=== PATIENT | female | born 1950 | race African-American/Black ===

== ENCOUNTER 2017-05-05 16:44 | Inpatient (IN) | payer MEDICARE, MEDICAID ==
--- NOTE | 2017-05-05 17:11 | RADIOLOGY REPORT (SQ) ---
EXAM DESCRIPTION: CT HEAD WITHOUT COMPLETED DATE/TIME: 05/05/2017 4:58 pm REASON FOR STUDY: bed mp stroke alert COMPARISON: None. TECHNIQUE: Axial images acquired through the brain without intravenous contrast. Images reviewed wi th bone, brain and subdural windows. Images stored on PACS. All CT scanners at this facility use dose modulation, iterative reconstruction, and/or weight based d osing when appropriate to reduce radiation dose to as low as reasonably achievable (ALARA). [facility]: Dose Right [facility]: CareDose [facility]: Dose Right [facility]: Teradose 4D [facility]: Smart Technologies RADIATION DOSE: Up-to-date CT equipment and radiation dose reduction techniques were employed. CTDIv ol: 64.6 mGy. DLP: 1163 mGy-cm. mGy. LIMITATIONS: None. FINDINGS: VENTRICLES: Normal size and contour. CEREBRUM: No masses. No hemorrhage. No midline shift. No evidence for acute infarction. Spotty de creased biparietal periventricular white matter density likely from chronic small vessel disease. Lo w attenuation in the right and left inferior basal ganglia likely perivascular spaces CEREBELLUM: No masses. No hemorrhage. No alteration of density. No evidence for acute infarction. EXTRAAXIAL SPACES: No fluid collections. No masses. ORBITS AND GLOBE: No intra- or extraconal masses. Normal contour of globe without masses. CALVARIUM: No fracture. PARANASAL SINUSES: No fluid or mucosal thickening. SOFT TISSUES: No mass or hematoma. OTHER: No other significant finding. IMPRESSION: Biparietal small vessel chronic appearing white matter disease. No CT evidence of acute ischemic change, acute intracranial hemorrhage, mass effect, or midline shift . EVIDENCE OF ACUTE STROKE: NO. COMMENT: Pertinent findings on the imaging study reported as a CRITICAL RESULT to At17:0 0 on 05/05/2017. Category of Critical Result: CT stroke alert Quality ID # [id number]: Final reports with documentation of one or more dose reduction techniques (e.g., Au tomated exposure control, adjustment of the mA and/or kV according to patient size, use of iterative reconstruction technique) TECHNICAL DOCUMENTATION: JOB ID: [id number] Submitt[employer]- All Rights Reserved
--- NOTE | 2017-05-05 17:15 | RADIOLOGY REPORT (SQ) ---
EXAM DESCRIPTION: CHEST SINGLE VIEW COMPLETED DATE/TIME: 05/05/2017 5:02 pm REASON FOR STUDY: bed mp stroke alert COMPARISON: None. EXAM PARAMETERS: NUMBER OF VIEWS: One view. TECHNIQUE: Single frontal radiographic view of the chest acquired. RADIATION DOSE: NA LIMITATIONS: None. FINDINGS: LUNGS AND PLEURA: No opacities, masses or pneumothorax. No pleural effusion. MEDIASTINUM AND HILAR STRUCTURES: No masses. Contour normal. HEART AND VASCULAR STRUCTURES: Heart normal in size. Normal vasculature. BONES: No acute findings. HARDWARE: None in the chest. OTHER: No other significant finding. IMPRESSION: NO ACUTE RADIOGRAPHIC FINDING IN THE CHEST. TECHNICAL DOCUMENTATION: JOB ID: [id number]
[2017-05-05 18:03] LABS: PROTHROMBIN TIME 12.8 SEC (11.4-15.4)
[2017-05-05 18:13] LABS: ABSOLUTE EOSINOPHILS # (AUTO) 0.1 10^3/uL (0.0-0.6); ABSOLUTE LYMPHOCYTES (AUTO) 0.9 10^3/uL (0.5-4.7); ABSOLUTE MONOCYTES (AUTO) 0.4 10^3/uL (0.1-1.4); ABSOLUTE NEUT (AUTO) 4.5 10^3/uL (1.7-8.2); BASOPHILS % (AUTO) 0.3 % (0-2); EOSINOPHILS % (AUTO) 0.9 % (0-6); HEMATOCRIT 33.7 % (36.0-47.0); HEMOGLOBIN 11.3 g/dL (12.0-15.5); HGB HCT DIFFERENCE 0.2; LYMPHOCYTES % (AUTO) 14.6 % (13-45); MEAN CORPUSCULAR HEMOGLOBIN 25.6 pg (27.0-33.4); MEAN CORPUSCULAR HGB CONC 33.5 g/dL (32.0-36.0); MEAN CORPUSCULAR VOLUME 76 fl (80-97); MONOCYTES % (AUTO) 7.2 % (3-13); RED BLOOD COUNT 4.41 10^6/uL (3.72-5.28); RED CELL DISTRIBUTION WIDTH 13.8 % (11.5-14.0); WHITE BLOOD COUNT 5.9 10^3/uL (4.0-10.5)
[2017-05-05 18:22] LABS: ALANINE AMINOTRANSFERASE 42 U/L (9-52); ALBUMIN 4.4 g/dL (3.5-5.0); ALKALINE PHOSPHATASE 117 U/L (38-126); ASPARTATE AMINO TRANSFERASE 39 U/L (14-36); BILIRUBIN,DIRECT 0.4 mg/dL (0.0-0.4); BILIRUBIN,TOTAL 0.5 mg/dL (0.2-1.3); BLOOD UREA NITROGEN 94 mg/dL (7-20); CARBON DIOXIDE 19 mmol/L (22-30); CHLORIDE 81 mmol/L (98-107); CREATINE KINASE 552 U/L (30-135); GLUCOSE 156 mg/dL (75-110); POTASSIUM 4.8 mmol/L (3.6-5.0); TOTAL PROTEIN 7.2 g/dL (6.3-8.2)
--- NOTE | 2017-05-05 18:23 | ER Document Report ---
ED Medical Screen (RME) - General Chief Complaint: Weakness Stated Complaint: POSSIBLE STROKE SYMPTOMS Time Seen by Provider: 05/05/17 17:22 - Related Data Allergies/Adverse Reactions: Sulfa (Sulfonamide Antibiotics) Allergy (Verified 05/05/17 16:51) Past Medical History - Social History Chew tobacco use (# tins/day): No Frequency of alcohol use: None Drug Abuse: None - Past Medical History Cardiac Medical History: Reports: Hx Heart Attack Endocrine Medical History: Reports: Hx Diabetes Mellitus Type 1 Renal/ Medical History: Denies: Hx Peritoneal Dialysis Past Surgical History: Reports: Hx Cardiac Catheterization - stents placed Physical Exam - Vital signs Vitals: Temp Pulse BP Pulse Ox 97.3 F 67 118/57 L 100 05/05/17 16:45 05/05/17 16:45 05/05/17 16:45 05/05/17 16:45 Course - Vital Signs Vital signs: Temp Pulse Resp BP Pulse Ox 97.3 F 67 118/57 L 100 05/05/17 16:45 05/05/17 16:45 05/05/17 16:45 05/05/17 17:30 - Laboratory Result Diagrams: 05/05/17 17:45 05/05/17 17:45 Laboratory results interpreted by me: 05/05/17 17:45 Hgb 11.3 L Hct 33.7 L MCV 76 L MCH 25.6 L
[2017-05-05 18:28] LABS: CREATININE RESULT 4.69 mg/dL (0.52-1.25)
[2017-05-05 18:29] LABS: ANION GAP 17 (5-19)
[2017-05-05 18:31] LABS: SODIUM 117.4 mmol/L (137-145)
--- NOTE | 2017-05-05 18:31 | ER Document Report ---
ED General - General Chief Complaint: Weakness Stated Complaint: POSSIBLE STROKE SYMPTOMS Time Seen by Provider: 05/05/17 17:22 Notes: Patient says that she has noticed her mouth twitching this morning, both the upper and lower lips. It comes and goes. She has never had it before. She also has noted some tightness in the center of her chest this morning. It is also intermittent. Patient is visiting here from [place]. She was not feeling well yesterday with a headache and some problems with her vision and feeling generalized weakness. She is an insulin-dependent diabetic. She went to a local acute care clinic yesterday. Her blood pressure was noted to be 60/33 and she is on 4 or 5 medications for her blood pressure. She was advised to hold all of her blood pressure medicines for 3 or 4 days before resuming them. She has an appointment to be rechecked at that acute care facility tomorrow. Patient says she has occasional shortness of breath. Has not had any fever or chills or sweats. Denies any UTI symptoms. Patient traveled here from [place] by car, but that was about a month ago. Denies any leg pain or swelling. - Related Data Allergies/Adverse Reactions: Sulfa (Sulfonamide Antibiotics) Allergy (Verified 05/05/17 16:51) Past Medical History - Social History Smoking Status: Never Smoker Chew tobacco use (# tins/day): No Frequency of alcohol use: None Drug Abuse: None Family History: Reviewed & Not Pertinent - Past Medical History Cardiac Medical History: Reports: Hx Heart Attack, Hx Hypertension, Other - Patient describes having a cardiac cath and says clots removed. Endocrine Medical History: Reports: Hx Diabetes Mellitus Type 1 Renal/ Medical History: Denies: Hx Peritoneal Dialysis Musculoskeltal Medical History: Reports Hx Musculoskeletal Trauma - Fractured left femur pinned Past Surgical History: Reports: Hx Cardiac Catheterization - stents placed, Hx Orthopedic Surgery - Fracture left femur Review of Systems - Review of Systems Notes: REVIEW OF SYSTEMS: CONSTITUTIONAL : Denies fever. EENT: Denies eye, ear, nose or mouth or throat pain or other symptoms. See HPI. CARDIOVASCULAR: Intermittent chest pains. RESPIRATORY: Denies cough, chest congestion, but occasionally feels shortness of breath. GASTROINTESTINAL: Denies abdominal pain or nausea, vomiting, or diarrhea. GENITOURINARY: Denies difficulty or painful urinating, urinary frequency, blood in urine. MUSCULOSKELETAL: Denies back or neck pain. Denies joint pain or swelling. SKIN: Denies rash or skin lesions. NEUROLOGICAL: Denies LOC or altered mental status. Denies headache. Denies sensory loss or motor deficits. ALL OTHER SYSTEMS REVIEWED AND NEGATIVE. Physical Exam - Vital signs Vitals: Temp Pulse BP Pulse Ox 97.3 F 67 118/57 L 100 05/05/17 16:45 05/05/17 16:45 05/05/17 16:45 05/05/17 16:45 Interpretation: Normal - Notes Notes: PHYSICAL EXAMINATION: GENERAL: Well-appearing, in no acute distress. Blood pressure 118/57. HEAD: Atraumatic, normocephalic. EYES: Pupils equal round and reactive to light, extraocular movements intact. ENT: oropharynx clear without exudates. Moist mucous membranes. I do not see patients lips twitching or contorting in any way. Speech does not ap NECK: Normal range of motion, supple. No carotid bruits heard. LUNGS: Breath sounds clear and equal bilaterally. HEART: Regular rate and rhythm without murmurs. ABDOMEN: Soft, nontender. No guarding or rebound. BACK: No tenderness throughout entire back. EXTREMITIES: Normal range of motion without pain. NEUROLOGICAL: Normal speech, normal gait. Normal sensory, motor, and reflex exams. Awake, alert, and oriented x3. Cranial nerves normal. PSYCH: Normal mood, normal affect. SKIN: Warm, dry, no rashes. Course - Re-evaluation Re-evalutation: 05/05/17 20:[address] Tinajero about admitting patient. He had concerns about admitting the patient without having nephrology backup here this coming week. I spoke with Dr. Santacruz at [facility], who did not feel the patient would require dialysis based on current laboratory results. He was very helpful in offering recommended workup and treatment. Dr. Tinajero is agreeable to admitting the patient at this time to [facility]. - Vital Signs Vital signs: Temp Pulse Resp BP Pulse Ox 97.3 F 67 18 118/50 L 100 05/05/17 16:45 05/05/17 16:45 05/05/17 19:01 05/05/17 19:01 05/05/17 19:01 - Laboratory Result Diagrams: 05/05/17 17:45 05/05/17 17:45 Laboratory results interpreted by me: 05/05/17 05/05/17 05/05/17 17:45 17:45 17:45 Hgb 11.3 L Hct 33.7 L MCV 76 L MCH 25.6 L Sodium 117.4 L* Chloride 81 L Carbon Dioxide 19 L BUN 94 H Creatinine 4.69 H Est GFR ( Amer) 11 L Est GFR (Non-Af Amer) 9 L Glucose 156 H Calcium 11.0 H AST 39 H Creatine Kinase 552 H CK-MB (CK-2) 6.59 H Urine Blood 05/05/17 18:26 Hgb Hct MCV MCH Sodium Chloride Carbon Dioxide BUN Creatinine Est GFR ( Amer) Est GFR (Non-Af Amer) Glucose Calcium AST Creatine Kinase CK-MB (CK-2) Urine Blood SMALL H - Diagnostic Test Radiology reviewed: Image reviewed, Reports reviewed - CT scan of the brain is normal. Critical Care Note - Critical Care Note Total time excluding time spent on procedures (mins): 40 Discharge - Discharge Clinical Impression: Renal insufficiency, Hyponatremia Condition: Fair Disposition: ADMITTED INPATIENT Admitting Provider: Hospitalist Unit Admitted: IMCU
[2017-05-05 18:33] LABS: CREATINE KINASE MB 6.59 ng/mL (<4.55); TROPONIN I 0.013 ng/mL
[2017-05-05] MEDS ORDERED: NORMAL SALINE 1000 ML 1,000 ML IV ONE ×2 (18:57→20:11)
[2017-05-05 19:02] LABS: APPEARANCE,URINE CLEAR; BILIRUBIN,URINE NEGATIVE (NEGATIVE); GLUCOSE, URINE NEGATIVE (NEGATIVE); KETONES,URINE NEGATIVE (NEGATIVE); LEUKOCYTE ESTERASE,URINE NEGATIVE (NEGATIVE); NITRITE,URINE NEGATIVE (NEGATIVE); PROTEIN,URINE NEGATIVE (NEGATIVE); URINE SPECIFIC GRAVITY 1.004; UROBILINOGEN,URINE NEGATIVE mg/dL (<2.0)
[2017-05-05 20:18] LABS: ADD ON TESTING BLD IN LAB ACKNOWLEDGE
[2017-05-05 20:39] LABS: MAGNESIUM 1.7 mg/dL (1.6-2.3); PHOSPHORUS 4.7 mg/dL (2.5-4.5)
[2017-05-05] MEDS ORDERED: INSULIN REG, HUMAN 100 UNIT/ML 3 ML VIAL (PYX) SUBCUT PRN (21:23)
[2017-05-05] MEDS ORDERED: DEXTROSE 50%-WATER 25 GM/50 ML DISP.SYRIN IV PRN ×2 (21:23)
[2017-05-05] MEDS ORDERED: DEXTROSE 40% GEL 15 GM TUBE PO PRN ×2 (21:23)
[2017-05-05] MEDS ORDERED: GLUCAGON,HUMAN RECOMB 1 MG INJ IM PRN (21:23)
[2017-05-05] MEDS ORDERED: PROMETHAZINE HCL 25 MG TABLET PO PRN (21:31)
[2017-05-05] MEDS ORDERED: ACETAMINOPHEN 325 MG TABLET PO PRN (21:31)
[2017-05-05] MEDS ORDERED: NORMAL SALINE 1000 ML 1,000 ML IV PRN (21:34)
--- NOTE | 2017-05-05 21:58 | PDOC H&P ---
History of Present Illness Admission Date/PCP: 05/05/17 20:36 Dr. Durham, [facility]. 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 Patient has been discussed with emergency room physician who evaluated the patient. Went to a local urgent care yesterday for complaints of mild headache and vision problems along with generalized weakness. Blood pressure there was reportedly 60/33. She was discharged to home, with instructions to hold her blood pressure medicines and return to acute care facility tomorrow. Presented to the emergency room this evening with complaints of intermittent mild twitching of her lips, never having had this before, along with intermittent now resolved mild substernal chest tightness. Has had nausea but no vomiting. No fever or chills. Has had a number of diarrheal stools over the last 2-3 days, without blood. 2 today. No friends or family with similar complaints. No abdominal pain. States a number of her medication dosages were increased by her primary care provider approximately a month ago. She is compliant with her medications. Currently resting quietly, denying any pain. Emergency room physician did discuss the patient by phone with Dr. Santacruz, on- call auto service advisor at [facility]. We have no nephrology coverage at our facility this week. Dr. Santacruz gave basic recommendations, but did not feel dialysis was warranted, and also did not specifically feel that transfer to a tertiary center was warranted. Dictation via voice recognition software. Laboratory results are listed in [facility] and are reviewed. No prior labs available for comparison. X-ray summary results are listed below, with full report(s) reviewed. EKG reviewed. No prior EKG available for comparison. Social history/personal habits: Single. 8 children. Retired. Allergies/adverse reactions are listed in [facility] and are reviewed. Home medications initially autopopulated into [employer] may not accurately reflect patient's true medications, dosages, and/or frequencies. smog technician to reconcile medications. Bottle review did reveal patient currently is on Risperdal, sertraline, twice daily Lasix and Spironolactone, along with daily Toprol-XL, lisinopril, and chlorthalidone. Also takes Lantus 25 units twice daily. Unfortunately, patient not certain of all medications/dosages/frequencies. Thinks she is also on medication for hyperlipidemia, but no such medication noted in her bottles. REVIEW OF SYSTEMS: Constitutional: No fever or chills. Eyes: Wears glasses. ENT: No swallowing problems or complaints. Denies hearing loss. Pulmonary: No current complaints. Cardiovascular: See history and present illness. Gastrointestinal: See history and present illness. Skin: No current complaints, including rashes. Hematologic: Denies easy bruising. Neurologic: See history and present illness. Musculoskeletal: Joint pain from arthritis. Psychiatric: Denies anxiety or depression. Endocrine: No current complaints, including polyuria. Genitourinary: No current complaints, including dysuria. PHYSICAL EXAMINATION: Female emergency room nursing coordinator Hansa is present. 5 feet 5 inches tall. 88 kg. BMI 32.3 kg/m. Blood pressure 139/62. Pulse 84 and regular. 100% saturation on room air. Respirations are 19 and unlabored. Temperature 97.3. Somewhat obese otherwise well-developed -Prydeinig female appearing approximately her stated age. Pleasant awake alert and cooperative. No obvious distress other than perhaps mildly anxious. Skin is warm and dry. No grossly obvious evidence of rash in areas of skin examined. No subcutaneous nodules palpated. ENT: Hearing grossly normal to normal conversation. Tongue midline on protrusion pink and slightly moist. Eyes: No scleral icterus. Pupils equal and reactive to light at 4 mm. [place] conjunctivae. Neck is supple and nontender to gentle active range of motion and palpation. Midline trachea. No palpable thyroid nodule mass enlargement or tenderness. Lymphatic: No palpable cervical or clavicular nodes. Neck and lymphatic exams limited by patient body habitus. Psychiatric: Reasonable insight into acute and chronic medical issues. Oriented to time location and why here. Lungs: Auscultation reveals clear and equal breath sounds bilaterally. No use of accessory respiratory muscles. Cardiovascular: Heart regular rate and rhythm, without gallop murmur or rub. No carotid or abdominal aortic bruits. No ankle or pedal edema. Faintly palpable dorsalis pedis pulses. Abdomen:soft somewhat obese nontender with positive bowel sounds. Unable to adequately evaluate abdomen for masses or organomegaly due to body habitus. Does have very mild symmetric bilateral costovertebral angle tenderness, but this is not too overly remarkable. Extremities: Feet are warm and dry. No calf tenderness to compression. No grossly obvious visual evidence of calf swelling. Gentle manipulation of lower extremities fails to reveal any obvious evidence of injury or instability to knees hips or ankles. Neurologic: Moves upper extremities grossly normally. Patellar reflexes absent. Absent Babinski. Light touch is decreased at feet, a chronic finding, per patient, without recent change. Dorsiflexion and plantarflexion of feet 5 / 5 and symmetric. Past Medical History Cardiac Medical History: Reports: Atrial Fibrillation - History of same; anticoagulant DC'd spring 2016., Coronary Artery Disease - Stent 1 more than 5 years ago, Myocardial Infarction, Hyperlipidema, Hypertension Denies: Congestive Heart Failure, DVT, Pulmonary Embolism Pulmonary Medical History: Denies: Asthma, Chronic Obstructive Pulmonary Disease (COPD), Sleep Apnea EENT Medical History: Reports: Eyes - Glasses Denies: Ears, Throat Neurological Medical History: Reports: Ischemic CVA, Seizures - Distant history 1; never on antiepileptic, Other - Stroke several years ago, without residual aftereffects. Denies: Hemorrhagic CVA Endocrine Medical History: Reports: Diabetes Mellitus Type 1 Renal/ Medical History: Denies: Chronic Kidney Disease GI Medical History: Reports: Peptic Ulcer Disease, Other - "Liver problems." History of bleeding ulcer. Denies: Cirrhosis, Gastroesophageal Reflux Disease, Hepatitis Musculoskeltal Medical History: Reports: Arthritis Skin Medical History: Reports: None Psychiatric Medical History: Denies: Alcohol Dependency, Depression, General Anxiety Disorder, Substance Abuse, Tobacco Dependency Infectious Medical History: Denies: Hepatitis B, Hepatitis C Past Surgical History Past Surgical History: Reports: Cholecystectomy, Coronary Stent - 1, more than 5 years ago, Hysterectomy, Orthopedic Surgery - Fracture left femur Social History Information Source: Emergency Med Personnel, [facility] Records Lives with: Family Smoking Status: Former Smoker Frequency of Alcohol Use: None Drugs: None - Advance Directive Resuscitation Status: Full Code Surrogate healthcare decision maker:: Gm Bautista Family History Family History: Reviewed & Not Pertinent Parental Family History Reviewed: Yes - Mother of cirrhosis; uncertain cause of father's Children Family History Reviewed: Yes - Healthy Sibling(s) Family History Reviewed.: Yes - Hypertension Medication/Allergy Home Medications: Donepezil HCl [Aricept 5 mg Tablet] 5 mg PO DAILY 05/05/17 Ferrous Sulfate [Feosol 325 mg Tablet] 325 mg PO DAILY 05/05/17 Furosemide [Lasix 40 mg Tablet] 40 mg PO BID 05/05/17 Insulin Glargine,Hum.rec.anlog [Lantus Solostar] 25 unit SQ Q12 05/05/17 Lisinopril [Prinivil] 20 mg PO DAILY 05/05/17 Methocarbamol [Robaxin 500 mg Tablet] 500 mg PO Q8HP PRN 05/05/17 Metoprolol Succinate [Toprol Xl 25 mg Tab.sr] 25 mg PO DAILY 05/05/17 [place]-3 Fatty Acids [[place]-3] 1,000 mg PO DAILY 05/05/17 RX: Chlorthalidone [Chlorthalidone 50 mg Tablet] 50 mg PO DAILY 05/05/17 RX: Omeprazole 40 mg PO DAILY 05/05/17 Risperidone [Risperdal] 2 mg PO QHS 05/05/17 Sertraline HCl [Zoloft 50 mg Tablet] 100 mg PO DAILY 05/05/17 Spironolactone [Aldactone] 50 mg PO Q12 05/05/17 Allergies/Adverse Reactions: Sulfa (Sulfonamide Antibiotics) Allergy (Verified 05/05/17 16:51) Physical Exam Vital Signs: Temp Pulse Resp BP Pulse Ox 97.3 F 67 18 118/50 L 100 05/05/17 16:45 05/05/17 16:45 05/05/17 19:01 05/05/17 19:01 05/05/17 19:01 Results Impressions: Chest X-Ray 05/05/17 16:50 IMPRESSION: NO ACUTE RADIOGRAPHIC FINDING IN THE CHEST. Head CT 05/05/17 16:50 IMPRESSION: Biparietal small vessel chronic appearing white matter disease. No CT evidence of acute ischemic change, acute intracranial hemorrhage, mass effect, or midline shift. EVIDENCE OF ACUTE STROKE: NO. Assessment & Plan - Diagnosis (1) Anemia Qualifiers: Anemia type: iron deficiency Is this a current diagnosis for this admission?: Yes Plan: No prior labs available for comparison. Follow-up CBC with differential. No need for transfusion at present time. (2) Diarrhea Qualifiers: Diarrhea type: unspecified type Qualified Code(s): R19.7 - Diarrhea, unspecified Is this a current diagnosis for this admission?: Yes Plan: 2 episodes today. If continues, will obtain stool for C. difficile. (3) Hypercalcemia Is this a current diagnosis for this admission?: Yes Plan: Follow-up chemistry. (4) Chest pain Qualifiers: Chest pain type: unspecified Qualified Code(s): R07.9 - Chest pain, unspecified Is this a current diagnosis for this admission?: Yes Plan: No outward evidence of acute coronary syndrome, but with known underlying coronary artery disease, patient understands to notify staff should chest pain recur. Serial troponin . Repeat EKG. lipid panel. I have strongly encouraged patient not to get out of bed without notifying staff , to avoid a fall with injury. Knee high SCDs for DVT prophylaxis, along with subcu heparin. Impression and plans were discussed with patient, who concurs. Time spent in evaluation and management of patient: 73 minutes. (5) Stented coronary artery Is this a current diagnosis for this admission?: Yes (6) HLD (hyperlipidemia) Qualifiers: Hyperlipidemia type: unspecified Qualified Code(s): E78.5 - Hyperlipidemia , unspecified Is this a current diagnosis for this admission?: Yes Plan: Resume home medications as appropriate once these have been determined and reviewed. (7) Hypertension complicating diabetes Is this a current diagnosis for this admission?: Yes Plan: Resume home medications as appropriate once these have been determined and reviewed. (8) Diabetic peripheral neuropathy associated with type 1 diabetes mellitus Is this a current diagnosis for this admission?: Yes Plan: Diabetic cardiac prerenal diet. Accu-Cheks with appropriate sliding scale coverage. Resume home medications as appropriate once these have been determined and reviewed. (9) Renal insufficiency Is this a current diagnosis for this admission?: Yes Plan: Suspect an element of dehydration, with patient on Lasix, Spironolactone, and chlorthalidone, along with diarrhea. No prior labs available for comparison. Renal ultrasound. IV fluids. Serial chemistry. (10) Hyponatremia Is this a current diagnosis for this admission?: Yes Plan: Urine and serum osmolarity, along with urine sodium. Serial chemistry. - Time Time Spent: 50 to 70 Minutes Medications reviewed and adjusted accordingly: No - Patient not certain of all medications. Anticipated discharge: Home Within: Other - Inpatient Certification Based on my medical assessment, after consideration of the patient's comorbidities, presenting symptoms, or acuity I expect that the services needed warrant INPATIENT care.: Yes I certify that my determination is in accordance with my understanding of Medicare's requirements for reasonable and necessary INPATIENT services [42 CFR 412.3e].: Yes Medical Necessity: Need Close Monitoring Due to Risk of Patient Decompensation, Need For IV Fluids, Risk of Complication if Not Cared For in Hospital Post Hospital Care: D/C or Transfer Summary
[2017-05-05] MEDS: HEPARIN SOD (PORCINE) 5,000 UNIT/ML 1 ML SYRINGE SUBCUT SCH (22:20)
[2017-05-05 22:44] LABS: ANION GAP 15 (5-19); BLOOD UREA NITROGEN 95 mg/dL (7-20); CALCIUM 10.7 mg/dL (8.4-10.2); CARBON DIOXIDE 21 mmol/L (22-30); CHLORIDE 85 mmol/L (98-107); CREATININE RESULT 4.17 mg/dL (0.52-1.25); GLUCOSE 133 mg/dL (75-110); POTASSIUM 4.6 mmol/L (3.6-5.0); SODIUM 121.1 mmol/L (137-145)
[2017-05-05] MEDS ORDERED: 1/2 NORMAL SALINE 1,000 ML IV PRN (23:51)
--- NOTE | 2017-05-06 01:17 | RADIOLOGY REPORT (SQ) ---
EXAM DESCRIPTION: U/S RETROPERITON (RENAL/AORTA) COMPLETED DATE/TIME: 05/06/2017 1:09 am REASON FOR STUDY: renal failure COMPARISON: None. TECHNIQUE: Grayscale images acquired of the kidneys and bladder and recorded on PACS. Additional maggi ected color Doppler images recorded. LIMITATIONS: None. FINDINGS: RIGHT KIDNEY: Measures 7.8 cm in length. Echogenicity within normal limits. No hydroneph rosis. LEFT KIDNEY: Measures 8.8 cm in length. Echogenicity within normal limits. No hydronephrosis. BLADDER: Partially distended. The right ureteral jet was visualized. IMPRESSION: No hydronephrosis. TECHNICAL DOCUMENTATION: JOB ID: [id number] [employer]- All Rights Reserved
[2017-05-06 02:38] LABS: ANION GAP 12 (5-19); BLOOD UREA NITROGEN 94 mg/dL (7-20); CALCIUM 10.8 mg/dL (8.4-10.2); CARBON DIOXIDE 21 mmol/L (22-30); CHLORIDE 88 mmol/L (98-107); CREATININE RESULT 4.08 mg/dL (0.52-1.25); GLUCOSE 177 mg/dL (75-110); POTASSIUM 4.9 mmol/L (3.6-5.0); SODIUM 121.3 mmol/L (137-145)
[2017-05-06 06:16] LABS: ABSOLUTE EOSINOPHILS # (AUTO) 0.1 10^3/uL (0.0-0.6); ABSOLUTE LYMPHOCYTES (AUTO) 0.7 10^3/uL (0.5-4.7); ABSOLUTE MONOCYTES (AUTO) 0.4 10^3/uL (0.1-1.4); ABSOLUTE NEUT (AUTO) 3.6 10^3/uL (1.7-8.2); BASOPHILS % (AUTO) 0.5 % (0-2); EOSINOPHILS % (AUTO) 1.2 % (0-6); HEMATOCRIT 30.4 % (36.0-47.0); HEMOGLOBIN 10.2 g/dL (12.0-15.5); HGB HCT DIFFERENCE 0.2; LYMPHOCYTES % (AUTO) 15.3 % (13-45); MEAN CORPUSCULAR HEMOGLOBIN 25.4 pg (27.0-33.4); MEAN CORPUSCULAR HGB CONC 33.6 g/dL (32.0-36.0); MEAN CORPUSCULAR VOLUME 76 fl (80-97); MONOCYTES % (AUTO) 7.4 % (3-13); RED BLOOD COUNT 4.01 10^6/uL (3.72-5.28); SEGMENTED NEUTROPHILS % (AUTO) 75.6 % (42-78); WHITE BLOOD COUNT 4.8 10^3/uL (4.0-10.5)
[2017-05-06 06:28] LABS: ANION GAP 15 (5-19); BLOOD UREA NITROGEN 90 mg/dL (7-20); CALCIUM 11.2 mg/dL (8.4-10.2); CARBON DIOXIDE 20 mmol/L (22-30); CHLORIDE 88 mmol/L (98-107); CREATININE RESULT 3.72 mg/dL (0.52-1.25); Direct HDL 58 mg/dL (>40); GLUCOSE 139 mg/dL (75-110); POTASSIUM 4.8 mmol/L (3.6-5.0); SODIUM 123.1 mmol/L (137-145); TRIGLYCERIDES 101 mg/dL (<150)
[2017-05-06 06:39] LABS: DIRECT LDL 110 mg/dL (<100)
[2017-05-06] MEDS ORDERED: DEXTROSE 5%-WATER 1000 ML 1,000 ML IV PRN (06:48)
[2017-05-06] MEDS ORDERED: METHOCARBAMOL 500 MG TABLET PO PRN (10:25)
[2017-05-06] MEDS ORDERED: METOPROLOL TARTRATE PF/INJ 5 MG/5 ML SDV IV ONE (10:30)
[2017-05-06] MEDS: HEPARIN SOD (PORCINE) 5,000 UNIT/ML 1 ML SYRINGE SUBCUT SCH ×2 (10:30→21:31)
[2017-05-06] MEDS ORDERED: NORMAL SALINE 1000 ML 1,000 ML IV PRN (11:18)
[2017-05-06 11:24] LABS: ANION GAP 14 (5-19); BLOOD UREA NITROGEN 82 mg/dL (7-20); CALCIUM 11.1 mg/dL (8.4-10.2); CARBON DIOXIDE 22 mmol/L (22-30); CHLORIDE 85 mmol/L (98-107); GLUCOSE 230 mg/dL (75-110); POTASSIUM 4.7 mmol/L (3.6-5.0); SODIUM 121.2 mmol/L (137-145)
[2017-05-06] MEDS ORDERED: SERTRALINE HCL 50 MG TABLET PO ONE (11:30)
[2017-05-06] MEDS ORDERED: FUROSEMIDE 40 MG TABLET PO ONE (11:30)
[2017-05-06] MEDS ORDERED: CHLORTHALIDONE 25 MG TABLET PO ONE (11:30)
[2017-05-06] MEDS ORDERED: LISINOPRIL 10 MG TABLET PO ONE (11:30)
[2017-05-06] MEDS ORDERED: DONEPEZIL HCL 5 MG TABLET PO ONE (11:30)
[2017-05-06] MEDS ORDERED: LANSOPRAZOLE 30 MG TAB.RAP.DR PO ONE (11:30)
[2017-05-06] MEDS ORDERED: SPIRONOLACTONE 25 MG TABLET PO ONE (11:30)
[2017-05-06] MEDS ORDERED: FERROUS SULFATE 325 MG TABLET PO ONE (11:30)
[2017-05-06] MEDS ORDERED: OMEGA-3 ACID ETHYL ESTERS 1 GM CAPSULE PO ONE (11:30)
[2017-05-06] MEDS ORDERED: METOPROLOL SUCCINATE 25 MG TAB.SR.24H PO ONE (11:30)
[2017-05-06] MEDS ORDERED: INSULIN GLARGINE,HUM.REC.ANLOG 300 UNIT/3 ML INSULN.PEN SUBCUT ONE (11:30)
--- NOTE | 2017-05-06 11:58 | PDOC CONSULTATION ---
Consultation Consult Date: 05/06/17 Attending physician:: REY Espino BUSTEANDREZ Consult reason:: Atrial fibrillation History of Present Illness Admission Date/PCP: 05/05/17 21:26 Patient complains of: Shortness of breath History of Present Illness: RADHA HERNANDEZ is a 67 year old -[place] female with type 1 diabetes mellitus with peripheral neuropathy, difficult to control blood pressure, on multiple medications for same, hyperlipidemia, history of atrial fibrillation, with anticoagulant stopped earlier this year, known coronary artery disease, status post stent implant more than 5 years ago, but, by her account, no known underlying renal disease, who presents to the emergency room for evaluation of above complaint. Patient has been discussed with emergency room physician who evaluated the patient. Went to a local urgent care yesterday for complaints of mild headache and vision problems along with generalized weakness. Blood pressure there was reportedly 60/33. She was discharged to home, with instructions to hold her blood pressure medicines and return to acute care facility tomorrow. Presented to the emergency room this evening with complaints of intermittent mild twitching of her lips, never having had this before, along with intermittent now resolved mild substernal chest tightness. Has had nausea but no vomiting. No fever or chills. Has had a number of diarrheal stools over the last 2-3 days, without blood. 2 today. No friends or family with similar complaints. No abdominal pain. States a number of her medication dosages were increased by her primary care provider approximately a month ago. She is compliant with her medications. Currently resting quietly, denying any pain. Emergency room physician did discuss the patient by phone with Dr. Santacruz, on- call deputy united states marshal at [facility]. We have no nephrology coverage at our facility this week. Dr. Santacruz gave basic recommendations, but did not feel dialysis was warranted, and also did not specifically feel that transfer to a tertiary center was warranted. This history was reviewed and confirmed. I interviewed this patient. She claims that she has also noted some shortness of breath and has a long history of intermittent palpitations. She describes history of prior myocardial infarction and history of stent placement approximately 5 years ago at the [facility] in [place], [place] by the name of [facility]. Will try to obtain those records. This morning on rounds by the hospitalist she was noted to be in atrial fibrillation. I was therefore consulted. Review of history suggests that patient has had atrial fibrillation in the past. Past Medical History Cardiac Medical History: Reports: Atrial Fibrillation - History of same; anticoagulant DC'd spring 2016., Coronary Artery Disease - Stent 1 more than 5 years ago, Myocardial Infarction, Hyperlipidema, Hypertension, Other - Patient describes having a cardiac cath and says clots removed. Denies: Congestive Heart Failure, DVT, Pulmonary Embolism Pulmonary Medical History: Denies: Asthma, Chronic Obstructive Pulmonary Disease (COPD), Sleep Apnea EENT Medical History: Reports: Eyes - Glasses Denies: Ears, Throat Neurological Medical History: Reports: Ischemic CVA, Seizures - Distant history 1; never on antiepileptic, Other - Stroke several years ago, without residual aftereffects. Denies: Hemorrhagic CVA Endocrine Medical History: Reports: Diabetes Mellitus Type 1 Renal/ Medical History: Denies: Chronic Kidney Disease GI Medical History: Reports: Peptic Ulcer Disease, Other - "Liver problems." History of bleeding ulcer. Denies: Cirrhosis, Gastroesophageal Reflux Disease, Hepatitis Musculoskeltal Medical History: Reports: Arthritis Skin Medical History: Reports: None Psychiatric Medical History: Denies: Alcohol Dependency, Depression, General Anxiety Disorder, Substance Abuse, Tobacco Dependency Infectious Medical History: Denies: Hepatitis B, Hepatitis C Past Surgical History Past Surgical History: Reports: Cardiac Catheterization - stents placed, Cholecystectomy, Coronary Stent - 1, more than 5 years ago, Hysterectomy, Orthopedic Surgery - Fracture left femur Social History Information Source: Patient Lives with: Family Smoking Status: Former Smoker Last Time Smoked: 44 years ago Frequency of Alcohol Use: None Drugs: None Hx Prescription Drug Abuse: No - Advance Directive Resuscitation Status: Full Code Surrogate healthcare decision maker:: Patient's son and [id number] are surrogate decision-maker Family History Family History: Hypertension Parental Family History Reviewed: Yes Children Family History Reviewed: Yes Sibling(s) Family History Reviewed.: Yes Medication/Allergy Home Medications: Chlorthalidone [Chlorthalidone 50 mg Tablet] 50 mg PO DAILY 05/05/17 Donepezil HCl [Aricept 5 mg Tablet] 5 mg PO DAILY 05/05/17 Ferrous Sulfate [Feosol 325 mg Tablet] 325 mg PO DAILY 05/05/17 Furosemide [Lasix 40 mg Tablet] 40 mg PO BID 05/05/17 Insulin Glargine,Hum.rec.anlog [Lantus Solostar] 25 unit SQ Q12 05/05/17 Lisinopril [Prinivil] 20 mg PO DAILY 05/05/17 Methocarbamol [Robaxin 500 mg Tablet] 500 mg PO Q8HP PRN 05/05/17 Metoprolol Succinate [Toprol Xl 25 mg Tab.sr] 25 mg PO DAILY 05/05/17 Elrama-3 Fatty Acids [Elrama-3] 1,000 mg PO DAILY 05/05/17 Omeprazole 40 mg PO DAILY 05/05/17 Risperidone [Risperdal] 2 mg PO QHS 05/05/17 Sertraline HCl [Zoloft 50 mg Tablet] 100 mg PO DAILY 05/05/17 Spironolactone [Aldactone] 50 mg PO Q12 05/05/17 Atorvastatin Calcium [Lipitor 20 mg Tablet] 20 mg PO QHS #30 tablet 05/06/17 Allergies/Adverse Reactions: Sulfa (Sulfonamide Antibiotics) Allergy (Verified 05/05/17 16:51) Review of Systems Review of Systems: Please see history of present illness and past medical history as wall. Constitutional: No fever or chills reported. Head : No recent chronic headaches, recent head injury. Eyes: No recent eye pain, diplopia, redness, discharge, acute visual changes. Ears: No recent chronic ear pain, acute hearing loss, ear discharge. Oral cavity: No recent ulcerations, bleeding, oral cavity discomfort. Neck: No recent acute neck pain reported. Hematologic: No recent easy bruising or bleeding or hematologic malignancy reported. Lymphatic: No recent lymphatic malignancy, chronic lymphadenopathy reported yet Cardiovascular system review: See history of present illness. Respiratory system review: No recent chronic cough, hemoptysis, blood clots in the lungs reported. Mild Shortness of breath on exertion Gastrointestinal system review: Negative for any recent acute or chronic abdominal pain, hematemesis, melena, recent change in bowel habits. Genitourinary system review: No recent acute or chronic hematuria, flank pain, UTI etc. reported. Skin system review: Negative for any recent abnormal bruising, no rash, no pruritus reported. Neurologic: Describes history of prior strokes and mini strokes but denied seizure disorder. Psychologic: No history of major psychosis or major depression reported. Musculoskeletal: Minor aches and pains reported. No acute joint swelling reported. Endocrine: No recent polyuria, polydipsia, recent heat or cold intolerance. Physical Exam Vital Signs: Temp Pulse Resp BP Pulse Ox 97.9 F 79 20 113/52 L 99 05/06/17 07:50 05/06/17 07:50 05/06/17 07:50 05/06/17 07:50 05/06/17 07:50 Intake & Output 05/05/17 05/06/17 05/07/17 06:59 06:59 06:59 Intake Total 2061 Output Total 1150 Balance 911 Weight 90 kg Exam: GENERAL: well-nourished and in no acute distress. Alert and oriented x3 HEAD: Atraumatic, normocephalic. EYES: Pupils equal round and reactive to light, extraocular movements intact, sclera anicteric, conjunctiva are normal. ENT: TMs normal, nares patent, oropharynx clear without exudates. Moist mucous membranes. No oral ulcerations or bleeding gums noted NECK: supple without lymphadenopathy. Trachea is central. No cervical or axillary lymphadenopathy noted. Carotids are 2+, JVD WNL LUNGS: Respiration seems nonlabored, no significant accessory muscle action noted. Breath sounds clear to auscultation bilaterally and equal noted. No wheezes rales or rhonchi noted. No significant dullness noted on percussion. CHEST: Palpation of the chest wall shows no significant chest wall tenderness. No other significant abnormalities noted. 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 ABDOMEN: Soft, no significant tenderness appreciated, normoactive bowel sounds. No guarding, no rebound. No rigidity noted . No masses appreciated. EXTREMITIES: Pedal pulses are 1-2+, no calf tenderness noted. No clubbing or cyanosis.trace to 1+ pedal edema noted NEUROLOGICAL: Focused neurological exam showed no significant neurologic deficit. Normal speech, no focal weakness appreciated. PSYCH: Normal mood, normal affect. Judgment and insight within normal limits. SKIN: No significant ecchymosis, rash, ulcerations or signs of pruritus noted. MUSCULOSKELETAL EXAM: No significant joint swelling noted. Results Laboratory Results: 05/06/17 06:07 05/06/17 10:11 05/05/17 05/06/17 05/06/17 22:05 02:16 02:16 WBC RBC Hgb Hct MCV MCH MCHC RDW Plt Count Seg Neutrophils % Lymphocytes % Monocytes % Eosinophils % Basophils % Absolute Neutrophils Absolute Lymphocytes Absolute Monocytes Absolute Eosinophils Absolute Basophils Sodium 121.1 L 121.3 L Potassium 4.6 4.9 Chloride 85 L 88 L Carbon Dioxide 21 L 21 L Anion Gap 15 12 BUN 95 H 94 H Creatinine 4.17 H 4.08 H Est GFR ( Amer) 13 L 13 L Est GFR (Non-Af Amer) 11 L 11 L Glucose 133 H 177 H Calcium 10.7 H 10.8 H Triglycerides Cholesterol LDL Cholesterol Direct VLDL Cholesterol HDL Cholesterol TSH 0.89 05/06/17 05/06/17 05/06/17 06:07 06:07 10:11 WBC 4.8 RBC 4.01 Hgb 10.2 L Hct 30.4 L MCV 76 L MCH 25.4 L MCHC 33.6 RDW 14.0 Plt Count 283 Seg Neutrophils % 75.6 Lymphocytes % 15.3 Monocytes % 7.4 Eosinophils % 1.2 Basophils % 0.5 Absolute Neutrophils 3.6 Absolute Lymphocytes 0.7 Absolute Monocytes 0.4 Absolute Eosinophils 0.1 Absolute Basophils 0.0 Sodium 123.1 L 121.2 L Potassium 4.8 4.7 Chloride 88 L 85 L Carbon Dioxide 20 L 22 Anion Gap 15 14 BUN 90 H 82 H Creatinine 3.72 H 3.20 H Est GFR ( Amer) 15 L 17 L Est GFR (Non-Af Amer) 12 L 14 L Glucose 139 H 230 H Calcium 11.2 H 11.1 H Triglycerides 101 Cholesterol 211.70 H LDL Cholesterol Direct 110 H VLDL Cholesterol 20.0 HDL Cholesterol 58 TSH 05/06/17 05/06/17 00:28 06:07 Troponin I < 0.012 0.013 EKG Comments: Initial EKG shows sinus rhythm without any baseline ST-T wave changes. This morning EKG shows atrial fibrillation no acute ST-T wave changes noted Impressions: Chest X-Ray 05/05/17 16:50 IMPRESSION: NO ACUTE RADIOGRAPHIC FINDING IN THE CHEST. Head CT 05/05/17 16:50 IMPRESSION: Biparietal small vessel chronic appearing white matter disease. No CT evidence of acute ischemic change, acute intracranial hemorrhage, mass effect, or midline shift. EVIDENCE OF ACUTE STROKE: NO. Renal Ultrasound 05/06/17 00:00 IMPRESSION: No hydronephrosis. Assessment & Plan - Diagnosis (1) Paroxysmal atrial fibrillation Is this a current diagnosis for this admission?: Yes (2) Chest pain Qualifiers: Chest pain type: unspecified Qualified Code(s): R07.9 - Chest pain, unspecified Is this a current diagnosis for this admission?: Yes (3) Hypertension Qualifiers: Hypertension type: essential hypertension Qualified Code(s): I10 - Essential (primary) hypertension Is this a current diagnosis for this admission?: Yes (4) CAD (coronary artery disease) Qualifiers: Coronary Disease-Associated Artery/Lesion type: [place] artery Associated angina: angina presence unspecified Is this a current diagnosis for this admission?: Yes (5) Diabetes Qualifiers: Diabetes mellitus type: type 2 Diabetes mellitus complication status: with unspecified complications Diabetes mellitus terminal makeup operator insulin use: unspecified terminal makeup operator insulin use status Qualified Code(s): E11.8 - Type 2 diabetes mellitus with unspecified complications Is this a current diagnosis for this admission?: Yes (6) Renal insufficiency Is this a current diagnosis for this admission?: Yes (7) HLD (hyperlipidemia) Qualifiers: Hyperlipidemia type: unspecified Qualified Code(s): E78.5 - Hyperlipidemia , unspecified Is this a current diagnosis for this admission?: Yes - Notes Notes: Atrial fibrillation: Paroxysmal. Patient would be a good candidate for chronic anticoagulation. Eliquis at 2.5 mg p.o. twice daily would be a satisfactory starting dose. For rate control, will start patient on metoprolol succinate 25 mg p.o. twice daily. Patient has a prior history of atrial fibrillation. Coronary artery disease: Currently stable. Since patient had presented with chest pain will schedule patient for a nuclear stress test. Diabetes: Currently under expectant management by hospitalist. Renal insufficiency: Patient being monitored closely by the hospitalist. Patient also under deputy united states marshal care. Hyperlipidemia: In view of known history of CAD, have placed patient on Lipitor 20 mg p.o. nightly. Hypertension: Blood pressure goal is 135/85 or less in this patient. 2D echo and nuclear stress test ordered. Have also adjusted patient's medication. - Time Time Spent: 30 to 50 Minutes - CODE STATUS was discussed, patient remains full code. Surrogate decision-maker patient's son. Multiple medical problems were addressed. More than 50% of the time spent coordinating care, discussing management plans with involved caregivers. Management plans discussed with involved personnels. Medical decision making was of moderate to high complexity , patient's has multiple comorbidities. Medications reviewed and adjusted accordingly: Yes
[2017-05-06 14:37] LABS: ANION GAP 16 (5-19); BLOOD UREA NITROGEN 77 mg/dL (7-20); CALCIUM 11.3 mg/dL (8.4-10.2); CARBON DIOXIDE 21 mmol/L (22-30); CHLORIDE 87 mmol/L (98-107); CREATININE RESULT 2.96 mg/dL (0.52-1.25); GLUCOSE 121 mg/dL (75-110)
--- NOTE | 2017-05-06 17:08 | PDOC PROGRESS REPORT ---
Subjective Progress Note for:: 05/06/17 Subjective:: This is a 67-year-old female Who was admitted for acute renal failure and her blood pressure was initially 60/33. Patient states she lives in [place] and is here visiting her son has been here for about a month. No family was present during my exam and initially her creatinine was 4.3 and her GFR was 13 but patient denies having a history of chronic renal disease. Also her initial sodium level was 117. Her sodium has increased to 124 today. Patient developed A. fib with RVR rate 130 in which is confirmed with EKG. Metoprolol 5 mg IV 1 was given a rate decreased to 80s. Echocardiogram was ordered and cardiology consult. Patient is pleasantly confused Physical Exam Vital Signs: Temp Pulse Resp BP Pulse Ox 97.8 F 77 19 91/54 L 100 05/06/17 10:45 05/06/17 10:45 05/06/17 10:45 05/06/17 10:45 05/06/17 10:45 Intake & Output 05/05/17 05/06/17 05/07/17 06:59 06:59 06:59 Intake Total 2061 476 Output Total 1150 550 Balance 911 -74 Weight 90 kg General appearance: PRESENT: no acute distress, cooperative Head exam: PRESENT: atraumatic, normocephalic Ear exam: PRESENT: normal external ear exam Mouth exam: PRESENT: moist, tongue midline Respiratory exam: PRESENT: clear to auscultation ricardo. ABSENT: rales, rhonchi, wheezes Cardiovascular exam: PRESENT: irregular rhythm, RRR, other - A. fib. ABSENT: diastolic murmur, rubs, systolic murmur Pulses: PRESENT: normal [place] pedis pul Vascular exam: PRESENT: normal capillary refill GI/Abdominal exam: PRESENT: normal bowel sounds, soft. ABSENT: distended, guarding, mass, organolmegaly, rebound, tenderness Rectal exam: PRESENT: deferred Extremities exam: PRESENT: +1 edema Neurological exam: PRESENT: alert, altered, awake, oriented to person, oriented to time, CN II-XII grossly intact. ABSENT: oriented to place, oriented to situation, motor sensory deficit Psychiatric exam: PRESENT: appropriate affect, normal mood. ABSENT: homicidal ideation, suicidal ideation Skin exam: PRESENT: dry, intact, warm. ABSENT: cyanosis, rash Results Laboratory Results: 05/06/17 06:07 05/06/17 14:01 05/05/17 05/06/17 05/06/17 22:05 02:16 02:16 WBC RBC Hgb Hct MCV MCH MCHC RDW Plt Count Seg Neutrophils % Lymphocytes % Monocytes % Eosinophils % Basophils % Absolute Neutrophils Absolute Lymphocytes Absolute Monocytes Absolute Eosinophils Absolute Basophils Sodium 121.1 L 121.3 L Potassium 4.6 4.9 Chloride 85 L 88 L Carbon Dioxide 21 L 21 L Anion Gap 15 12 BUN 95 H 94 H Creatinine 4.17 H 4.08 H Est GFR ( Amer) 13 L 13 L Est GFR (Non-Af Amer) 11 L 11 L Glucose 133 H 177 H Calcium 10.7 H 10.8 H Triglycerides Cholesterol LDL Cholesterol Direct VLDL Cholesterol HDL Cholesterol TSH 0.89 05/06/17 05/06/17 05/06/17 06:07 06:07 10:11 WBC 4.8 RBC 4.01 Hgb 10.2 L Hct 30.4 L MCV 76 L MCH 25.4 L MCHC 33.6 RDW 14.0 Plt Count 283 Seg Neutrophils % 75.6 Lymphocytes % 15.3 Monocytes % 7.4 Eosinophils % 1.2 Basophils % 0.5 Absolute Neutrophils 3.6 Absolute Lymphocytes 0.7 Absolute Monocytes 0.4 Absolute Eosinophils 0.1 Absolute Basophils 0.0 Sodium 123.1 L 121.2 L Potassium 4.8 4.7 Chloride 88 L 85 L Carbon Dioxide 20 L 22 Anion Gap 15 14 BUN 90 H 82 H Creatinine 3.72 H 3.20 H Est GFR ( Amer) 15 L 17 L Est GFR (Non-Af Amer) 12 L 14 L Glucose 139 H 230 H Calcium 11.2 H 11.1 H Triglycerides 101 Cholesterol 211.70 H LDL Cholesterol Direct 110 H VLDL Cholesterol 20.0 HDL Cholesterol 58 TSH 05/06/17 14:01 WBC RBC Hgb Hct MCV MCH MCHC RDW Plt Count Seg Neutrophils % Lymphocytes % Monocytes % Eosinophils % Basophils % Absolute Neutrophils Absolute Lymphocytes Absolute Monocytes Absolute Eosinophils Absolute Basophils Sodium 124.0 L Potassium 5.0 Chloride 87 L Carbon Dioxide 21 L Anion Gap 16 BUN 77 H Creatinine 2.96 H Est GFR ( Amer) 19 L Est GFR (Non-Af Amer) 16 L Glucose 121 H Calcium 11.3 H Triglycerides Cholesterol LDL Cholesterol Direct VLDL Cholesterol HDL Cholesterol TSH 05/06/17 05/06/17 00:28 06:07 Troponin I < 0.012 0.013 Impressions: Chest X-Ray 05/05/17 16:50 IMPRESSION: NO ACUTE RADIOGRAPHIC FINDING IN THE CHEST. Head CT 05/05/17 16:50 IMPRESSION: Biparietal small vessel chronic appearing white matter disease. No CT evidence of acute ischemic change, acute intracranial hemorrhage, mass effect, or midline shift. EVIDENCE OF ACUTE STROKE: NO. Renal Ultrasound 05/06/17 00:00 IMPRESSION: No hydronephrosis. Assessment & Plan - Diagnosis (1) Hypertension Qualifiers: Hypertension type: essential hypertension Qualified Code(s): I10 - Essential (primary) hypertension Is this a current diagnosis for this admission?: Yes Plan: Patient has a history of hypertension currently on several antihypertensive medications but she came in hypotensive blood pressure 60s over 30s will hold her CYNTHIA inhibitors at this time due to her acute renal failure. Also hold her diuretics (2) Acute renal failure Qualifiers: Acute renal failure type: unspecified Qualified Code(s): N17.9 - Acute kidney failure, unspecified Is this a current diagnosis for this admission?: Yes Plan: On admission patient had a sodium of 121, creatinine 4.17, GFR 13, calcium was 10.7, she denies having any issues with her kidneys states she was never told she had chronic kidney disease. She has been on Lasix and diuretics and high blood pressure medications for about 5 years. Also patient denies having any dementia she is currently on dementia medications and has been inconsistent with some of her history I suspect she has acute on chronic renal failure (3) CAD (coronary artery disease) Qualifiers: Coronary Disease-Associated Artery/Lesion type: [place] artery [place] vs. transplanted heart: unspecified whether [place] or transplanted heart Associated angina: angina presence unspecified Qualified Code(s): I25.10 - Atherosclerotic heart disease of [place] coronary artery without angina pectoris Is this a current diagnosis for this admission?: Yes Plan: Patient has past medical history of coronary artery disease with stent placement (4) Chest pain Qualifiers: Chest pain type: unspecified Qualified Code(s): R07.9 - Chest pain, unspecified Is this a current diagnosis for this admission?: Yes (5) Diabetes Qualifiers: Diabetes mellitus type: type 2 Diabetes mellitus complication status: with kidney complications Diabetes mellitus complication detail: with chronic kidney disease Diabetes mellitus terminal block assembler insulin use: unspecified fci insulin use status Chronic kidney disease stage: unspecified stage Qualified Code(s): E11.22 - Type 2 diabetes mellitus with diabetic chronic kidney disease Plan: We will check a hemoglobin A1c in the morning. Patient is unknown glucose and has sliding scale insulin ordered. (6) Hyponatremia Is this a current diagnosis for this admission?: Yes Plan: Initially sodium was 117 on admission. Recheck sodium is increased to 124. Continue to monitor and follow. Will hold her diuretics at this time to help improve her sodium levels (7) Paroxysmal atrial fibrillation Plan: Patient has past medical history of A. fib and she currently is had a episode of A. fib with RVR heart rate was sustained at 130 and confirmed via EKG. currently patient is not on any anticoagulation. And her home medications beta- blockers were not given today. She was given approximately 3 L of IV fluids in the ER. Cardiology consult was obtained and appreciated. And Eliquis 2.5 mg twice daily will be initiated for chronic anticoagulation for A. fib. We will also obtain an echocardiogram and a nuclear stress test. (8) Stented coronary artery Is this a current diagnosis for this admission?: Yes - Time Time Spent with patient: 25-34 minutes Medications reviewed and adjusted accordingly: Yes Anticipated discharge: Home
--- NOTE | 2017-05-06 17:36 | EKG REPORT ---
SEVERITY:- NORMAL ECG - SINUS RHYTHM : Confirmed by: Jackelyn Henry MD 06-May-2017 17:34:35
--- NOTE | 2017-05-06 17:36 | EKG REPORT ---
SEVERITY:- BORDERLINE ECG - SINUS RHYTHM TALL R WAVE IN V2, CONSIDER RVH OR PMI : Confirmed by: Jackelyn Henry MD 06-May-2017 17:34:39
--- NOTE | 2017-05-06 17:36 | EKG REPORT ---
SEVERITY:- ABNORMAL ECG - ATRIAL FIBRILLATION, V-RATE 82-125 : Confirmed by: Jackelyn Henry MD 06-May-2017 17:34:30
[2017-05-06] MEDS ORDERED: FUROSEMIDE 40 MG TABLET PO SCH (18:00)
[2017-05-06 19:13] LABS: ANION GAP 12 (5-19); BLOOD UREA NITROGEN 75 mg/dL (7-20); CALCIUM 11.1 mg/dL (8.4-10.2); CARBON DIOXIDE 23 mmol/L (22-30); CHLORIDE 87 mmol/L (98-107); CREATININE RESULT 2.87 mg/dL (0.52-1.25); GLUCOSE 147 mg/dL (75-110); POTASSIUM 4.8 mmol/L (3.6-5.0)
[2017-05-06] MEDS: INSULIN GLARGINE,HUM.REC.ANLOG 300 UNIT/3 ML INSULN.PEN SUBCUT SCH (21:32)
[2017-05-06] MEDS: ATORVASTATIN CALCIUM 10 MG TABLET PO SCH (21:32)
[2017-05-06] MEDS: RISPERIDONE 1 MG TABLET PO SCH (21:33)
[2017-05-06] MEDS ORDERED: (PENDING PHARMACY ID) (Spironolactone [Aldactone] 50 MG) PO SCH (22:00)
[2017-05-06] MEDS ORDERED: METOPROLOL SUCCINATE 25 MG TAB.SR.24H PO SCH ×2 (22:00→23:00)
[2017-05-06] MEDS ORDERED: SPIRONOLACTONE 25 MG TABLET PO SCH (22:00)
[2017-05-06] MEDS ORDERED: (PENDING PHARMACY ID) (Risperidone [Risperdal] 2 MG) PO SCH (22:00)
[2017-05-07] MEDS ORDERED: NORMAL SALINE 1000 ML 500 ML IV ONE (00:29)
[2017-05-07 05:51] LABS: HEMATOCRIT 29.8 % (36.0-47.0); HEMOGLOBIN 9.8 g/dL (12.0-15.5); HGB HCT DIFFERENCE -0.4; MEAN CORPUSCULAR HGB CONC 32.8 g/dL (32.0-36.0); MEAN CORPUSCULAR VOLUME 76 fl (80-97); RED BLOOD COUNT 3.92 10^6/uL (3.72-5.28); RED CELL DISTRIBUTION WIDTH 13.9 % (11.5-14.0); WHITE BLOOD COUNT 3.6 10^3/uL (4.0-10.5)
[2017-05-07 06:12] LABS: ALANINE AMINOTRANSFERASE 34 U/L (9-52); ALBUMIN 3.4 g/dL (3.5-5.0); ALKALINE PHOSPHATASE 82 U/L (38-126); ANION GAP 11 (5-19); ASPARTATE AMINO TRANSFERASE 30 U/L (14-36); BILIRUBIN,DIRECT 0.3 mg/dL (0.0-0.4); BILIRUBIN,TOTAL 0.3 mg/dL (0.2-1.3); BLOOD UREA NITROGEN 67 mg/dL (7-20); CALCIUM 10.7 mg/dL (8.4-10.2); CARBON DIOXIDE 21 mmol/L (22-30); CHLORIDE 94 mmol/L (98-107); CREATININE RESULT 2.44 mg/dL (0.52-1.25); GLUCOSE 70 mg/dL (75-110); MAGNESIUM 1.4 mg/dL (1.6-2.3); POTASSIUM 4.8 mmol/L (3.6-5.0); SODIUM 125.9 mmol/L (137-145)
[2017-05-07] MEDS: INSULIN GLARGINE,HUM.REC.ANLOG 300 UNIT/3 ML INSULN.PEN SUBCUT SCH ×2 (09:11→21:24)
[2017-05-07] MEDS: HEPARIN SOD (PORCINE) 5,000 UNIT/ML 1 ML SYRINGE SUBCUT SCH (09:14)
[2017-05-07] MEDS ORDERED: METOPROLOL TARTRATE PF/INJ 5 MG/5 ML SDV IV ONE (09:35)
[2017-05-07] MEDS ORDERED: (PENDING PHARMACY ID) (Omega-3 Fatty Acids [Omega-3] 1,000 MG) PO SCH (10:00)
[2017-05-07] MEDS ORDERED: SERTRALINE HCL 50 MG TABLET PO SCH (10:00)
[2017-05-07] MEDS ORDERED: OMEGA-3 ACID ETHYL ESTERS 1 GM CAPSULE PO SCH (10:00)
[2017-05-07] MEDS ORDERED: LISINOPRIL 10 MG TABLET PO SCH (10:00)
[2017-05-07] MEDS ORDERED: CHLORTHALIDONE 50 MG PO SCH (10:00)
[2017-05-07] MEDS ORDERED: METOPROLOL SUCCINATE 25 MG TAB.SR.24H PO SCH (10:00)
[2017-05-07] MEDS ORDERED: DONEPEZIL HCL 5 MG TABLET PO SCH (10:00)
[2017-05-07] MEDS ORDERED: FERROUS SULFATE 325 MG TABLET PO SCH (10:00)
[2017-05-07] MEDS ORDERED: METOPROLOL TARTRATE 25 MG TABLET PO SCH (10:00)
[2017-05-07] MEDS ORDERED: (PENDING PHARMACY ID) (Lisinopril [Prinivil] 20 MG) PO SCH (10:00)
[2017-05-07] MEDS ORDERED: LANSOPRAZOLE 30 MG TAB.RAP.DR PO SCH (10:00)
[2017-05-07] MEDS ORDERED: CHLORTHALIDONE 25 MG TABLET PO SCH (10:00)
--- NOTE | 2017-05-07 10:20 | Physician Advisory Note ---
Physician Advisor ProgressNote .: Pursuant to the plan for [facility], I have reviewed the medical record for this patient. Physician Advisor Statement: Please consider documenting, if you agree: 1. "Acute metabolic acidosis due to ARF" 2. "Acute hyponatremia, suspect due to " [intravascular volume depletion from diuretic tx?] Thanks! CK
--- NOTE | 2017-05-07 11:08 | PDOC PROGRESS REPORT ---
Subjective Progress Note for:: 05/07/17 Subjective:: Patient seems to be doing better with gradual improvement. Pt is denying any chest arm or neck discomfort. Patient denying any PND, orthopnea. Patient denied any sustained palpitations, dizziness, syncope, near syncope. Patient denying any fever chills. Patient denying any other significant discomfort. Patient is maintaining atrial fibrillation. Review of systems: Rest review of systems negative. Medications: Medications have been reviewed. Physical Exam Vital Signs: Temp Pulse Resp BP Pulse Ox 98 F 87 18 95/62 L 100 05/07/17 03:10 05/07/17 02:00 05/07/17 03:07 05/07/17 08:46 05/07/17 08:16 Intake & Output 05/06/17 05/07/17 05/08/17 06:59 06:59 06:59 Intake Total 1 2000 Output Total 1150 1050 Balance 911 951 Weight 90 kg 89.6 kg Exam: GENERAL: well-nourished and in no acute distress. Alert and oriented x3 HEAD: Atraumatic, normocephalic. EYES: Pupils equal round and reactive to light, extraocular movements intact, sclera anicteric, conjunctiva are normal. ENT: TMs normal, nares patent, oropharynx clear without exudates. Moist mucous membranes. No oral ulcerations or bleeding gums noted NECK: supple without lymphadenopathy. Trachea is central. No cervical or axillary lymphadenopathy noted. Carotids are 2+, JVD WNL LUNGS: Respiration seems nonlabored, no significant accessory muscle action noted. Breath sounds clear to auscultation bilaterally and equal noted. No wheezes rales or rhonchi noted. No significant dullness noted on percussion. CHEST: Palpation of the chest wall shows no significant chest wall tenderness. No other significant abnormalities noted. HEART: [place] [employer]IST, No PSH, 1/6 KAIT aortic area, 1/6 rust systolic murmur mitral area, no rubs, no gallops. ABDOMEN: Soft, no significant tenderness appreciated, normoactive bowel sounds. No guarding, no rebound. No rigidity noted . No masses appreciated. EXTREMITIES: Pedal pulses are 1-2+, no calf tenderness noted. No clubbing or cyanosis.trace pedal edema noted NEUROLOGICAL: Focused neurological exam showed no significant neurologic deficit. Normal speech, no focal weakness appreciated. PSYCH: Normal mood, normal affect. Judgment and insight within normal limits. SKIN: No significant ecchymosis, rash, ulcerations or signs of pruritus noted. MUSCULOSKELETAL EXAM: No significant joint swelling noted. Results Laboratory Results: 05/07/17 05:08 05/07/17 05:08 05/06/17 05/06/17 05/06/17 06:07 10:11 14:01 WBC RBC Hgb Hct MCV MCH MCHC RDW Plt Count Sodium 121.2 L 124.0 L Potassium 4.7 5.0 Chloride 85 L 87 L Carbon Dioxide 22 21 L Anion Gap 14 16 BUN 82 H 77 H Creatinine 3.20 H 2.96 H Est GFR ( Amer) 17 L 19 L Est GFR (Non-Af Amer) 14 L 16 L Glucose 230 H 121 H Calcium 11.1 H 11.3 H Magnesium Total Bilirubin AST ALT Alkaline Phosphatase Total Protein Albumin PTH Intact 228 H 05/06/17 05/07/17 05/07/17 18:44 05:08 05:08 WBC 3.6 L RBC 3.92 Hgb 9.8 L Hct 29.8 L MCV 76 L MCH 25.0 L MCHC 32.8 RDW 13.9 Plt Count 281 Sodium 122.0 L 125.9 L Potassium 4.8 4.8 Chloride 87 L 94 L Carbon Dioxide 23 21 L Anion Gap 12 11 BUN 75 H 67 H Creatinine 2.87 H 2.44 H Est GFR ( Amer) 20 L 24 L Est GFR (Non-Af Amer) 16 L 20 L Glucose 147 H 70 L Calcium 11.1 H 10.7 H Magnesium 1.4 L Total Bilirubin 0.3 AST 30 ALT 34 Alkaline Phosphatase 82 Total Protein 6.0 L Albumin 3.4 L PTH Intact 05/06/17 05/06/17 00:28 06:07 Troponin I < 0.012 0.013 EKG Comments: Telemetry strips shows sustained atrial fibrillation over last 24 hours but heart rate intermittently high Impressions: Chest X-Ray 05/05/17 16:50 IMPRESSION: NO ACUTE RADIOGRAPHIC FINDING IN THE CHEST. Head CT 05/05/17 16:50 IMPRESSION: Biparietal small vessel chronic appearing white matter disease. No CT evidence of acute ischemic change, acute intracranial hemorrhage, mass effect, or midline shift. EVIDENCE OF ACUTE STROKE: NO. Renal Ultrasound 05/06/17 00:00 IMPRESSION: No hydronephrosis. Assessment & Plan - Diagnosis (1) Paroxysmal atrial fibrillation Is this a current diagnosis for this admission?: Yes (2) Chest pain Qualifiers: Chest pain type: unspecified Qualified Code(s): R07.9 - Chest pain, unspecified Is this a current diagnosis for this admission?: Yes (3) Hypertension Qualifiers: Hypertension type: essential hypertension Qualified Code(s): I10 - Essential (primary) hypertension Is this a current diagnosis for this admission?: Yes (4) CAD (coronary artery disease) Qualifiers: Coronary Disease-Associated Artery/Lesion type: [place] artery [place] vs. transplanted heart: unspecified whether ambler or transplanted heart Associated angina: angina presence unspecified Qualified Code(s): I25.10 - Atherosclerotic heart disease of [place] coronary artery without angina pectoris Is this a current diagnosis for this admission?: Yes (5) Diabetes Qualifiers: Diabetes mellitus type: type 2 Diabetes mellitus complication status: with kidney complications Diabetes mellitus complication detail: with chronic kidney disease Diabetes mellitus intermediate designer insulin use: unspecified detention insulin use status Chronic kidney disease stage: unspecified stage Qualified Code(s): E11.22 - Type 2 diabetes mellitus with diabetic chronic kidney disease Is this a current diagnosis for this admission?: Yes (6) Renal insufficiency Is this a current diagnosis for this admission?: Yes (7) HLD (hyperlipidemia) Qualifiers: Hyperlipidemia type: unspecified Qualified Code(s): E78.5 - Hyperlipidemia , unspecified Is this a current diagnosis for this admission?: Yes - Notes Notes: Metoprolol succinate was held last night because of concern about low blood pressure. Ordered IV Lopressor 5 mg 1 dose and start back on metoprolol succinate. Started patient on Eliquis, discontinued heparin. Atrial fibrillation: Patient would be a good candidate for chronic anticoagulation. Eliquis at 2.5 mg p.o. twice daily would be a satisfactory starting dose. For rate control, will start patient on metoprolol succinate 25 mg p.o. twice daily. Patient has a prior history of atrial fibrillation. Coronary artery disease: Currently stable. Patient today underwent a nuclear stress test currently results are pending. Diabetes: Currently under expert management by hospitalist. Renal insufficiency: Patient being monitored closely by the hospitalist. 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 Hyperlipidemia: In view of known history of CAD, continue patient on Lipitor 20 mg p.o. nightly. Hypertension: Blood pressure goal is 135/85 or less in this patient. 2D echo and nuclear stress test ordered.. We this will be completed today. Have also adjusted patient's medication. Addendum patient was seen again in the evening. Stress test results were reviewed. 2D echo results reviewed. In addition patient was noted to be transiently hypotensive with blood pressure reported at 88 mmHg but completely asymptomatic. At this point will recommend aggressive risk factor modification and medical management. Will add Ranexa to the regimen. It might help with diastolic dysfunction and atrial fibrillation. - Time Time with patient: Greater than 35 minutes - CODE STATUS was discussed, patient remains full code. Surrogate decision-maker unchanged. Multiple medical problems were addressed. More than 50% of the time spent coordinating care, discussing management plans with involved caregivers. Management plans discussed with involved personnels. Medical decision making was of moderate to high complexity, patient's has multiple comorbidities. Medications reviewed and adjusted accordingly: Yes
--- NOTE | 2017-05-07 12:32 | PDOC PROGRESS REPORT ---
Subjective Progress Note for:: 05/07/17 Subjective:: This is a 67-year-old female Who was admitted for acute renal failure and her blood pressure was initially 60/33. Patient states she lives in [place] and is here visiting her son has been here for about a month. No family was present during my exam and initially her creatinine was 4.3 and her GFR was 13 but patient denies having a history of chronic renal disease. Also her initial sodium level was 117. Her sodium has increased to 124 today. Patient developed A. fib with RVR rate 130 in which is confirmed with EKG. Metoprolol 5 mg IV 1 was given a rate decreased to 80s. Echocardiogram was ordered and cardiology consult. 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 Again today patient A. fib with RVR and some p.o. metoprolol was reordered and was given. Echocardiogram ordered and cardiology consult and input appreciated. Patient's sodium level has increased to 125.9, creatinine is decreased to 2.44 with a GFR of 21. Physical Exam Vital Signs: Temp Pulse Resp BP Pulse Ox 98 F 60 18 111/75 100 05/07/17 03:10 05/07/17 07:00 05/07/17 03:07 05/07/17 09:01 05/07/17 08:16 Intake & Output 05/06/17 05/07/17 05/08/17 06:59 06:59 06:59 Intake Total 2061 2000 Output Total 1150 1050 Balance 911 951 Weight 90 kg 89.6 kg General appearance: PRESENT: no acute distress, well-developed, well-nourished Head exam: PRESENT: atraumatic, normocephalic Eye exam: PRESENT: conjunctiva pink, EOMI, PERRLA. ABSENT: scleral icterus Ear exam: PRESENT: normal external ear exam Mouth exam: PRESENT: moist, tongue midline Neck exam: ABSENT: carotid bruit, JVD, lymphadenopathy, thyromegaly Respiratory exam: PRESENT: clear to auscultation ricardo. ABSENT: rales, rhonchi, wheezes Cardiovascular exam: PRESENT: RRR. ABSENT: diastolic murmur, rubs, systolic murmur Pulses: PRESENT: normal dorsalis pedis pul Vascular exam: PRESENT: normal capillary refill GI/Abdominal exam: PRESENT: normal bowel sounds, soft. ABSENT: distended, guarding, mass, organolmegaly, rebound, tenderness Rectal exam: PRESENT: deferred Extremities exam: PRESENT: full ROM. ABSENT: calf tenderness, clubbing, pedal edema Neurological exam: PRESENT: alert, awake, oriented to person, oriented to place , oriented to time, oriented to situation, CN II-XII grossly intact. ABSENT: motor sensory deficit Psychiatric exam: PRESENT: appropriate affect, normal mood. ABSENT: homicidal ideation, suicidal ideation Skin exam: PRESENT: dry, intact, warm. ABSENT: cyanosis, rash Results Laboratory Results: 05/07/17 05:08 05/07/17 05:08 05/06/17 05/06/17 05/06/17 06:07 14:01 18:44 WBC RBC Hgb Hct MCV MCH MCHC RDW Plt Count Sodium 124.0 L 122.0 L Potassium 5.0 4.8 Chloride 87 L 87 L Carbon Dioxide 21 L 23 Anion Gap 16 12 BUN 77 H 75 H Creatinine 2.96 H 2.87 H Est GFR ( Amer) 19 L 20 L Est GFR (Non-Af Amer) 16 L 16 L Glucose 121 H 147 H Calcium 11.3 H 11.1 H Magnesium Total Bilirubin AST ALT Alkaline Phosphatase Total Protein Albumin PTH Intact 228 H 05/07/17 05/07/17 05:08 05:08 WBC 3.6 L RBC 3.92 Hgb 9.8 L Hct 29.8 L MCV 76 L MCH 25.0 L MCHC 32.8 RDW 13.9 Plt Count 281 Sodium 125.9 L Potassium 4.8 Chloride 94 L Carbon Dioxide 21 L Anion Gap 11 BUN 67 H Creatinine 2.44 H Est GFR ( Amer) 24 L Est GFR (Non-Af Amer) 20 L Glucose 70 L Calcium 10.7 H Magnesium 1.4 L Total Bilirubin 0.3 AST 30 ALT 34 Alkaline Phosphatase 82 Total Protein 6.0 L Albumin 3.4 L PTH Intact 05/06/17 05/06/17 00:28 06:07 Troponin I < 0.012 0.013 Impressions: Chest X-Ray 05/05/17 16:50 IMPRESSION: NO ACUTE RADIOGRAPHIC FINDING IN THE CHEST. Head CT 05/05/17 16:50 IMPRESSION: Biparietal small vessel chronic appearing white matter disease. No CT evidence of acute ischemic change, acute intracranial hemorrhage, mass effect, or midline shift. EVIDENCE OF ACUTE STROKE: NO. Renal Ultrasound 05/06/17 00:00 IMPRESSION: No hydronephrosis. Assessment & Plan - Diagnosis (1) Hypertension Qualifiers: Hypertension type: essential hypertension Qualified Code(s): I10 - Essential (primary) hypertension Is this a current diagnosis for this admission?: Yes (2) Acute renal failure Qualifiers: Acute renal failure type: unspecified Qualified Code(s): N17.9 - Acute kidney failure, unspecified Is this a current diagnosis for this admission?: Yes (3) CAD (coronary artery disease) Qualifiers: Coronary Disease-Associated Artery/Lesion type: [place] artery [place] vs. transplanted heart: unspecified whether [place] or transplanted heart Associated angina: angina presence unspecified Qualified Code(s): I25.10 - Atherosclerotic heart disease of [place] coronary artery without angina pectoris Is this a current diagnosis for this admission?: Yes (4) Chest pain Qualifiers: Chest pain type: unspecified Qualified Code(s): R07.9 - Chest pain, unspecified Is this a current diagnosis for this admission?: Yes (5) Diabetes Qualifiers: Diabetes mellitus type: type 2 Diabetes mellitus complication status: with kidney complications Diabetes mellitus complication detail: with chronic kidney disease Diabetes mellitus penitentiary insulin use: unspecified long term acute care registered nurse insulin use status Chronic kidney disease stage: unspecified stage Qualified Code(s): E11.22 - Type 2 diabetes mellitus with diabetic chronic kidney disease Is this a current diagnosis for this admission?: Yes (6) Hyponatremia Is this a current diagnosis for this admission?: Yes (7) Paroxysmal atrial fibrillation Is this a current diagnosis for this admission?: Yes (8) Stented coronary artery Is this a current diagnosis for this admission?: Yes
[2017-05-07] MEDS ORDERED: REGADENOSON INJ 0.4 MG/5 ML DISP.SYRIN IV ONE (12:33)
[2017-05-07] MEDS ORDERED: AMINOPHYLLINE INJ/PF 250 MG/10 ML SDV IV ONE (12:33)
--- NOTE | 2017-05-07 14:07 | DRAGON STRESS TEST REPORT ---
INTRAVENOUS LEXISCAN CARDIOLITE STRESS TEST USING SINGLE PHOTON EMMISION COMPUTERIZED TOMOGRAPHIC. DATE OF PROCEDURE: May 07, 2017 INDICATION : Chest pain CARDIAC RISK FACTORS: Diabetes, hypertension, dyslipidemia, atrial fibrillation RESTING EKG: Atrial fibrillation, no baseline ST segment changes noted. STRESS EKG: No significant changes noted with LexiScan bolus REASON FOR TERMINATION: Protocol. PROCEDURE REPORT: Baseline heart rate 72 beats per minute with blood pressure of 101/52. Patient had no significant complaints. Heart rate at 2 minutes post bolus 102 with a blood pressure of 94/55. 3 minutes post bolus heart rate 88 with blood pressure of 107/55. No significant EKG changes were noted. Patient had no significant complaints during the procedure or postprocedure. Patient injected with Aminophyllin 75 mg at 3 minutes or later after Lexiscan bolus. CONCLUSIONS: Normal EKG and hemodynamic response to IV LexiScan. NUCLEAR DATA: At rest the patient was given 13.18 millicuries of technetium 99 sestamibi injected intravenously. As per protocol rest gated SPECT images were obtained. Subsequently the patient was given intravenous LexiScan at a dose of 0.4 mg in 5 mL intravenously, followed by flush with normal saline. Subsequently the stress dose of 38.7 millicuries of technetium 99 sestamibi was injected intravenously. As per protocol stress gated images were obtained. NUCLEAR INTERPRETATION: Both raw and processed data were used for interpretation. Visual, qualitative, computer-generated quantitative data was used. There was good myocardial uptake of technetium compound. Motion artifact and soft tissue attenuations were noted. Increased visceral uptake was noted. No definitive areas of transient perfusion defect noted except for mild decreased uptake in the mid and distal anterior wall. This could be related to differences in breast attenuation artifact but cannot rule out an area of mild ischemia. No corresponding regional wall motion and modalities noted on gated imaging. No definitive areas of fixed perfusion defect or scars noted. EKG gated imaging showed LV EF at 58 %, rest and stress gated EF similar visually. T. I D. ratio was 1.27. Lung heart ratio noted to be within normal limits 0.33. No significant extracardiac and abnormal radiotracer activities were noted. RV free wall uptake was noted to be increased. IMPRESSION: Also refer to comments under nuclear interpretation. Also test results needs to be interpreted in the context of pretest probability. 1. Probable mild mid and distal small area of ischemia versus differences in breast attenuation artifact. Clinical correlation requested. There were no corresponding regional wall motion abnormalities on EKG gated imaging. 2. There is no definitive scintigraphic evidence of myocardial infarction/scar. 3. EKG gated imaging shows left ventricular ejection fraction of approximately 58 %. 4. Clinical correlation requested as occasionally single vessel disease or balanced ischemia could be missed. In approximately 10% of the cases Lexiscan may not cause adequate vasodilatory stress. RECOMMENDATIONS: Aggressive risk factor modification, medical therapy. Clinical correlation with echocardiogram derived ejection fraction. Inability to exercise by itself can lead to increased cardiovascular event risks. Consider cardiology consultation and or follow-up if clinically indicated. I AM AVAILABLE FOR CARDIOLOGY CONSULTATION AND FOLLOWUP IF REQUESTED BY PMD Ellie Osman M.D., [employer] logging tractor operator swamp, Board certified in cardiovascular diseases, Nuclear cardiology, Echocardiography Cardiac CT and cardiac MRI Ph. [phone] [facility]
--- NOTE | 2017-05-07 20:03 | XCELERA REPORT ---
[address] [address] Transthoracic Echocardiogram Report Name: RADHA HERNANDEZ Age: 67 yrs Gender: Female : 1950 Patient Status: Inpatient Patient Location: [address] [place] [address] Study Date: 05/07/2017 11:32 AM Height: 65 in Weight: 198 lb BSA: 2.0 m2 Procedure: A complete two-dimensional transthoracic echocardiogram was performed (2D, M-mode, spectral and color flow Doppler). The study was technically difficult with many images being suboptimal in quality. Reason For Study: A-fib with RVR Ordering Physician: KARISSA YOUNG Performed By: Art Irving Interpretation Summary Left ventricular systolic function is low normal. There is borderline concentric left ventricular hypertrophy. The left ventricle is grossly normal size. LV diastolic function could not be adequately assessed due to atrial fibrilation. Wall motion cannot be accurately commented on, but no definite regional wall motion abnormalities noted. The right ventricular systolic function is normal. The left atrium is mildly dilated. The right atrium is normal. There is a trace amount of mitral regurgitation There is no mitral valve stenosis. No aortic regurgitation is present. There is no aortic valve stenosis There is a mild amount of tricuspid regurgitation There is mild pulmonary hypertension by echo Right ventricular systolic pressure is estimated to be elevated at 30- 40mmHg. The aortic root is not well visualized but is probably normal size. The inferior vena cava appeared normal and decreased > 50% with respiration (RAP 5-10 mmHg) There is no pericardial effusion. MMode/2D Measurements & Calculations RVDd: 2.1 cm LVIDd: 4.0 cm FS: 22.2 % Ao root diam: 2.4 cm IVSd: 0.75 cm LVIDs: 3.1 cm EDV(Teich): 70.6 ml LVPWd: 0.81 cm ESV(Teich): 38.6 ml Ao root area: 4.6 cm2 EF(Teich): 45.4 % LA dimension: 2.7 cm Doppler Measurements & Calculations MV E max debbie: MV P1/2t max debbie: Ao V2 max: LV V1 max P.0 cm/sec 71.0 cm/sec 108.6 cm/sec 2.5 mmHg MV P1/2t: 49.1 msec Ao max PG: LV V1 max: 4.7 mmHg 78.4 cm/sec MVA(P1/2t): 4.5 cm2 MV dec slope: 423.2 cm/sec2 PA V2 max: TR max debbie: RAP systole: 72.6 cm/sec 225.2 cm/sec 10.0 mmHg PA max PG: TR max P.4 mmHg 2.1 mmHg RVSP(TR): 30.4 mmHg Left Ventricle The left ventricle is grossly normal size. There is borderline concentric left ventricular hypertrophy. Left ventricular systolic function is low normal. LV diastolic function could not be adequately assessed due to atrial fibrilation. Wall motion cannot be accurately commented on, but no definite regional wall motion abnormalities noted. Right Ventricle The right ventricle is normal in size, thickness and function. Right ventricular size has decreased since the prior echo exam. There is normal right ventricular wall thickness. The right ventricular systolic function is normal. Atria The right atrium is normal. The left atrium is mildly dilated. Interarterial septum not well visualized and not well dopplered. Cannot comment on ASD/PFO presence. Mitral Valve The mitral valve leaflets are sclerotic, but show no functional abnormalities. There is no mitral valve stenosis. There is a trace amount of mitral regurgitation. Aortic Valve The aortic valve is grossly normal. There is no aortic valve stenosis. No aortic regurgitation is present. Tricuspid Valve The tricuspid valve is not well visualized, but is grossly normal. There is no tricuspid stenosis. There is a mild amount of tricuspid regurgitation. There is mild pulmonary hypertension by echo. Right ventricular systolic pressure is estimated to be elevated at 30-40mmHg. Pulmonic Valve The pulmonic valve is not well visualized. Great Vessels The aortic root is not well visualized but is probably normal size. The inferior vena cava appeared normal and decreased > 50% with respiration (RAP 5-10 mmHg). Effusions There is no pericardial effusion. : KARISSA YOUNG > Ellie Osman
[2017-05-07] MEDS: ATORVASTATIN CALCIUM 10 MG TABLET PO SCH (21:24)
[2017-05-07] MEDS: RISPERIDONE 1 MG TABLET PO SCH (21:25)
[2017-05-08] MEDS ORDERED: METOPROLOL TARTRATE PF/INJ 5 MG/5 ML SDV IV ONE (02:48)
[2017-05-08] MEDS ORDERED: NORMAL SALINE 1000 ML 500 ML IV ONE (02:48)
[2017-05-08] MEDS ORDERED: NORMAL SALINE 1000 ML 1,000 ML IV PRN ×3 (02:59→08:22)
[2017-05-08] MEDS: MAGNESIUM SULFATE/D5W 1 GM/100 ML RTUPB IV SCH ×2 (03:27→05:00)
[2017-05-08 03:47] LABS: CREATINE KINASE MB 1.38 ng/mL (<4.55)
[2017-05-08 03:48] LABS: TROPONIN I < 0.012 ng/mL
[2017-05-08] MEDS ORDERED: NORMAL SALINE 1000 ML 2,000 ML IV ONE (06:20)
[2017-05-08] MEDS ORDERED: DEXTROSE 5%-WATER 250 ML with PHENYLEPHRINE HCL 40 MG IV PRN ×4 (06:21→09:08)
[2017-05-08 07:02] LABS: APPEARANCE,URINE CLEAR; BILIRUBIN,URINE NEGATIVE (NEGATIVE); GLUCOSE, URINE NEGATIVE (NEGATIVE); KETONES,URINE NEGATIVE (NEGATIVE); LEUKOCYTE ESTERASE,URINE NEGATIVE (NEGATIVE); NITRITE,URINE NEGATIVE (NEGATIVE); PROTEIN,URINE NEGATIVE (NEGATIVE); URINE SPECIFIC GRAVITY 1.003; UROBILINOGEN,URINE NEGATIVE mg/dL (<2.0)
[2017-05-08 07:26] LABS: FREE T3 3.85 pg/mL (2.77-5.27)
--- NOTE | 2017-05-08 07:58 | RADIOLOGY REPORT (SQ) ---
EXAM DESCRIPTION: CHEST SINGLE VIEW COMPLETED DATE/TIME: 05/08/2017 7:47 am REASON FOR STUDY: Shortness of breath, cough. COMPARISON: Chest x-ray 05/05/2017. EXAM PARAMETERS: NUMBER OF VIEWS: One view. TECHNIQUE: Single frontal radiographic view of the chest acquired. RADIATION DOSE: NA LIMITATIONS: None. FINDINGS: LUNGS AND PLEURA: No consolidation, pneumothorax or pleural effusion. MEDIASTINUM AND HILAR STRUCTURES: No masses. Contour normal. HEART AND VASCULAR STRUCTURES: Heart normal in size. Normal vasculature. BONES: No acute findings. HARDWARE: None in the chest. IMPRESSION: No acute radiographic finding in the chest. TECHNICAL DOCUMENTATION: JOB ID: [id number]
[2017-05-08 09:03] LABS: ABSOLUTE EOSINOPHILS # (AUTO) 0.1 10^3/uL (0.0-0.6); ABSOLUTE LYMPHOCYTES (AUTO) 1.2 10^3/uL (0.5-4.7); ABSOLUTE MONOCYTES (AUTO) 0.3 10^3/uL (0.1-1.4); ABSOLUTE NEUT (AUTO) 2.5 10^3/uL (1.7-8.2); BASOPHILS % (AUTO) 0.7 % (0-2); HEMOGLOBIN 11.1 g/dL (12.0-15.5); HGB HCT DIFFERENCE -0.7; LYMPHOCYTES % (AUTO) 29.1 % (13-45); MEAN CORPUSCULAR HEMOGLOBIN 25.1 pg (27.0-33.4); MEAN CORPUSCULAR HGB CONC 32.6 g/dL (32.0-36.0); MEAN CORPUSCULAR VOLUME 77 fl (80-97); MONOCYTES % (AUTO) 7.9 % (3-13); RED BLOOD COUNT 4.43 10^6/uL (3.72-5.28); RED CELL DISTRIBUTION WIDTH 14.3 % (11.5-14.0); SEGMENTED NEUTROPHILS % (AUTO) 60.3 % (42-78); WHITE BLOOD COUNT 4.1 10^3/uL (4.0-10.5)
[2017-05-08 09:24] LABS: ALANINE AMINOTRANSFERASE 36 U/L (9-52); ALBUMIN 3.6 g/dL (3.5-5.0); ALKALINE PHOSPHATASE 95 U/L (38-126); ANION GAP 12 (5-19); ASPARTATE AMINO TRANSFERASE 24 U/L (14-36); BILIRUBIN,DIRECT 0.3 mg/dL (0.0-0.4); BILIRUBIN,TOTAL 0.3 mg/dL (0.2-1.3); BLOOD UREA NITROGEN 50 mg/dL (7-20); CALCIUM 10.6 mg/dL (8.4-10.2); CARBON DIOXIDE 20 mmol/L (22-30); CHLORIDE 100 mmol/L (98-107); CREATINE KINASE 125 U/L (30-135); CREATININE RESULT 2.05 mg/dL (0.52-1.25); GLUCOSE 69 mg/dL (75-110); MAGNESIUM 1.9 mg/dL (1.6-2.3); POTASSIUM 4.6 mmol/L (3.6-5.0); SODIUM 131.6 mmol/L (137-145); TOTAL PROTEIN 6.5 g/dL (6.3-8.2)
[2017-05-08 09:36] LABS: CREATINE KINASE MB 1.39 ng/mL (<4.55)
[2017-05-08 09:43] LABS: TROPONIN I < 0.012 ng/mL
[2017-05-08] MEDS ORDERED: INSULIN GLARGINE,HUM.REC.ANLOG 300 UNIT/3 ML INSULN.PEN SUBCUT SCH (10:00)
[2017-05-08] MEDS ORDERED: METOPROLOL TARTRATE 25 MG TABLET PO SCH ×2 (10:00→22:00)
[2017-05-08] MEDS ORDERED: ACETAMINOPHEN 325 MG TABLET PO PRN (10:32)
[2017-05-08] MEDS ORDERED: DEXTROSE 50%-WATER 25 GM/50 ML DISP.SYRIN IV PRN ×2 (10:34→10:38)
[2017-05-08] MEDS ORDERED: DEXTROSE 40% GEL 15 GM TUBE PO PRN ×3 (10:39→10:40)
[2017-05-08] MEDS ORDERED: GLUCAGON,HUMAN RECOMB 1 MG INJ IM PRN (10:41)
[2017-05-08] MEDS ORDERED: INSULIN REG, HUMAN 100 UNIT/ML 3 ML VIAL (PYX) SUBCUT PRN (10:43)
[2017-05-08] MEDS ORDERED: ATORVASTATIN CALCIUM 10 MG TABLET PO SCH (10:45)
[2017-05-08] MEDS ORDERED: METHOCARBAMOL 500 MG TABLET PO PRN (10:45)
[2017-05-08] MEDS: HEPARIN SOD (PORCINE) 1,000 UNIT/ML 10 ML VIAL IV PRN (10:52)
[2017-05-08] MEDS ORDERED: DONEPEZIL HCL 5 MG TABLET PO ONE (12:00)
--- NOTE | 2017-05-08 12:23 | EKG REPORT ---
SEVERITY:- ABNORMAL ECG - ATRIAL FLUTTER, A-RATE 333 PAIRED VENTRICULAR PREMATURE COMPLEXES BORDERLINE T ABNORMALITIES, INFERIOR LEADS : Confirmed by: Jackelyn Henry MD 08-May-2017 12:22:43
[2017-05-08] MEDS ORDERED: METOPROLOL TARTRATE 25 MG TABLET PO ONE (13:00)
[2017-05-08] MEDS ORDERED: SERTRALINE HCL 50 MG TABLET PO ONE (13:00)
[2017-05-08] MEDS ORDERED: INSULIN GLARGINE,HUM.REC.ANLOG 300 UNIT/3 ML INSULN.PEN SUBCUT ONE (13:00)
[2017-05-08] MEDS ORDERED: FERROUS SULFATE 325 MG TABLET PO ONE (13:00)
[2017-05-08] MEDS ORDERED: OMEGA-3 ACID ETHYL ESTERS 1 GM CAPSULE PO ONE (13:00)
--- NOTE | 2017-05-08 16:57 | PDOC PROGRESS REPORT ---
Subjective Progress Note for:: 05/08/17 Subjective:: This is a 67-year-old female Who was admitted for acute renal failure and her blood pressure was initially 60/33. Patient states she lives in [place] and is here visiting her son has been here for about a month. No family was present during my exam and initially her creatinine was 4.3 and her GFR was 13 but patient denies having a history of chronic renal disease. Also her initial sodium level was 117. Her sodium has increased to 124 today. Patient developed A. fib with RVR rate 130 in which is confirmed with EKG. Metoprolol 5 mg IV 1 was given a rate decreased to 80s. Echocardiogram was ordered and cardiology consult. 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 Again today patient A. fib with RVR and some p.o. metoprolol was reordered and was given. Echocardiogram ordered and cardiology consult and input appreciated. Patient's sodium level has increased to 125.9, creatinine is decreased to 2.44 with a GFR of 21. 05/08 Last night she had another episode of bradycardia. She was transferred to ICU was given a bolus of normal saline. Blood pressure came up to 120s over 60s. She was ordered cultures for possible underlying infection which I personally do not feel that her issue. She continues to be in A. fib but her rate is controlled at the moment. Lab work was obtained. And discussion with family present with both myself and Dr. Whelan. We will transfer her to MICU, start heparin drip for A. fib per protocol with the plan of transitioning her to a another oral anticoagulant once her renal function normalizes. It is improving. Continue to monitor renal function Physical Exam Vital Signs: Temp Pulse Resp BP Pulse Ox 97.7 F 80 20 120/56 L 98 05/08/17 08:00 05/08/17 08:00 05/08/17 08:00 05/08/17 09:29 05/08/17 08:00 Intake & Output 05/07/17 05/08/17 05/09/17 06:59 06:59 06:59 Intake Total 2000 2716 Output Total 1050 850 Balance 951 1867 Weight 89.6 kg 90.1 kg General appearance: PRESENT: no acute distress, well-developed, well-nourished Head exam: PRESENT: atraumatic, normocephalic Eye exam: PRESENT: conjunctiva pink, EOMI, PERRLA. ABSENT: scleral icterus Ear exam: PRESENT: normal external ear exam Mouth exam: PRESENT: moist, tongue midline Neck exam: ABSENT: carotid bruit, JVD, lymphadenopathy, thyromegaly Respiratory exam: PRESENT: clear to auscultation ricardo. ABSENT: rales, rhonchi, wheezes Cardiovascular exam: PRESENT: RRR. ABSENT: diastolic murmur, rubs, systolic murmur Pulses: PRESENT: normal dorsalis pedis pul Vascular exam: PRESENT: normal capillary refill GI/Abdominal exam: PRESENT: normal bowel sounds, soft. ABSENT: distended, guarding, mass, organolmegaly, rebound, tenderness Rectal exam: PRESENT: deferred Extremities exam: PRESENT: full ROM, +1 edema. ABSENT: calf tenderness, clubbing, pedal edema Musculoskeletal exam: PRESENT: ambulatory Neurological exam: PRESENT: alert, awake, oriented to person, oriented to time, oriented to situation, CN II-XII grossly intact, other - has some baseline dementia. ABSENT: oriented to place, motor sensory deficit Psychiatric exam: PRESENT: appropriate affect, normal mood. ABSENT: homicidal ideation, suicidal ideation Skin exam: PRESENT: dry, intact, warm. ABSENT: cyanosis, rash Results Laboratory Results: 05/08/17 08:42 05/08/17 08:42 05/06/17 05/08/17 05/08/17 06:07 06:25 06:30 WBC RBC Hgb Hct MCV MCH MCHC RDW Plt Count Seg Neutrophils % Lymphocytes % Monocytes % Eosinophils % Basophils % Absolute Neutrophils Absolute Lymphocytes Absolute Monocytes Absolute Eosinophils Absolute Basophils Sodium Potassium Chloride Carbon Dioxide Anion Gap BUN Creatinine Est GFR ( Amer) Est GFR (Non-Af Amer) Glucose Lactic Acid Calcium Magnesium Total Bilirubin AST ALT Alkaline Phosphatase Total Protein Albumin Free T4 1.45 Free T3 pg/mL 3.85 PTH Intact 228 H Urine Color STRAW Urine Appearance CLEAR Urine pH 6.0 Ur Specific [place] 1.003 Urine Protein NEGATIVE Urine Glucose (UA) NEGATIVE Urine Ketones NEGATIVE Urine Blood NEGATIVE Urine Nitrite NEGATIVE Ur Leukocyte Esterase NEGATIVE 05/08/17 05/08/17 05/08/17 08:42 08:42 08:42 WBC 4.1 RBC 4.43 Hgb 11.1 L Hct 34.0 L MCV 77 L MCH 25.1 L MCHC 32.6 RDW 14.3 H Plt Count 321 Seg Neutrophils % 60.3 Lymphocytes % 29.1 Monocytes % 7.9 Eosinophils % 2.0 Basophils % 0.7 Absolute Neutrophils 2.5 Absolute Lymphocytes 1.2 Absolute Monocytes 0.3 Absolute Eosinophils 0.1 Absolute Basophils 0.0 Sodium 131.6 L Potassium 4.6 Chloride 100 Carbon Dioxide 20 L Anion Gap 12 BUN 50 H Creatinine 2.05 H Est GFR ( Amer) 29 L Est GFR (Non-Af Amer) 24 L Glucose 69 L Lactic Acid 0.8 Calcium 10.6 H Magnesium 1.9 Total Bilirubin 0.3 AST 24 ALT 36 Alkaline Phosphatase 95 Total Protein 6.5 Albumin 3.6 Free T4 Free T3 pg/mL PTH Intact Urine Color Urine Appearance Urine pH Ur Specific [place] Urine Protein Urine Glucose (UA) Urine Ketones Urine Blood Urine Nitrite Ur Leukocyte Esterase 05/06/17 05/06/17 05/08/17 00:28 06:07 03:12 Creatine Kinase 133 CK-MB (CK-2) Troponin I < 0.012 0.013 05/08/17 05/08/17 03:12 08:42 Creatine Kinase 125 CK-MB (CK-2) 1.38 Troponin I < 0.012 Impressions: Head CT 05/05/17 16:50 IMPRESSION: Biparietal small vessel chronic appearing white matter disease. No CT evidence of acute ischemic change, acute intracranial hemorrhage, mass effect, or midline shift. EVIDENCE OF ACUTE STROKE: NO. Renal Ultrasound 05/06/17 00:00 IMPRESSION: No hydronephrosis. Chest X-Ray 05/08/17 00:00 IMPRESSION: No acute radiographic finding in the chest. Assessment & Plan - Diagnosis (1) Hypertension Qualifiers: Hypertension type: essential hypertension Qualified Code(s): I10 - Essential (primary) hypertension Is this a current diagnosis for this admission?: Yes Plan: Patient has a history of hypertension currently on several antihypertensive medications but she came in hypotensive blood pressure 60s over 30s will hold her CYNTHIA inhibitors at this time due to her acute renal failure. Also hold her diuretics (2) Acute renal failure Qualifiers: Acute renal failure type: unspecified Qualified Code(s): N17.9 - Acute kidney failure, unspecified Is this a current diagnosis for this admission?: Yes Plan: On admission patient had a sodium of 121, creatinine 4.17, GFR 13, calcium was 10.7, she denies having any issues with her kidneys states she was never told she had chronic kidney disease. She has been on Lasix and diuretics and high blood pressure medications for about 5 years. Also patient denies having any dementia she is currently on dementia medications and has been inconsistent with some of her history I suspect she has acute on chronic renal failure but slowly improving (3) CAD (coronary artery disease) Qualifiers: Coronary Disease-Associated Artery/Lesion type: [place] artery [place] vs. transplanted heart: unspecified whether [place] or transplanted heart Associated angina: angina presence unspecified Qualified Code(s): I25.10 - Atherosclerotic heart disease of [place] coronary artery without angina pectoris Is this a current diagnosis for this admission?: Yes Plan: Patient has past medical history of coronary artery disease with stent placement. 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 Patient is unknown glucose and has sliding scale insulin ordered. Hemoglobin A1c was 8.5. She may need to have some of her medications adjusted accordingly (6) Hyponatremia Is this a current diagnosis for this admission?: Yes Plan: Initially sodium was 117 on admission. Recheck sodium is increased to 124. Continue to monitor and follow. Will hold her diuretics at this time to help improve her sodium levels. Back to baseline (7) Paroxysmal atrial fibrillation Is this a current diagnosis for this admission?: Yes Plan: Patient has past medical history of A. fib and she currently is had a episode of A. fib with RVR heart rate was sustained at 130 and confirmed via EKG. currently patient is not on any anticoagulation. And her home medications beta- blockers were not given today. She was given approximately 3 L of IV fluids in the ER. Cardiology consult was obtained and appreciated. We will also obtain an echocardiogram and a nuclear stress test. Cotninues to have Aifib will start a heparin gtt. for anticoagulation and once her RF improves will start her on a oral anti-coagulant. Patient may benefit from another medication for atrial fibrillation instead of metoprolol since her blood pressure drops and will appreciate cardiology input. Also we have assessed her fall risk in which she denies falling and so did her family. (8) Stented coronary artery Is this a current diagnosis for this admission?: Yes Plan: Patient was not on any anticoagulants so seems to be stable but she will be on something for her A. fib (9) Hypotension Qualifiers: Hypotension type: unspecified hypotension type Qualified Code(s): I95.9 - Hypotension, unspecified Is this a current diagnosis for this admission?: Yes Plan: Unsure why patient remains hypotensive unless it is from some of her agents like the metoprolol. All of her antihypertensive medications were discontinued. - Time Time Spent with patient: 25-34 minutes Medications reviewed and adjusted accordingly: Yes
[2017-05-08 17:08] LABS: ANION GAP 10 (5-19); BLOOD UREA NITROGEN 43 mg/dL (7-20); CALCIUM 10.2 mg/dL (8.4-10.2); CARBON DIOXIDE 22 mmol/L (22-30); CHLORIDE 100 mmol/L (98-107); CREATININE RESULT 1.85 mg/dL (0.52-1.25); GLUCOSE 51 mg/dL (75-110); POTASSIUM 4.5 mmol/L (3.6-5.0); SODIUM 131.5 mmol/L (137-145)
[2017-05-08] MEDS: NORMAL SALINE 1000 ML 1,000 ML IV PRN (17:12)
--- NOTE | 2017-05-08 20:20 | PDOC PROGRESS REPORT ---
Subjective Progress Note for:: 05/08/17 Subjective:: Patient was moved to the unit because a problem with low blood pressure. Patient however did not need to be started on vasopressors. Patient blood pressure was repeated and was noted to be at around 120/70. Blood pressure was taken manually and was performed on both upper extremity. The blood pressure in both upper extremity was noted to be same. Even though patient has been noted to have low blood pressure, patient has been noted to be feeling good and looking good. Patient maintaining atrial fibrillation. Pt is denying any chest arm or neck discomfort. Patient denying any PND, orthopnea. Patient denied any sustained palpitations, dizziness, syncope, near syncope. Patient denying any fever chills. Patient denying any other significant discomfort. Patient is maintaining atrial fibrillation. Review of systems: Rest review of systems negative. Medications: Medications have been reviewed. Physical Exam Vital Signs: Temp Pulse Resp BP Pulse Ox 98.0 F 67 17 95/66 L 96 05/08/17 16:12 05/08/17 19:00 05/08/17 18:00 05/08/17 16:53 05/08/17 16:12 Intake & Output 05/07/17 05/08/17 05/09/17 06:59 06:59 06:59 Intake Total 2000 2717 1856 Output Total 9664 542 9838 Balance 951 1867 331 Weight 89.6 kg 90.1 kg Exam: GENERAL: well-nourished and in no acute distress. Alert and oriented x3 HEAD: Atraumatic, normocephalic. EYES: Pupils equal round and reactive to light, extraocular movements intact, sclera anicteric, conjunctiva are normal. ENT: TMs normal, nares patent, oropharynx clear without exudates. Moist mucous membranes. No oral ulcerations or bleeding gums noted NECK: supple without lymphadenopathy. Trachea is central. No cervical or axillary lymphadenopathy noted. Carotids are 2+, JVD WNL LUNGS: Respiration seems nonlabored, no significant accessory muscle action noted. Breath sounds clear to auscultation bilaterally and equal noted. No wheezes rales or rhonchi noted. No significant dullness noted on percussion. CHEST: Palpation of the chest wall shows no significant chest wall tenderness. No other significant abnormalities noted. 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 ABDOMEN: Soft, no significant tenderness appreciated, normoactive bowel sounds. No guarding, no rebound. No rigidity noted . No masses appreciated. EXTREMITIES: Pedal pulses are 1-2+, no calf tenderness noted. No clubbing or cyanosis.trace to 1+ pedal edema noted NEUROLOGICAL: Focused neurological exam showed no significant neurologic deficit. Normal speech, no focal weakness appreciated. PSYCH: Normal mood, normal affect. Judgment and insight within normal limits. SKIN: No significant ecchymosis, rash, ulcerations or signs of pruritus noted. MUSCULOSKELETAL EXAM: No significant joint swelling noted. Results Laboratory Results: 05/08/17 08:42 05/08/17 16:35 05/08/17 05/08/17 05/08/17 06:25 06:30 08:42 WBC RBC Hgb Hct MCV MCH MCHC RDW Plt Count Seg Neutrophils % Lymphocytes % Monocytes % Eosinophils % Basophils % Absolute Neutrophils Absolute Lymphocytes Absolute Monocytes Absolute Eosinophils Absolute Basophils Sodium 131.6 L Potassium 4.6 Chloride 100 Carbon Dioxide 20 L Anion Gap 12 BUN 50 H Creatinine 2.05 H Est GFR ( Amer) 29 L Est GFR (Non-Af Amer) 24 L Glucose 69 L Lactic Acid Calcium 10.6 H Magnesium 1.9 Total Bilirubin 0.3 AST 24 ALT 36 Alkaline Phosphatase 95 Total Protein 6.5 Albumin 3.6 Free T4 1.45 Free T3 pg/mL 3.85 Urine Color STRAW Urine Appearance CLEAR Urine pH 6.0 Ur Specific [place] 1.003 Urine Protein NEGATIVE Urine Glucose (UA) NEGATIVE Urine Ketones NEGATIVE Urine Blood NEGATIVE Urine Nitrite NEGATIVE Ur Leukocyte Esterase NEGATIVE 05/08/17 05/08/17 05/08/17 08:42 08:42 16:35 WBC 4.1 RBC 4.43 Hgb 11.1 L Hct 34.0 L MCV 77 L MCH 25.1 L MCHC 32.6 RDW 14.3 H Plt Count 321 Seg Neutrophils % 60.3 Lymphocytes % 29.1 Monocytes % 7.9 Eosinophils % 2.0 Basophils % 0.7 Absolute Neutrophils 2.5 Absolute Lymphocytes 1.2 Absolute Monocytes 0.3 Absolute Eosinophils 0.1 Absolute Basophils 0.0 Sodium 131.5 L Potassium 4.5 Chloride 100 Carbon Dioxide 22 Anion Gap 10 BUN 43 H Creatinine 1.85 H Est GFR ( Amer) 33 L Est GFR (Non-Af Amer) 27 L Glucose 51 L Lactic Acid 0.8 Calcium 10.2 Magnesium Total Bilirubin AST ALT Alkaline Phosphatase Total Protein Albumin Free T4 Free T3 pg/mL Urine Color Urine Appearance Urine pH Ur Specific [place] Urine Protein Urine Glucose (UA) Urine Ketones Urine Blood Urine Nitrite Ur Leukocyte Esterase 05/06/17 05/06/17 05/08/17 00:28 06:07 03:12 Creatine Kinase 133 CK-MB (CK-2) Troponin I < 0.012 0.013 05/08/17 05/08/17 05/08/17 03:12 08:42 08:42 Creatine Kinase 125 CK-MB (CK-2) 1.38 1.39 Troponin I < 0.012 < 0.012 EKG Comments: Telemetry strip shows atrial fibrillation with relatively controlled heart rate response. Impressions: Head CT 05/05/17 16:50 IMPRESSION: Biparietal small vessel chronic appearing white matter disease. No CT evidence of acute ischemic change, acute intracranial hemorrhage, mass effect, or midline shift. EVIDENCE OF ACUTE STROKE: NO. Renal Ultrasound 05/06/17 00:00 IMPRESSION: No hydronephrosis. Chest X-Ray 05/08/17 00:00 IMPRESSION: No acute radiographic finding in the chest. Assessment & Plan - Diagnosis (1) Paroxysmal atrial fibrillation Is this a current diagnosis for this admission?: Yes (2) Chest pain Qualifiers: Chest pain type: unspecified Qualified Code(s): R07.9 - Chest pain, unspecified Is this a current diagnosis for this admission?: Yes (3) Hypertension Qualifiers: Hypertension type: essential hypertension Qualified Code(s): I10 - Essential (primary) hypertension Is this a current diagnosis for this admission?: Yes (4) CAD (coronary artery disease) Qualifiers: Coronary Disease-Associated Artery/Lesion type: [place] artery [place] vs. 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 Had earlier considered starting patient on Multaq for heart rate control but patient on several other agents which can prolonged QTC therefore opted not to start patient on this antiarrhythmics. Other antiarrhythmics somewhat relatively contraindicated except for may be amiodarone. Should patient start having problems with heart rate controlled, could start amiodarone bolus and drip protocol. Chest pain: This was noted on admission. There has been no recurrence. Will start patient on Ranexa. This might help somewhat with heart rate control and may in fact help getting patient in sinus rhythm. Hypertension: Blood pressure has been well controlled in fact has been intermittently on the low side. Coronary artery disease: Symptomatically stable. Renal insufficiency: Stable Dyslipidemia: Stable. - Time Time with patient: 15-25 minutes - CODE STATUS was discussed, patient remains full code. Surrogate decision-maker unchanged. Multiple medical problems were addressed. More than 50% of the time spent coordinating care, discussing management plans with involved caregivers. Management plans discussed with involved personnels. Medical decision making was of moderate to high complexity , patient's has multiple comorbidities. Medications reviewed and adjusted accordingly: Yes
[2017-05-08] MEDS: RISPERIDONE 1 MG TABLET PO SCH (22:19)
[2017-05-08] MEDS: ATORVASTATIN CALCIUM 20 MG TABLET PO SCH (22:19)
[2017-05-08] MEDS: RANOLAZINE 500 MG TAB.SR.12H PO SCH (22:19)
[2017-05-08] MEDS: METOPROLOL TARTRATE 25 MG TABLET PO SCH (22:19)
[2017-05-08] MEDS: INSULIN GLARGINE,HUM.REC.ANLOG 300 UNIT/3 ML INSULN.PEN SUBCUT SCH (22:20)
--- NOTE | 2017-05-09 10:19 | PDOC PROGRESS REPORT ---
Subjective Progress Note for:: 05/09/17 Subjective:: Patient was noted to be stable for last 24 hours. She was noted to be in sinus rhythm. Patient was started on Ranexa 500 mg p.o. twice daily yesterday. Pt is denying any chest arm or neck discomfort. Patient denying any PND, orthopnea. Patient denied any sustained palpitations, dizziness, syncope, near syncope. Patient denying any fever chills. Patient denying any other significant discomfort. Patient today noted to be in sinus rhythm. Review of systems: Rest review of systems negative. Medications: Medications have been reviewed. Physical Exam Vital Signs: Temp Pulse Resp BP Pulse Ox 98.0 F 67 14 91/53 L 96 05/08/17 16:12 05/08/17 19:00 05/09/17 05:00 05/09/17 04:53 05/08/17 16:12 Intake & Output 05/08/17 05/09/17 05/10/17 06:59 06:59 06:59 Intake Total 2717 3072 Output Total 850 2925 Balance 1867 147 Weight 90.1 kg Exam: GENERAL: well-nourished and in no acute distress. Alert and oriented x3 HEAD: Atraumatic, normocephalic. EYES: Pupils equal round and reactive to light, extraocular movements intact, sclera anicteric, conjunctiva are normal. ENT: TMs normal, nares patent, oropharynx clear without exudates. Moist mucous membranes. No oral ulcerations or bleeding gums noted NECK: supple without lymphadenopathy. Trachea is central. No cervical or axillary lymphadenopathy noted. Carotids are 2+, JVD WNL LUNGS: Respiration seems nonlabored, no significant accessory muscle action noted. Breath sounds clear to auscultation bilaterally and equal noted. No wheezes rales or rhonchi noted. No significant dullness noted on percussion. CHEST: Palpation of the chest wall shows no significant chest wall tenderness. No other significant abnormalities noted. 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 ABDOMEN: Soft, no significant tenderness appreciated, normoactive bowel sounds. No guarding, no rebound. No rigidity noted . No masses appreciated. EXTREMITIES: Pedal pulses are 1-2+, no calf tenderness noted. No clubbing or cyanosis.trace to 1+ pedal edema noted NEUROLOGICAL: Focused neurological exam showed no significant neurologic deficit. Normal speech, no focal weakness appreciated. PSYCH: Normal mood, normal affect. Judgment and insight within normal limits. SKIN: No significant ecchymosis, rash, ulcerations or signs of pruritus noted. MUSCULOSKELETAL EXAM: No significant joint swelling noted. Results Laboratory Results: 05/08/17 08:42 05/08/17 16:35 05/08/17 16:35 Sodium 131.5 L Potassium 4.5 Chloride 100 Carbon Dioxide 22 Anion Gap 10 BUN 43 H Creatinine 1.85 H Est GFR ( Amer) 33 L Est GFR (Non-Af Amer) 27 L Glucose 51 L Calcium 10.2 05/06/17 05/06/17 05/08/17 00:28 06:07 03:12 Creatine Kinase 133 CK-MB (CK-2) Troponin I < 0.012 0.013 05/08/17 05/08/17 05/08/17 03:12 08:42 08:42 Creatine Kinase 125 CK-MB (CK-2) 1.38 1.39 Troponin I < 0.012 < 0.012 EKG Comments: Telemetry strips reviewed showed sinus rhythm. Impressions: Head CT 05/05/17 16:50 IMPRESSION: Biparietal small vessel chronic appearing white matter disease. No CT evidence of acute ischemic change, acute intracranial hemorrhage, mass effect, or midline shift. EVIDENCE OF ACUTE STROKE: NO. Renal Ultrasound 05/06/17 00:00 IMPRESSION: No hydronephrosis. Chest X-Ray 05/08/17 00:00 IMPRESSION: No acute radiographic finding in the chest. Assessment & Plan - Diagnosis (1) Paroxysmal atrial fibrillation Is this a current diagnosis for this admission?: Yes (2) Chest pain Qualifiers: Chest pain type: unspecified Qualified Code(s): R07.9 - Chest pain, unspecified Is this a current diagnosis for this admission?: Yes (3) Hypertension Qualifiers: Hypertension type: essential hypertension Qualified Code(s): I10 - Essential (primary) hypertension Is this a current diagnosis for this admission?: Yes (4) CAD (coronary artery disease) Qualifiers: Coronary Disease-Associated Artery/Lesion type: [place] artery [place] vs. transplanted heart: unspecified whether [place] or transplanted heart Associated angina: angina presence unspecified Qualified Code(s): I25.10 - Atherosclerotic heart disease of [place] coronary artery without angina pectoris Is this a current diagnosis for this admission?: Yes (5) Diabetes Qualifiers: Diabetes mellitus type: type 2 Diabetes mellitus complication status: with kidney complications Diabetes mellitus complication detail: with chronic kidney disease Diabetes mellitus lobsterman insulin use: unspecified intermediate insulin use status Chronic kidney disease stage: unspecified stage Qualified Code(s): E11.22 - Type 2 diabetes mellitus with diabetic chronic kidney disease Is this a current diagnosis for this admission?: Yes (6) Renal insufficiency Is this a current diagnosis for this admission?: Yes (7) HLD (hyperlipidemia) Qualifiers: Hyperlipidemia type: unspecified Qualified Code(s): E78.5 - Hyperlipidemia , unspecified Is this a current diagnosis for this admission?: Yes - Notes Notes: Atrial fibrillation: Paroxysmal, today in sinus rhythm. Continue with current dose of beta-elias and Ranexa. Beta-elias dose could be increased as tolerated by her blood pressure. Chest pain: This was noted on admission. There has been no recurrence. Continue patient on Ranexa. This might help somewhat with heart rate control and may in fact help getting patient in sinus rhythm. Hypertension: Blood pressure has been well controlled in fact has been intermittently on the low side. Coronary artery disease: Symptomatically stable. Renal insufficiency: Stable, has significantly improved since admission. Dyslipidemia: Stable. - Time Time with patient: 15-25 minutes - CODE STATUS was discussed, patient remains full code. Surrogate decision-maker unchanged. Multiple medical problems were addressed. More than 50% of the time spent coordinating care, discussing management plans with involved caregivers. Management plans discussed with involved personnels. Medical decision making was of moderate to high complexity , patient's has multiple comorbidities. Medications reviewed and adjusted accordingly: Yes
[2017-05-09] MEDS: DONEPEZIL HCL 5 MG TABLET PO SCH (10:47)
[2017-05-09] MEDS: FERROUS SULFATE 325 MG TABLET PO SCH (10:47)
[2017-05-09] MEDS: OMEGA-3 ACID ETHYL ESTERS 1 GM CAPSULE PO SCH (10:48)
[2017-05-09] MEDS: SERTRALINE HCL 50 MG TABLET PO SCH (10:49)
[2017-05-09] MEDS: LANSOPRAZOLE 30 MG TAB.RAP.DR PO SCH (10:49)
[2017-05-09] MEDS: RANOLAZINE 500 MG TAB.SR.12H PO SCH ×2 (10:50→21:17)
[2017-05-09] MEDS: INSULIN GLARGINE,HUM.REC.ANLOG 300 UNIT/3 ML INSULN.PEN SUBCUT SCH ×2 (10:56→22:16)
[2017-05-09] MEDS: METOPROLOL TARTRATE 25 MG TABLET PO SCH ×2 (11:00→21:16)
--- NOTE | 2017-05-09 13:30 | PDOC PROGRESS REPORT ---
Subjective Progress Note for:: 05/09/17 Subjective:: This is a 67-year-old female Who was admitted for acute renal failure and her blood pressure was initially 60/33. Patient states she lives in [place] and is here visiting her son has been here for about a month. No family was present during my exam and initially her creatinine was 4.3 and her GFR was 13 but patient denies having a history of chronic renal disease. Also her initial sodium level was 117. Her sodium has increased to 124 today. Patient developed A. fib with RVR rate 130 in which is confirmed with EKG. Metoprolol 5 mg IV 1 was given a rate decreased to 80s. Echocardiogram was ordered and cardiology consult. Patient is pleasantly confused During the night of 05/06- patient some hypotension again clinical transformation specialist provider DC' d her metoprolol and she was given 250 cc bolus of normal saline. Again today patient A. fib with RVR and some p.o. metoprolol was reordered and was given. Echocardiogram ordered and cardiology consult and input appreciated. Patient's sodium level has increased to 125.9, creatinine is decreased to 2.44 with a GFR of 21. 05/08 Last night she had another episode of bradycardia. She was transferred to ICU was given a bolus of normal saline. Blood pressure came up to 120s over 60s. She was ordered cultures for possible underlying infection which I personally do not feel that her issue. She continues to be in A. fib but her rate is controlled at the moment. Lab work was obtained. And discussion with family present with both myself and Dr. Whelan. We will transfer her to MICU, start heparin drip for A. fib per protocol with the plan of transitioning her to a another oral anticoagulant once her renal function normalizes. It is improving. Continue to monitor renal function 05/09/17 continues to went on a bed on MICU. Heparin drip per protocol. Creatinine was down to 1.8 continue to monitor in a.m. currently she is in sinus rhythm. Yesterday we had to decrease her metoprolol to 12.5 mg p.o. twice daily in which her blood pressure has remained stable and her heart rate is sinus. Physical Exam Vital Signs: Temp Pulse Resp BP Pulse Ox 97.5 F 79 13 106/49 L 100 05/09/17 10:00 05/09/17 07:00 05/09/17 10:00 05/09/17 08:53 05/09/17 10:00 Intake & Output 05/08/17 05/09/17 05/10/17 06:59 06:59 06:59 Intake Total 2717 3072 480 Output Total 850 2925 1050 Balance 1867 147 -570 Weight 90.1 kg 90.7 kg General appearance: PRESENT: no acute distress, well-developed, well-nourished Head exam: PRESENT: atraumatic, normocephalic Eye exam: PRESENT: conjunctiva pink, EOMI, PERRLA. ABSENT: scleral icterus Ear exam: PRESENT: normal external ear exam Mouth exam: PRESENT: moist, tongue midline Neck exam: ABSENT: carotid bruit, JVD, lymphadenopathy, thyromegaly Respiratory exam: PRESENT: clear to auscultation ricardo. ABSENT: rales, rhonchi, wheezes Cardiovascular exam: PRESENT: RRR. ABSENT: diastolic murmur, rubs, systolic murmur Pulses: PRESENT: normal dorsalis pedis pul Vascular exam: PRESENT: normal capillary refill GI/Abdominal exam: PRESENT: normal bowel sounds, soft. ABSENT: distended, guarding, mass, organolmegaly, rebound, tenderness Rectal exam: PRESENT: deferred Extremities exam: PRESENT: full ROM. ABSENT: calf tenderness, clubbing, pedal edema Neurological exam: PRESENT: alert, awake, oriented to person, oriented to place , oriented to time, oriented to situation, CN II-XII grossly intact. ABSENT: motor sensory deficit Psychiatric exam: PRESENT: appropriate affect, normal mood. ABSENT: homicidal ideation, suicidal ideation Skin exam: PRESENT: dry, intact, warm. ABSENT: cyanosis, rash Results Laboratory Results: 05/08/17 08:42 05/08/17 16:35 05/08/17 16:35 Sodium 131.5 L Potassium 4.5 Chloride 100 Carbon Dioxide 22 Anion Gap 10 BUN 43 H Creatinine 1.85 H Est GFR ( Amer) 33 L Est GFR (Non-Af Amer) 27 L Glucose 51 L Calcium 10.2 05/06/17 05/06/17 05/08/17 00:28 06:07 03:12 Creatine Kinase 133 CK-MB (CK-2) Troponin I < 0.012 0.013 1005/08/17 05/08/17 03:12 08:42 08:42 Creatine Kinase 125 CK-MB (CK-2) 1.38 1.39 Troponin I < 0.012 < 0.012 Impressions: Head CT 05/05/17 16:50 IMPRESSION: Biparietal small vessel chronic appearing white matter disease. No CT evidence of acute ischemic change, acute intracranial hemorrhage, mass effect, or midline shift. EVIDENCE OF ACUTE STROKE: NO. Renal Ultrasound 05/06/17 00:00 IMPRESSION: No hydronephrosis. Chest X-Ray 05/08/17 00:00 IMPRESSION: No acute radiographic finding in the chest. Assessment & Plan - Diagnosis (1) Paroxysmal atrial fibrillation Is this a current diagnosis for this admission?: Yes Plan: Patient has past medical history of A. fib and she currently is had a episode of A. fib with RVR heart rate was sustained at 130 and confirmed via EKG. currently patient is not on any anticoagulation. And her home medications beta- blockers were not given today. She was given approximately 3 L of IV fluids in the ER. Cardiology consult was obtained and appreciated. We will also obtain an echocardiogram and a nuclear stress test. Continues to have Aifib will start on a heparin gtt 05/08/17 for anticoagulation and once her RF improves will start her on a oral anti-coagulant. Patient may benefit from another medication for atrial fibrillation instead of metoprolol since her blood pressure drops and will appreciate cardiology input. Also we have assessed her fall risk in which she denies falling and so did her family. 05/09/17 patient is in normal sinus rhythm today rate was 72. (2) Hypertension Qualifiers: Hypertension type: essential hypertension Qualified Code(s): I10 - Essential (primary) hypertension Is this a current diagnosis for this admission?: Yes (3) Acute renal failure Qualifiers: Acute renal failure type: unspecified Qualified Code(s): N17.9 - Acute kidney failure, unspecified Is this a current diagnosis for this admission?: Yes Plan: On admission patient had a sodium of 121, creatinine 4.17, GFR 13, calcium was 10.7, she denies having any issues with her kidneys states she was never told she had chronic kidney disease. She has been on Lasix and diuretics and high blood pressure medications for about 5 years. Also patient denies having any dementia she is currently on dementia medications and has been inconsistent with some of her history I suspect she has acute on chronic renal failure but slowly improving 05/09/17 Creatine down to 1.8 (4) CAD (coronary artery disease) Qualifiers: Coronary Disease-Associated Artery/Lesion type: [place] artery [place] vs. transplanted heart: unspecified whether [place] or transplanted heart Associated angina: angina presence unspecified Qualified Code(s): I25.10 - Atherosclerotic heart disease of [place] coronary artery without angina pectoris Is this a current diagnosis for this admission?: Yes Plan: Patient has past medical history of coronary artery disease with stent placement. denies chest pain (5) Chest pain Qualifiers: Chest pain type: unspecified Qualified Code(s): R07.9 - Chest pain, unspecified Is this a current diagnosis for this admission?: Yes (6) Diabetes Qualifiers: Diabetes mellitus type: type 2 Diabetes mellitus complication status: with kidney complications Diabetes mellitus complication detail: with chronic kidney disease Diabetes mellitus elementary math tutor insulin use: unspecified half-way insulin use status Chronic kidney disease stage: unspecified stage Qualified Code(s): E11.22 - Type 2 diabetes mellitus with diabetic chronic kidney disease Is this a current diagnosis for this admission?: Yes Plan: We will check a hemoglobin A1c in the morning. Patient is unknown glucose and has sliding scale insulin ordered. Hemoglobin A1c was 8.5. She may need to have some of her medications adjusted accordingly (7) Hyponatremia Is this a current diagnosis for this admission?: Yes (8) Stented coronary artery Is this a current diagnosis for this admission?: Yes (9) Hypotension Qualifiers: Hypotension type: unspecified hypotension type Qualified Code(s): I95.9 - Hypotension, unspecified Is this a current diagnosis for this admission?: Yes
[2017-05-09 14:38] LABS: ANION GAP 8 (5-19); BLOOD UREA NITROGEN 32 mg/dL (7-20); CALCIUM 10.4 mg/dL (8.4-10.2); CARBON DIOXIDE 22 mmol/L (22-30); CHLORIDE 101 mmol/L (98-107); CREATININE RESULT 1.65 mg/dL (0.52-1.25); GLUCOSE 90 mg/dL (75-110); POTASSIUM 5.1 mmol/L (3.6-5.0); SODIUM 130.7 mmol/L (137-145)
[2017-05-09] MEDS: HEPARIN SODIUM,PORCINE/D5W 25,000 UNIT/250 ML RTUINJ IV PRN (19:03)
[2017-05-09] MEDS: NORMAL SALINE 1000 ML 1,000 ML IV PRN (21:13)
[2017-05-09] MEDS: ATORVASTATIN CALCIUM 20 MG TABLET PO SCH (21:15)
[2017-05-09] MEDS: RISPERIDONE 1 MG TABLET PO SCH (21:15)
[2017-05-10] MEDS: HEPARIN SOD (PORCINE) 1,000 UNIT/ML 10 ML VIAL IV PRN (07:33)
[2017-05-10 08:36] LABS: ANION GAP 7 (5-19); BLOOD UREA NITROGEN 29 mg/dL (7-20); CALCIUM 10.2 mg/dL (8.4-10.2); CARBON DIOXIDE 20 mmol/L (22-30); CHLORIDE 105 mmol/L (98-107); CREATININE RESULT 1.88 mg/dL (0.52-1.25); GLUCOSE 94 mg/dL (75-110); POTASSIUM 5.2 mmol/L (3.6-5.0); SODIUM 132.3 mmol/L (137-145)
[2017-05-10] MEDS: INSULIN GLARGINE,HUM.REC.ANLOG 300 UNIT/3 ML INSULN.PEN SUBCUT SCH ×2 (09:17→22:11)
[2017-05-10] MEDS: OMEGA-3 ACID ETHYL ESTERS 1 GM CAPSULE PO SCH (09:17)
[2017-05-10] MEDS: FERROUS SULFATE 325 MG TABLET PO SCH (09:17)
[2017-05-10] MEDS: LANSOPRAZOLE 30 MG TAB.RAP.DR PO SCH (09:18)
[2017-05-10] MEDS: SERTRALINE HCL 50 MG TABLET PO SCH (09:18)
[2017-05-10] MEDS: DONEPEZIL HCL 5 MG TABLET PO SCH (09:18)
[2017-05-10] MEDS: RANOLAZINE 500 MG TAB.SR.12H PO SCH ×2 (09:18→22:10)
[2017-05-10] MEDS: NORMAL SALINE 1000 ML 1,000 ML IV PRN (11:28)
[2017-05-10] MEDS ORDERED: SODIUM POLYSTYRENE SULFONATE 15 GM/60 ML PO ONE (11:30)
--- NOTE | 2017-05-10 11:56 | PDOC PROGRESS REPORT ---
Subjective Progress Note for:: 05/10/17 Subjective:: Patient claims to be doing better. She was noted to be in sinus rhythm. Continue patient on Ranexa 500 mg p.o. twice daily. Pt is denying any chest arm or neck discomfort. Patient denying any PND, orthopnea. Patient denied any sustained palpitations, dizziness, syncope, near syncope. Patient denying any fever chills. Patient denying any other significant discomfort. Patient today noted to be in sinus rhythm this morning. Review of systems: Rest review of systems negative. Medications: Medications have been reviewed. Physical Exam Vital Signs: Temp Pulse Resp BP Pulse Ox 99.0 F 79 16 91/50 L 97 05/10/17 07:46 05/10/17 07:46 05/10/17 07:46 05/10/17 07:46 05/10/17 07:46 Intake & Output 05/09/17 05/10/17 05/11/17 06:59 06:59 06:59 Intake Total 3072 3984 Output Total 2925 3550 Balance 147 434 Weight 90.7 kg 97.1 kg Exam: GENERAL: well-nourished and in no acute distress. Alert and oriented x3 HEAD: Atraumatic, normocephalic. EYES: Pupils equal round and reactive to light, extraocular movements intact, sclera anicteric, conjunctiva are normal. ENT: TMs normal, nares patent, oropharynx clear without exudates. Moist mucous membranes. No oral ulcerations or bleeding gums noted NECK: supple without lymphadenopathy. Trachea is central. No cervical or axillary lymphadenopathy noted. Carotids are 2+, JVD WNL LUNGS: Respiration seems nonlabored, no significant accessory muscle action noted. Breath sounds clear to auscultation bilaterally and equal noted. No wheezes rales or rhonchi noted. No significant dullness noted on percussion. CHEST: Palpation of the chest wall shows no significant chest wall tenderness. No other significant abnormalities noted. 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 ABDOMEN: Soft, no significant tenderness appreciated, normoactive bowel sounds. No guarding, no rebound. No rigidity noted . No masses appreciated. EXTREMITIES: Pedal pulses are 1-2+, no calf tenderness noted. No clubbing or cyanosis.trace to 1+ pedal edema noted NEUROLOGICAL: Focused neurological exam showed no significant neurologic deficit. Normal speech, no focal weakness appreciated. PSYCH: Normal mood, normal affect. Judgment and insight within normal limits. SKIN: No significant ecchymosis, rash, ulcerations or signs of pruritus noted. MUSCULOSKELETAL EXAM: No significant joint swelling noted. Results Laboratory Results: 05/08/17 08:42 05/10/17 05:20 05/09/17 05/10/17 14:10 05:20 Sodium 130.7 L 132.3 L Potassium 5.1 H 5.2 H Chloride 101 105 Carbon Dioxide 22 20 L Anion Gap 8 7 BUN 32 H 29 H Creatinine 1.65 H 1.88 H Est GFR ( Amer) 37 L 32 L Est GFR (Non-Af Amer) 31 L 27 L Glucose 90 94 Calcium 10.4 H 10.2 05/06/17 05/06/17 05/08/17 00:28 06:07 03:12 Creatine Kinase 133 CK-MB (CK-2) Troponin I < 0.012 0.013 05/08/17 05/08/17 05/08/17 03:12 08:42 08:42 Creatine Kinase 125 CK-MB (CK-2) 1.38 1.39 Troponin I < 0.012 < 0.012 EKG Comments: Telemetry strips shows sinus rhythm Impressions: Head CT 05/05/17 16:50 IMPRESSION: Biparietal small vessel chronic appearing white matter disease. No CT evidence of acute ischemic change, acute intracranial hemorrhage, mass effect, or midline shift. EVIDENCE OF ACUTE STROKE: NO. Renal Ultrasound 05/06/17 00:00 IMPRESSION: No hydronephrosis. Chest X-Ray 05/08/17 00:00 IMPRESSION: No acute radiographic finding in the chest. Assessment & Plan - Diagnosis (1) Paroxysmal atrial fibrillation Is this a current diagnosis for this admission?: Yes (2) Chest pain Qualifiers: Chest pain type: unspecified Qualified Code(s): R07.9 - Chest pain, unspecified Is this a current diagnosis for this admission?: Yes (3) Hypertension Qualifiers: Hypertension type: essential hypertension Qualified Code(s): I10 - Essential (primary) hypertension Is this a current diagnosis for this admission?: Yes (4) CAD (coronary artery disease) Qualifiers: Coronary Disease-Associated Artery/Lesion type: [place] artery [place] vs. transplanted heart: unspecified whether [place] or transplanted heart Associated angina: angina presence unspecified Qualified Code(s): I25.10 - Atherosclerotic heart disease of [place] coronary artery without angina pectoris Is this a current diagnosis for this admission?: Yes (5) Diabetes Qualifiers: Diabetes mellitus type: type 2 Diabetes mellitus complication status: with kidney complications Diabetes mellitus complication detail: with chronic kidney disease Diabetes mellitus fpc insulin use: unspecified fpc insulin use status Chronic kidney disease stage: unspecified stage Qualified Code(s): E11.22 - Type 2 diabetes mellitus with diabetic chronic kidney disease Is this a current diagnosis for this admission?: Yes (6) Renal insufficiency Is this a current diagnosis for this admission?: Yes (7) HLD (hyperlipidemia) Qualifiers: Hyperlipidemia type: unspecified Qualified Code(s): E78.5 - Hyperlipidemia , unspecified Is this a current diagnosis for this admission?: Yes - Notes Notes: Atrial fibrillation: Paroxysmal, today in sinus rhythm. Continue with current dose of beta-elias and Ranexa. Beta-elias dose could be increased as tolerated by her blood pressure. Chest pain: This was noted on admission. There has been no recurrence. Continue patient on Ranexa. This might help somewhat with heart rate control and may in fact help getting patient in sinus rhythm. Hypertension: Blood pressure has been well controlled in fact has been intermittently on the low side. Blood pressure has been however stable. Coronary artery disease: Symptomatically stable. Renal insufficiency: Stable, has significantly improved since admission. Dyslipidemia: Stable. - Time Time Spent with patient: Recommend chronic anticoagulation with Eliquis. Will sign off. Please reconsult if needed. Time with patient: 15-25 minutes
[2017-05-10] MEDS: METOPROLOL TARTRATE 25 MG TABLET PO SCH ×2 (13:01→22:13)
--- NOTE | 2017-05-10 13:32 | PDOC PROGRESS REPORT ---
Subjective Progress Note for:: 05/10/17 Subjective:: This is a 67-year-old female Who was admitted for acute renal failure and her blood pressure was initially 60/33. Patient states she lives in [place] and is here visiting her son has been here for about a month. No family was present during my exam and initially her creatinine was 4.3 and her GFR was 13 but patient denies having a history of chronic renal disease. Also her initial sodium level was 117. Her sodium has increased to 124 today. Patient developed A. fib with RVR rate 130 in which is confirmed with EKG. Metoprolol 5 mg IV 1 was given a rate decreased to 80s. Echocardiogram was ordered and cardiology consult. 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 Again today patient A. fib with RVR and some p.o. metoprolol was reordered and was given. Echocardiogram ordered and cardiology consult and input appreciated. Patient's sodium level has increased to 125.9, creatinine is decreased to 2.44 with a GFR of 21. 05/08 Last night she had another episode of bradycardia. She was transferred to ICU was given a bolus of normal saline. Blood pressure came up to 120s over 60s. She was ordered cultures for possible underlying infection which I personally do not feel that her issue. She continues to be in A. fib but her rate is controlled at the moment. Lab work was obtained. And discussion with family present with both myself and Dr. Kong. We will transfer her to MICU , start heparin drip for A. fib per protocol with the plan of transitioning her to a another oral anticoagulant once her renal function normalizes. It is improving. Continue to monitor renal function 05/09/17 continues to went on a bed on MICU. Heparin drip per protocol. Creatinine was down to 1.8 continue to monitor in a.m. currently she is in sinus rhythm. Yesterday we had to decrease her metoprolol to 12.5 mg p.o. twice daily in which her blood pressure has remained stable and her heart rate is sinus. 05/10/17 patient denies any problems today Physical Exam Vital Signs: Temp Pulse Resp BP Pulse Ox 97.9 F 86 16 105/54 L 100 05/10/17 12:02 05/10/17 12:02 05/10/17 12:02 05/10/17 12:02 05/10/17 12:02 Intake & Output 05/09/17 05/10/17 05/11/17 06:59 06:59 06:59 Intake Total 3072 3984 Output Total 2925 3550 Balance 147 434 Weight 90.7 kg 97.1 kg General appearance: PRESENT: no acute distress, well-developed, well-nourished Head exam: PRESENT: atraumatic, normocephalic Eye exam: PRESENT: conjunctiva pink, EOMI, PERRLA. ABSENT: scleral icterus Ear exam: PRESENT: normal external ear exam Mouth exam: PRESENT: moist, tongue midline Neck exam: ABSENT: carotid bruit, JVD, lymphadenopathy, thyromegaly Respiratory exam: PRESENT: clear to auscultation ricardo. ABSENT: rales, rhonchi, wheezes Cardiovascular exam: PRESENT: RRR. ABSENT: diastolic murmur, rubs, systolic murmur Pulses: PRESENT: normal dorsalis pedis pul Vascular exam: PRESENT: normal capillary refill GI/Abdominal exam: PRESENT: normal bowel sounds, soft. ABSENT: distended, guarding, mass, organolmegaly, rebound, tenderness Rectal exam: PRESENT: deferred Extremities exam: PRESENT: full ROM. ABSENT: calf tenderness, clubbing, pedal edema Neurological exam: PRESENT: alert, awake, oriented to person, oriented to place , oriented to time, oriented to situation, CN II-XII grossly intact. ABSENT: motor sensory deficit Psychiatric exam: PRESENT: appropriate affect, normal mood. ABSENT: homicidal ideation, suicidal ideation Skin exam: PRESENT: dry, intact, warm. ABSENT: cyanosis, rash Results Laboratory Results: 05/08/17 08:42 05/10/17 05:20 05/09/17 05/10/17 14:10 05:20 Sodium 130.7 L 132.3 L Potassium 5.1 H 5.2 H Chloride 101 105 Carbon Dioxide 22 20 L Anion Gap 8 7 BUN 32 H 29 H Creatinine 1.65 H 1.88 H Est GFR ( Amer) 37 L 32 L Est GFR (Non-Af Amer) 31 L 27 L Glucose 90 94 Calcium 10.4 H 10.2 05/06/17 05/06/1717 00:28 06:07 03:12 Creatine Kinase 133 CK-MB (CK-2) Troponin I < 0.012 0.013 05/08/17 05/08/17 05/08/17 03:12 08:42 08:42 Creatine Kinase 125 CK-MB (CK-2) 1.38 1.39 Troponin I < 0.012 < 0.012 Impressions: Head CT 05/05/17 16:50 IMPRESSION: Biparietal small vessel chronic appearing white matter disease. No CT evidence of acute ischemic change, acute intracranial hemorrhage, mass effect, or midline shift. EVIDENCE OF ACUTE STROKE: NO. Renal Ultrasound 05/06/17 00:00 IMPRESSION: No hydronephrosis. Chest X-Ray 05/08/17 00:00 IMPRESSION: No acute radiographic finding in the chest. Assessment & Plan - Diagnosis (1) Paroxysmal atrial fibrillation Is this a current diagnosis for this admission?: Yes Plan: Patient has past medical history of A. fib and she currently is had a episode of A. fib with RVR heart rate was sustained at 130 and confirmed via EKG. currently patient is not on any anticoagulation. And her home medications beta- blockers were not given today. She was given approximately 3 L of IV fluids in the ER. Cardiology consult was obtained and appreciated. We will also obtain an echocardiogram and a nuclear stress test. Continues to have Aifib will start on a heparin gtt 05/08/17 for anticoagulation and once her RF improves will start her on a oral anti-coagulant. Patient may benefit from another medication for atrial fibrillation instead of metoprolol since her blood pressure drops and will appreciate cardiology input. Also we have assessed her fall risk in which she denies falling and so did her family. 05/09/17 patient is in normal sinus rhythm today rate was 72. 05/10/17 no new complaints today heart rate sinus rhythm. Denies any chest pain , patient is tolerating the metoprolol 12.5 mg twice daily, her blood pressure still a little low at times in the 90s but stable. Will DC her Molina today (2) Hypertension Qualifiers: Hypertension type: essential hypertension Qualified Code(s): I10 - Essential (primary) hypertension Is this a current diagnosis for this admission?: Yes (3) Acute renal failure Qualifiers: Acute renal failure type: unspecified Qualified Code(s): N17.9 - Acute kidney failure, unspecified Is this a current diagnosis for this admission?: Yes Plan: On admission patient had a sodium of 121, creatinine 4.17, GFR 13, calcium was 10.7, she denies having any issues with her kidneys states she was never told she had chronic kidney disease. She has been on Lasix and diuretics and high blood pressure medications for about 5 years. Also patient denies having any dementia she is currently on dementia medications and has been inconsistent with some of her history I suspect she has acute on chronic renal failure but slowly improving 05/09/17 Creatine down to 1.8 05/10/17 Will DC her Molina today patient had a potassium 5.2 will give some Kayexalate today. Creatinine was 1.8 was down to 1.6 yesterday sodium is much improved 132 (4) CAD (coronary artery disease) Qualifiers: Coronary Disease-Associated Artery/Lesion type: [place] artery [place] vs. transplanted heart: unspecified whether [place] or transplanted heart Associated angina: angina presence unspecified Qualified Code(s): I25.10 - Atherosclerotic heart disease of [place] coronary artery without angina pectoris Is this a current diagnosis for this admission?: Yes Plan: Patient has past medical history of coronary artery disease with stent placement. 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 Patient is unknown glucose and has sliding scale insulin ordered. Hemoglobin A1c was 8.5. She may need to have some of her medications adjusted accordingly. Blood sugars have remained fairly stable since she has been here (7) Hyponatremia Is this a current diagnosis for this admission?: Yes Plan: Initially sodium was 117 on admission. Recheck sodium is increased to 124. Continue to monitor and follow. Will hold her diuretics at this time to help improve her sodium levels. Back to baseline sodium is now 132.. Blood sugars have remained fairly stable since she has been here sodium is now 132. (8) Stented coronary artery Is this a current diagnosis for this admission?: Yes (9) Hypotension Qualifiers: Hypotension type: unspecified hypotension type Qualified Code(s): I95.9 - Hypotension, unspecified Is this a current diagnosis for this admission?: Yes - Time Time Spent with patient: 15-24 minutes Medications reviewed and adjusted accordingly: Yes Anticipated discharge: Home with Homehealth Within: within 48 hours
[2017-05-10 14:53] LABS: ANION GAP 12 (5-19); BLOOD UREA NITROGEN 28 mg/dL (7-20); CALCIUM 10.6 mg/dL (8.4-10.2); CARBON DIOXIDE 19 mmol/L (22-30); CHLORIDE 101 mmol/L (98-107); CREATININE RESULT 1.74 mg/dL (0.52-1.25); GLUCOSE 91 mg/dL (75-110); POTASSIUM 5.1 mmol/L (3.6-5.0); SODIUM 131.6 mmol/L (137-145)
[2017-05-10] MEDS: ATORVASTATIN CALCIUM 20 MG TABLET PO SCH (22:10)
[2017-05-10] MEDS: RISPERIDONE 1 MG TABLET PO SCH (22:13)
[2017-05-11 05:17] LABS: HEMATOCRIT 24.3 % (36.0-47.0); HGB HCT DIFFERENCE 0.3; MEAN CORPUSCULAR HGB CONC 33.9 g/dL (32.0-36.0); MEAN CORPUSCULAR VOLUME 77 fl (80-97); RED BLOOD COUNT 3.16 10^6/uL (3.72-5.28); RED CELL DISTRIBUTION WIDTH 14.5 % (11.5-14.0); WHITE BLOOD COUNT 5.2 10^3/uL (4.0-10.5)
[2017-05-11 05:21] LABS: HEMOGLOBIN 8.2 g/dL (12.0-15.5)
[2017-05-11 05:32] LABS: ANION GAP 8 (5-19); BLOOD UREA NITROGEN 27 mg/dL (7-20); CALCIUM 9.5 mg/dL (8.4-10.2); CARBON DIOXIDE 19 mmol/L (22-30); CHLORIDE 105 mmol/L (98-107); CREATININE RESULT 1.71 mg/dL (0.52-1.25); GLUCOSE 46 mg/dL (75-110); POTASSIUM 4.5 mmol/L (3.6-5.0); SODIUM 132.4 mmol/L (137-145)
[2017-05-11] MEDS: HEPARIN SOD (PORCINE) 1,000 UNIT/ML 10 ML VIAL IV PRN (07:13)
[2017-05-11] MEDS: LANSOPRAZOLE 30 MG TAB.RAP.DR PO SCH (09:20)
[2017-05-11] MEDS: OMEGA-3 ACID ETHYL ESTERS 1 GM CAPSULE PO SCH (09:20)
[2017-05-11] MEDS: HEPARIN SODIUM,PORCINE/D5W 25,000 UNIT/250 ML RTUINJ IV PRN (09:20)
[2017-05-11] MEDS: DONEPEZIL HCL 5 MG TABLET PO SCH (09:20)
[2017-05-11] MEDS: METOPROLOL TARTRATE 25 MG TABLET PO SCH ×2 (09:20→22:24)
[2017-05-11] MEDS: FERROUS SULFATE 325 MG TABLET PO SCH (09:20)
[2017-05-11] MEDS: SERTRALINE HCL 50 MG TABLET PO SCH (09:20)
[2017-05-11] MEDS: RANOLAZINE 500 MG TAB.SR.12H PO SCH ×2 (09:21→22:24)
[2017-05-11] MEDS: INSULIN GLARGINE,HUM.REC.ANLOG 300 UNIT/3 ML INSULN.PEN SUBCUT SCH ×2 (13:23→22:49)
[2017-05-11] MEDS ORDERED: HEPARIN SOD (PORCINE) 1,000 UNIT/ML 10 ML VIAL IV PRN (16:46)
--- NOTE | 2017-05-11 17:29 | PDOC PROGRESS REPORT ---
Subjective Progress Note for:: 05/11/17 Subjective:: This is a 67-year-old female Who was admitted for acute renal failure and her blood pressure was initially 60/33. Patient states she lives in [place] and is here visiting her son has been here for about a month. No family was present during my exam and initially her creatinine was 4.3 and her GFR was 13 but patient denies having a history of chronic renal disease. Also her initial sodium level was 117. Her sodium has increased to 124 today. Patient developed A. fib with RVR rate 130 in which is confirmed with EKG. Metoprolol 5 mg IV 1 was given a rate decreased to 80s. Echocardiogram was ordered and cardiology consult. Patient is pleasantly confused During the night of 05/06- patient some hypotension again reception clerk provider DC' d her metoprolol and she was given 250 cc bolus of normal saline. Again today patient A. fib with RVR and some p.o. metoprolol was reordered and was given. Echocardiogram ordered and cardiology consult and input appreciated. Patient's sodium level has increased to 125.9, creatinine is decreased to 2.44 with a GFR of 21. 05/08 Last night she had another episode of bradycardia. She was transferred to ICU was given a bolus of normal saline. Blood pressure came up to 120s over 60s. She was ordered cultures for possible underlying infection which I personally do not feel that her issue. She continues to be in A. fib but her rate is controlled at the moment. Lab work was obtained. And discussion with family present with both myself and Dr. Kong. We will transfer her to MICU , start heparin drip for A. fib per protocol with the plan of transitioning her to a another oral anticoagulant once her renal function normalizes. It is improving. Continue to monitor renal function 05/09/17 continues to went on a bed on MICU. Heparin drip per protocol. Creatinine was down to 1.8 continue to monitor in a.m. currently she is in sinus rhythm. Yesterday we had to decrease her metoprolol to 12.5 mg p.o. twice daily in which her blood pressure has remained stable and her heart rate is sinus. 05/10/17 patient denies any problems today Today patient had drop in hemoglobin from 11 to 8 . I am going to recheck her CBC after holding her IV fluids. And we will hold her heparin drip for now. Consult Dr. Escobedo in the a.m. for evaluation of her anemia patient denies any complaint of blood in her urine or stool. Per protocol she is to get a occult stool and occult urine today Physical Exam Vital Signs: Temp Pulse Resp BP Pulse Ox 98.9 F 77 18 108/54 L 97 05/11/17 12:42 05/11/17 12:42 05/11/17 12:42 05/11/17 12:53 05/11/17 12:42 Intake & Output 05/10/17 05/11/17 05/12/17 06:59 06:59 06:59 Intake Total 3984 3293 Output Total 3550 Balance 434 3293 Weight 97.1 kg 98.2 kg General appearance: PRESENT: no acute distress, well-developed, well-nourished Head exam: PRESENT: atraumatic, normocephalic Eye exam: PRESENT: conjunctiva pink, EOMI, PERRLA. ABSENT: scleral icterus Ear exam: PRESENT: normal external ear exam Mouth exam: PRESENT: moist, tongue midline Neck exam: ABSENT: carotid bruit, JVD, lymphadenopathy, thyromegaly Respiratory exam: PRESENT: clear to auscultation ricardo. ABSENT: rales, rhonchi, wheezes Cardiovascular exam: PRESENT: RRR. ABSENT: diastolic murmur, rubs, systolic murmur Pulses: PRESENT: normal dorsalis pedis pul Vascular exam: PRESENT: normal capillary refill GI/Abdominal exam: PRESENT: normal bowel sounds, soft. ABSENT: distended, guarding, mass, organolmegaly, rebound, tenderness Rectal exam: PRESENT: deferred Extremities exam: PRESENT: full ROM. ABSENT: calf tenderness, clubbing, pedal edema Neurological exam: PRESENT: alert, awake, oriented to person, oriented to place , oriented to time, oriented to situation, CN II-XII grossly intact. ABSENT: motor sensory deficit Psychiatric exam: PRESENT: appropriate affect, normal mood. ABSENT: homicidal ideation, suicidal ideation Skin exam: PRESENT: dry, intact, warm. ABSENT: cyanosis, rash Results Laboratory Results: 05/11/17 04:26 05/11/17 04:26 05/11/17 05/11/17 04:26 04:26 WBC 5.2 RBC 3.16 L Hgb 8.2 L D Hct 24.3 L MCV 77 L MCH 26.0 L MCHC 33.9 RDW 14.5 H Plt Count 239 Sodium 132.4 L Potassium 4.5 Chloride 105 Carbon Dioxide 19 L Anion Gap 8 BUN 27 H Creatinine 1.71 H Est GFR ( Amer) 36 L Est GFR (Non-Af Amer) 30 L Glucose 46 L Calcium 9.5 05/06/17 05/06/17 05/08/17 00:28 06:07 03:12 Creatine Kinase 133 CK-MB (CK-2) Troponin I < 0.012 0.013 05/08/17 05/08/17 05/08/17 03:12 08:42 08:42 Creatine Kinase 125 CK-MB (CK-2) 1.38 1.39 Troponin I < 0.012 < 0.012 Impressions: Head CT 05/05/17 16:50 IMPRESSION: Biparietal small vessel chronic appearing white matter disease. No CT evidence of acute ischemic change, acute intracranial hemorrhage, mass effect, or midline shift. EVIDENCE OF ACUTE STROKE: NO. Renal Ultrasound 05/06/17 00:00 IMPRESSION: No hydronephrosis. Chest X-Ray 05/08/17 00:00 IMPRESSION: No acute radiographic finding in the chest. Assessment & Plan - Diagnosis (1) Paroxysmal atrial fibrillation Is this a current diagnosis for this admission?: Yes (2) Hypertension Qualifiers: Hypertension type: essential hypertension Qualified Code(s): I10 - Essential (primary) hypertension Is this a current diagnosis for this admission?: Yes (3) Acute renal failure Qualifiers: Acute renal failure type: unspecified Qualified Code(s): N17.9 - Acute kidney failure, unspecified Is this a current diagnosis for this admission?: Yes (4) CAD (coronary artery disease) Qualifiers: Coronary Disease-Associated Artery/Lesion type: [place] artery [place] vs. transplanted heart: unspecified whether [place] or transplanted heart Associated angina: angina presence unspecified Qualified Code(s): I25.10 - Atherosclerotic heart disease of [place] coronary artery without angina pectoris Is this a current diagnosis for this admission?: Yes (5) Chest pain Qualifiers: Chest pain type: unspecified Qualified Code(s): R07.9 - Chest pain, unspecified Is this a current diagnosis for this admission?: Yes (6) Diabetes Qualifiers: Diabetes mellitus type: type 2 Diabetes mellitus complication status: with kidney complications Diabetes mellitus complication detail: with chronic kidney disease 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: unspecified hospital medical biller insulin use status Chronic kidney disease stage: unspecified stage Qualified Code(s): E11.22 - Type 2 diabetes mellitus with diabetic chronic kidney disease Is this a current diagnosis for this admission?: Yes (7) Hyponatremia Is this a current diagnosis for this admission?: Yes (8) Stented coronary artery Is this a current diagnosis for this admission?: Yes (9) Hypotension Qualifiers: Hypotension type: unspecified hypotension type Qualified Code(s): I95.9 - Hypotension, unspecified Is this a current diagnosis for this admission?: Yes - Plan Summary Plan Summary: Continue to monitor hemoglobin. Consult GI for possible EGD: If needed. I am concerned that this patient came from [place] and with pretty significant atrial fibrillation and she was not on anticoagulants. That makes me think that due to her underlying medical issues that no one in her family seems to know about and unfortunately the patient has some underlying dementia or due to her poor historian she just not aware of her reason why she is not on blood thinners. We asked the patient why she is not on blood thinners patient states she used to be because she used to be on iron and then she went to go get the shots but then they told her she did not need it anymore so she quit getting which makes me think she was anemic and getting Procrit not blood thinners.
[2017-05-11 17:59] LABS: HEMATOCRIT 26.8 % (36.0-47.0); HEMOGLOBIN 8.6 g/dL (12.0-15.5); MEAN CORPUSCULAR HEMOGLOBIN 24.7 pg (27.0-33.4); MEAN CORPUSCULAR HGB CONC 32.2 g/dL (32.0-36.0); MEAN CORPUSCULAR VOLUME 77 fl (80-97); RED CELL DISTRIBUTION WIDTH 14.9 % (11.5-14.0); WHITE BLOOD COUNT 6.9 10^3/uL (4.0-10.5)
--- NOTE | 2017-05-11 18:56 | PDOC CONSULTATION ---
Consultation Consult Date: 05/11/17 Consult reason:: RAINER History of Present Illness Admission Date/PCP: 05/05/17 21:26 History of Present Illness: RADHA HERNANDEZ is a 67 year old -Mong[place]ian female visiting her son from [place] with type 2 diabetes mellitus with peripheral neuropathy, difficult to control blood pressure, on multiple medications, hyperlipidemia, history of atrial fibrillation, with anticoagulant stopped earlier this year, known coronary artery disease, status post stent implant more than 5 years ago, but, by her account, no known underlying renal disease, who presents to the emergency room for evaluation of low blood pressure and acute kidney injury. Went to a local urgent care yesterday for complaints of mild headache and vision problems along with generalized weakness. Blood pressure there was reportedly 60/33. She was discharged to home, with instructions to hold her blood pressure medicines and return to acute care facility tomorrow. Went to the emergency room shortly after that with complaints of intermittent mild twitching of her lips, never having had this before, along with intermittent now resolved mild substernal chest tightness. Had nausea but no vomiting. No fever or chills. Has had a number of diarrheal stools over the last 2-3 days, without blood, two today. No friends or family with similar complaints. No abdominal pain. States a number of her medication dosages were increased by her primary care provider approximately a month ago. She is compliant with her medications. Emergency room physician did discuss the patient by phone with Dr. Santacruz, on- call adjunct professor of voice at [facility] when she arrived due to no nephrology coverage. Dr. Santacruz gave basic recommendations, but did not feel dialysis was warranted, and also did not specifically feel that transfer to a tertiary center was warranted. Over her stay her a-fib has been stabilized metoprolol with occasional episodes of hypotension. She also received fluids and slowly has shown improvement in RAINER. Currently anemic, but no complaints related to anemia. Past Medical History Cardiac Medical History: Reports: Atrial Fibrillation - History of same; anticoagulant DC'd spring 2016., Coronary Artery Disease - Stent 1 more than 5 years ago, Hyperlipidemia, Myocardial Infarction, Other - Patient describes having a cardiac cath and says clots removed. Denies: DVT, Pulmonary Embolism Pulmonary Medical History: Denies: Asthma, Chronic Obstructive Pulmonary Disease (COPD), Sleep Apnea EENT Medical History: Reports: Eyes - Glasses Denies: Ears, Throat Neurological Medical History: Reports: Ischemic CVA, Seizures - Distant history 1; never on antiepileptic, Other - Stroke several years ago, without residual aftereffects. Denies: Hemorrhagic CVA Endocrine Medical History: Reports: Diabetes Mellitus Type 2 GI Medical History: Reports: Peptic Ulcer Disease, Other - "Liver problems." History of bleeding ulcer. Denies: Cirrhosis, Gastroesophageal Reflux Disease, Hepatitis Musculoskeltal Medical History: Reports: Arthritis Skin Medical History: Reports: None Psychiatric Medical History: Denies: Alcohol Dependency, Depression, General Anxiety Disorder, Substance Abuse, Tobacco Dependency Infectious Medical History: Denies: Hepatitis B, Hepatitis C Past Surgical History Past Surgical History: Reports: Cardiac Catheterization - stents placed, Cholecystectomy, Coronary Stent - 1, more than 5 years ago, Hysterectomy, Orthopedic Surgery - Fracture left femur Social History Lives with: Family Smoking Status: Former Smoker Last Time Smoked: 44 years ago Frequency of Alcohol Use: None Drugs: None Hx Prescription Drug Abuse: No - Advance Directive Resuscitation Status: Full Code Family History Parental Family History Reviewed: No Children Family History Reviewed: No Sibling(s) Family History Reviewed.: No Medication/Allergy Home Medications: Chlorthalidone [Chlorthalidone 50 mg Tablet] 50 mg PO DAILY 05/05/17 Donepezil HCl [Aricept 5 mg Tablet] 5 mg PO DAILY 05/05/17 Ferrous Sulfate [Feosol 325 mg Tablet] 325 mg PO DAILY 05/05/17 Furosemide [Lasix 40 mg Tablet] 40 mg PO BID 05/05/17 Insulin Glargine,Hum.rec.anlog [Lantus Solostar] 25 unit SQ Q12 05/05/17 Lisinopril [Prinivil] 20 mg PO DAILY 05/05/17 Methocarbamol [Robaxin 500 mg Tablet] 500 mg PO Q8HP PRN 05/05/17 Metoprolol Succinate [Toprol Xl 25 mg Tab.sr] 25 mg PO DAILY 05/05/17 [place]-3 Fatty Acids [[place]-3] 1,000 mg PO DAILY 05/05/17 Omeprazole 40 mg PO DAILY 05/05/17 Risperidone [Risperdal] 2 mg PO QHS 05/05/17 Sertraline HCl [Zoloft 50 mg Tablet] 100 mg PO DAILY 05/05/17 Spironolactone [Aldactone] 50 mg PO Q12 05/05/17 Atorvastatin Calcium [Lipitor 20 mg Tablet] 20 mg PO QHS #30 tablet 05/06/17 Allergies/Adverse Reactions: Sulfa (Sulfonamide Antibiotics) Allergy (Verified 05/05/17 16:51) Review of Systems Constitutional: PRESENT: headache(s). ABSENT: chills, fever(s), weakness Eyes: PRESENT: visual disturbances Ears: ABSENT: hearing changes Nose, Mouth, and Throat: PRESENT: headache(s). ABSENT: vertigo Cardiovascular: PRESENT: dyspnea on exertion, palpitations. ABSENT: chest pain , edema, orthropnea Respiratory: PRESENT: dyspnea. ABSENT: cough, sputum Gastrointestinal: PRESENT: diarrhea, nausea. ABSENT: abdominal pain, constipation, vomiting Genitourinary: ABSENT: difficulty urinating, dysuria, hematuria Musculoskeletal: ABSENT: back pain, joint swelling, muscle weakness Neurological: PRESENT: numbness. ABSENT: weakness Physical Exam Vital Signs: Temp Pulse Resp BP Pulse Ox 98.9 F 76 18 108/54 L 97 05/11/17 12:42 05/11/17 14:00 05/11/17 12:42 05/11/17 12:53 05/11/17 12:42 Intake & Output 05/10/17 05/11/17 05/12/17 06:59 06:59 06:59 Intake Total 3984 3293 Output Total 3550 Balance 434 3293 Weight 97.1 kg 98.2 kg General appearance: PRESENT: no acute distress, well-developed, well-nourished Head exam: PRESENT: atraumatic, normocephalic Eye exam: PRESENT: EOMI, PERRLA. ABSENT: scleral icterus Mouth exam: PRESENT: moist, tongue midline Neck exam: PRESENT: full ROM. ABSENT: carotid bruit, JVD, thyromegaly Respiratory exam: PRESENT: clear to auscultation ricardo. ABSENT: accessory muscle use, chest wall tenderness, crackles, wheezes Cardiovascular exam: PRESENT: irregular rhythm, systolic murmur GI/Abdominal exam: PRESENT: normal bowel sounds, soft. ABSENT: diminished bowel sounds, distended, guarding, rebound, rigid, tenderness Extremities exam: ABSENT: pedal edema, tenderness Musculoskeletal exam: PRESENT: normal inspection. ABSENT: deformity, tenderness Neurological exam: PRESENT: alert, awake, oriented to person, oriented to place , oriented to time, oriented to situation Psychiatric exam: PRESENT: normal mood. ABSENT: anxious, depressed Skin exam: PRESENT: dry, intact, warm. ABSENT: cyanosis, rash Results Laboratory Results: 05/11/17 17:40 05/11/17 04:26 05/11/17 05/11/17 05/11/17 04:26 04:26 17:40 WBC 5.2 6.9 RBC 3.16 L 3.50 L Hgb 8.2 L D 8.6 L Hct 24.3 L 26.8 L MCV 77 L 77 L MCH 26.0 L 24.7 L MCHC 33.9 32.2 RDW 14.5 H 14.9 H Plt Count 239 237 Sodium 132.4 L Potassium 4.5 Chloride 105 Carbon Dioxide 19 L Anion Gap 8 BUN 27 H Creatinine 1.71 H Est GFR ( Amer) 36 L Est GFR (Non-Af Amer) 30 L Glucose 46 L Calcium 9.5 05/06/17 05/06/17 05/08/17 00:28 06:07 03:12 Creatine Kinase 133 CK-MB (CK-2) Troponin I < 0.012 0.013 05/08/17 05/08/17 05/08/17 03:12 08:42 08:42 Creatine Kinase 125 CK-MB (CK-2) 1.38 1.39 Troponin I < 0.012 < 0.012 Impressions: Head CT 05/05/17 16:50 IMPRESSION: Biparietal small vessel chronic appearing white matter disease. No CT evidence of acute ischemic change, acute intracranial hemorrhage, mass effect, or midline shift. EVIDENCE OF ACUTE STROKE: NO. Renal Ultrasound 05/06/17 00:00 IMPRESSION: No hydronephrosis. Chest X-Ray 05/08/17 00:00 IMPRESSION: No acute radiographic finding in the chest. Assessment & Plan - Diagnosis (1) RAINER (acute kidney injury) Plan: Due to hypotension, looks to be showing improvement. Recommend continuing good oral and IV hydration. Unsure if underlining chronic kidney disease. Due to comorbities I am suspicious of underling CKD. Will have retrieve records from primary care in [place]. (2) Anemia Qualifiers: Anemia type: iron deficiency Is this a current diagnosis for this admission?: Yes Plan: will draw iron panel and start PO iron if needed (3) Diabetes Qualifiers: Diabetes mellitus type: type 2 Diabetes mellitus complication status: with kidney complications Diabetes mellitus complication detail: with chronic kidney disease Diabetes mellitus roasterman insulin use: unspecified intermediate insulin use status Chronic kidney disease stage: unspecified stage Qualified Code(s): E11.22 - Type 2 diabetes mellitus with diabetic chronic kidney disease Is this a current diagnosis for this admission?: Yes Plan: controlled (4) Hypercalcemia Is this a current diagnosis for this admission?: Yes Plan: currently stable, looks to have been elevated due to dehydration (5) Hypertension Qualifiers: Hypertension type: essential hypertension Qualified Code(s): I10 - Essential (primary) hypertension Is this a current diagnosis for this admission?: Yes Plan: looks to be controlled (6) Hyponatremia Is this a current diagnosis for this admission?: Yes Plan: looks to be returning to normal, would recommend fluid restriction of 1L per a day if sodium starts to decrease (7) Hypotension Plan: currently stable, continue fluids.
[2017-05-11 20:01] LABS: ABSOLUTE EOSINOPHILS # (AUTO) 0.2 10^3/uL (0.0-0.6); ABSOLUTE LYMPHOCYTES (AUTO) 1.2 10^3/uL (0.5-4.7); ABSOLUTE MONOCYTES (AUTO) 0.5 10^3/uL (0.1-1.4); ABSOLUTE NEUT (AUTO) 4.6 10^3/uL (1.7-8.2); BASOPHILS % (AUTO) 0.7 % (0-2); HEMATOCRIT 25.4 % (36.0-47.0); HEMOGLOBIN 8.3 g/dL (12.0-15.5); HGB HCT DIFFERENCE -0.5; LYMPHOCYTES % (AUTO) 18.3 % (13-45); MEAN CORPUSCULAR HEMOGLOBIN 25.2 pg (27.0-33.4); MEAN CORPUSCULAR HGB CONC 32.8 g/dL (32.0-36.0); MEAN CORPUSCULAR VOLUME 77 fl (80-97); RED BLOOD COUNT 3.31 10^6/uL (3.72-5.28); RED CELL DISTRIBUTION WIDTH 14.6 % (11.5-14.0); WHITE BLOOD COUNT 6.5 10^3/uL (4.0-10.5)
[2017-05-11 20:37] LABS: APPEARANCE,URINE SLIGHTLY-CLOUDY; BILIRUBIN,URINE NEGATIVE (NEGATIVE); GLUCOSE, URINE NEGATIVE (NEGATIVE); KETONES,URINE NEGATIVE (NEGATIVE); LEUKOCYTE ESTERASE,URINE MODERATE (NEGATIVE); NITRITE,URINE NEGATIVE (NEGATIVE); PROTEIN,URINE NEGATIVE (NEGATIVE); URINE SPECIFIC GRAVITY 1.005; UROBILINOGEN,URINE NEGATIVE mg/dL (<2.0)
--- NOTE | 2017-05-11 21:25 | EKG REPORT ---
SEVERITY:- BORDERLINE ECG - SINUS RHYTHM BORDERLINE T WAVE ABNORMALITIES : Confirmed by: Ellie Osman 11-May-2017 21:24:50
[2017-05-11] MEDS: RISPERIDONE 1 MG TABLET PO SCH (22:24)
[2017-05-11] MEDS: ATORVASTATIN CALCIUM 20 MG TABLET PO SCH (22:24)
[2017-05-12 01:18] LABS: ABSOLUTE EOSINOPHILS # (AUTO) 0.2 10^3/uL (0.0-0.6); ABSOLUTE LYMPHOCYTES (AUTO) 1.1 10^3/uL (0.5-4.7); ABSOLUTE MONOCYTES (AUTO) 0.5 10^3/uL (0.1-1.4); ABSOLUTE NEUT (AUTO) 3.8 10^3/uL (1.7-8.2); BASOPHILS % (AUTO) 0.7 % (0-2); EOSINOPHILS % (AUTO) 3.9 % (0-6); HEMATOCRIT 23.3 % (36.0-47.0); HGB HCT DIFFERENCE 0.1; LYMPHOCYTES % (AUTO) 18.9 % (13-45); MEAN CORPUSCULAR HEMOGLOBIN 25.6 pg (27.0-33.4); MEAN CORPUSCULAR HGB CONC 33.5 g/dL (32.0-36.0); MEAN CORPUSCULAR VOLUME 76 fl (80-97); MONOCYTES % (AUTO) 8.5 % (3-13); RED BLOOD COUNT 3.05 10^6/uL (3.72-5.28); RED CELL DISTRIBUTION WIDTH 14.6 % (11.5-14.0); WHITE BLOOD COUNT 5.6 10^3/uL (4.0-10.5)
[2017-05-12 01:28] LABS: HEMOGLOBIN 7.8 g/dL (12.0-15.5)
[2017-05-12] MEDS ORDERED: ACETAMINOPHEN 325 MG TABLET PO PRN (01:46)
[2017-05-12] MEDS ORDERED: FUROSEMIDE 20 MG TABLET PO PRN (01:46)
[2017-05-12] MEDS ORDERED: NORMAL SALINE 250 ML IV PRN ×2 (01:46)
[2017-05-12] MEDS: RANOLAZINE 500 MG TAB.SR.12H PO SCH ×2 (09:50→21:08)
[2017-05-12] MEDS: LANSOPRAZOLE 30 MG TAB.RAP.DR PO SCH (09:50)
[2017-05-12] MEDS: OMEGA-3 ACID ETHYL ESTERS 1 GM CAPSULE PO SCH (09:55)
[2017-05-12] MEDS: SERTRALINE HCL 50 MG TABLET PO SCH (09:56)
[2017-05-12] MEDS: FERROUS SULFATE 325 MG TABLET PO SCH (09:57)
[2017-05-12] MEDS: DONEPEZIL HCL 5 MG TABLET PO SCH (09:57)
[2017-05-12] MEDS: METOPROLOL TARTRATE 25 MG TABLET PO SCH ×2 (09:57→21:08)
[2017-05-12] MEDS: INSULIN GLARGINE,HUM.REC.ANLOG 300 UNIT/3 ML INSULN.PEN SUBCUT SCH ×2 (10:00→22:35)
--- NOTE | 2017-05-12 12:42 | PDOC PROGRESS REPORT ---
Subjective Progress Note for:: 05/12/17 Subjective:: Patient is seen on morning rounds. She is resting in bed comfortably having just finished her breakfast and is nearing completion of her first unit of packed red blood cells. She reports occasional palpitations with activity, but none noted while at rest. She denies dizziness, headache, chest pain, dyspnea, and orthopnea. She denies noticeable active bleeding; denies hematuria, melena, and hematchezia. She reports having had a normal colonoscopy approximately [address] Win in [facility]. She has no other questions or concerns today. Physical Exam Vital Signs: Temp Pulse Resp BP Pulse Ox 97.9 F 70 18 109/54 L 100 05/12/17 10:17 05/12/17 10:17 05/12/17 10:17 05/12/17 10:17 05/12/17 10:17 Intake & Output 05/11/17 05/12/17 05/13/17 06:59 06:59 06:59 Intake Total 3293 3413 450 Balance 3293 3413 450 Weight 98.2 kg 98.5 kg General appearance: PRESENT: no acute distress, cooperative, obese, well- developed, well-nourished Head exam: PRESENT: atraumatic, normocephalic Eye exam: PRESENT: conjunctiva pink, EOMI, PERRLA. ABSENT: scleral icterus Ear exam: PRESENT: normal external ear exam Mouth exam: PRESENT: moist, tongue midline Neck exam: ABSENT: carotid bruit, JVD, lymphadenopathy, thyromegaly Respiratory exam: PRESENT: clear to auscultation ricardo, symmetrical, unlabored. ABSENT: rales, rhonchi, tachypnea, wheezes Cardiovascular exam: PRESENT: RRR, +S1, +S2. ABSENT: diastolic murmur, rubs, systolic murmur Pulses: PRESENT: normal dorsalis pedis pul Vascular exam: PRESENT: normal capillary refill GI/Abdominal exam: PRESENT: normal bowel sounds, soft. ABSENT: distended, guarding, mass, organolmegaly, rebound, tenderness Rectal exam: PRESENT: deferred Extremities exam: PRESENT: full ROM, +1 edema - BLE +1 pitting edema. ABSENT: calf tenderness, clubbing Neurological exam: PRESENT: alert, awake, oriented to person, oriented to place , oriented to time, oriented to situation, CN II-XII grossly intact. ABSENT: motor sensory deficit Psychiatric exam: PRESENT: appropriate affect, normal mood. ABSENT: homicidal ideation, suicidal ideation Skin exam: PRESENT: dry, intact, warm. ABSENT: cyanosis, rash Results Laboratory Results: 05/12/17 01:00 05/11/17 04:26 05/11/17 05/11/17 05/11/17 17:32 17:40 19:32 WBC 6.9 RBC 3.50 L Hgb 8.6 L Hct 26.8 L MCV 77 L MCH 24.7 L MCHC 32.2 RDW 14.9 H Plt Count 237 Seg Neutrophils % Lymphocytes % Monocytes % Eosinophils % Basophils % Absolute Neutrophils Absolute Lymphocytes Absolute Monocytes Absolute Eosinophils Absolute Basophils Urine Color YELLOW Urine Appearance SLIGHTLY-CLOUDY Urine pH 5.0 Ur Specific [place] 1.005 Urine Protein NEGATIVE Urine Glucose (UA) NEGATIVE Urine Ketones NEGATIVE Urine Blood NEGATIVE Urine Nitrite NEGATIVE Ur Leukocyte Esterase MODERATE H Urine WBC (Auto) 39 Urine RBC (Auto) 1 Blood Type O POSITIVE Antibody Screen NEGATIVE 05/11/17 05/12/17 19:32 01:00 WBC 6.5 5.6 RBC 3.31 L 3.05 L Hgb 8.3 L 7.8 L Hct 25.4 L 23.3 L MCV 77 L 76 L MCH 25.2 L 25.6 L MCHC 32.8 33.5 RDW 14.6 H 14.6 H Plt Count 244 194 Seg Neutrophils % 70.0 68.0 Lymphocytes % 18.3 18.9 Monocytes % 8.0 8.5 Eosinophils % 3.0 3.9 Basophils % 0.7 0.7 Absolute Neutrophils 4.6 3.8 Absolute Lymphocytes 1.2 1.1 Absolute Monocytes 0.5 0.5 Absolute Eosinophils 0.2 0.2 Absolute Basophils 0.0 0.0 Urine Color Urine Appearance Urine pH Ur Specific [place] Urine Protein Urine Glucose (UA) Urine Ketones Urine Blood Urine Nitrite Ur Leukocyte Esterase Urine WBC (Auto) Urine RBC (Auto) Blood Type Antibody Screen 05/06/17 05/06/17 05/08/17 00:28 06:07 03:12 Creatine Kinase 133 CK-MB (CK-2) Troponin I < 0.012 0.013 05/08/17 05/08/17 05/08/17 03:12 08:42 08:42 Creatine Kinase 125 CK-MB (CK-2) 1.38 1.39 Troponin I < 0.012 < 0.012 Impressions: Head CT 05/05/17 16:50 IMPRESSION: Biparietal small vessel chronic appearing white matter disease. No CT evidence of acute ischemic change, acute intracranial hemorrhage, mass effect, or midline shift. EVIDENCE OF ACUTE STROKE: NO. Renal Ultrasound 05/06/17 00:00 IMPRESSION: No hydronephrosis. Chest X-Ray 05/08/17 00:00 IMPRESSION: No acute radiographic finding in the chest. Assessment & Plan - Diagnosis (1) RAINER (acute kidney injury) Plan: Patient initially admitted with Creatinine of 4.69. Pt is has a history of diabetes and hypertension; likely has a component of chronic kidney disease. Acute kidney injury is likely secondary to hypotension. Creatinine has gradually improved and is now stable at 1.71. 1- Appreciate Nephrology consultation and recommendations 2- Monitor blood pressure; IVF held 2/2 anemia (acute on chronic w/ hemodilution ). Receiving 2 units PRBC today. 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 Pt with 8 kg wt gain this admission s/p receiving 7 L IV fluids for RAINER. Initial Hgb 11.3, down to 7.8 this am. and now receiving 2 units PRBC. UA negative for blood; Guiac pending. Normal colonoscopy 2 years ago per patient. Anticipate improvement in blood pressure and possibly renal function with replacement. 1- Transfuse 2 units PRBC 2- Serial CBC 3- Continue iron supplementation 4- Appreciate Nephrology's input w/ regard to kidney disease (3) CAD (coronary artery disease) Qualifiers: Coronary Disease-Associated Artery/Lesion type: [place] artery [place] vs. transplanted heart: unspecified whether [place] or transplanted heart Associated angina: angina presence unspecified Qualified Code(s): I25.10 - Atherosclerotic heart disease of [place] coronary artery without angina pectoris Is this a current diagnosis for this admission?: Yes (4) Paroxysmal atrial fibrillation Is this a current diagnosis for this admission?: Yes Plan: Pt with A. fib and RVR; now in sinus rhythm. 1- Appreciate Cardiology consultation 2- Continue Metoprolol 12.5 mg BID; will titrate up as BP allows 3- Holding anticoagulants 2/2 acute/chronic anemia (5) Diabetes Qualifiers: Diabetes mellitus type: type 2 Diabetes mellitus complication status: with kidney complications Diabetes mellitus complication detail: with chronic kidney disease Diabetes mellitus termite inspector insulin use: unspecified termite inspector insulin use status Chronic kidney disease stage: unspecified stage Qualified Code(s): E11.22 - Type 2 diabetes mellitus with diabetic chronic kidney disease Is this a current diagnosis for this admission?: Yes Plan: Hypoglycemic event noted overnight; bgl 53. This is the third hypoglycemic event. Average glucose in the 80s. Will adjust Lantus today. 1- Consistent carb diet 2- Accuchecks ACHS 3- Lantus 10 units BID; reduced from 20 units BID 4- Humulin for SSI 5- Appreciate RD recommendations (6) Hypotension Qualifiers: Hypotension type: unspecified hypotension type Qualified Code(s): I95.9 - Hypotension, unspecified Is this a current diagnosis for this admission?: Yes Plan: Improved. Afib with RVR now converted to NSR, on low dose metoprolol. Has received IVF and blood products scheduled for today. Cortisol and TSH levels normal. 1- Appreciate cardiology consultation and recommendations 2- Continue metoprolol 3- MARIA INES hose 4- Fall risk (7) Hyponatremia Is this a current diagnosis for this admission?: Yes Plan: Improving. Initial Na 117.4 now 132.4 after IVF. Will continue to monitor. - Time Time Spent with patient: 35 or more minutes Medications reviewed and adjusted accordingly: Yes
[2017-05-12 14:10] LABS: ABSOLUTE EOSINOPHILS # (AUTO) 0.2 10^3/uL (0.0-0.6); ABSOLUTE LYMPHOCYTES (AUTO) 0.9 10^3/uL (0.5-4.7); ABSOLUTE MONOCYTES (AUTO) 0.5 10^3/uL (0.1-1.4); BASOPHILS % (AUTO) 0.4 % (0-2); EOSINOPHILS % (AUTO) 2.9 % (0-6); HEMATOCRIT 32.1 % (36.0-47.0); LYMPHOCYTES % (AUTO) 11.5 % (13-45); MEAN CORPUSCULAR HEMOGLOBIN 25.6 pg (27.0-33.4); MEAN CORPUSCULAR HGB CONC 33.3 g/dL (32.0-36.0); MEAN CORPUSCULAR VOLUME 77 fl (80-97); RED BLOOD COUNT 4.18 10^6/uL (3.72-5.28); RED CELL DISTRIBUTION WIDTH 15.4 % (11.5-14.0); SEGMENTED NEUTROPHILS % (AUTO) 78.2 % (42-78); WHITE BLOOD COUNT 7.7 10^3/uL (4.0-10.5)
[2017-05-12 14:13] LABS: HEMOGLOBIN 10.7 g/dL (12.0-15.5)
[2017-05-12 15:51] LABS: ANION GAP 11 (5-19); BLOOD UREA NITROGEN 24 mg/dL (7-20); CALCIUM 9.6 mg/dL (8.4-10.2); CARBON DIOXIDE 19 mmol/L (22-30); CHLORIDE 102 mmol/L (98-107); CREATININE RESULT 1.81 mg/dL (0.52-1.25); GLUCOSE 110 mg/dL (75-110); POTASSIUM 4.7 mmol/L (3.6-5.0)
--- NOTE | 2017-05-12 19:37 | PDOC PROGRESS REPORT ---
Subjective Progress Note for:: 05/12/17 Subjective:: Patient was seen sitting comfortably in her bed. See was alert and oriented x3. She has no current concerns or complaints. She denies chest pain, heart palpitations, SOB, change in urination. Physical Exam Vital Signs: Temp Pulse Resp BP Pulse Ox 98.3 F 68 18 106/52 L 99 05/12/17 13:38 05/12/17 14:00 05/12/17 13:38 05/12/17 13:38 05/12/17 13:38 Intake & Output 05/11/17 05/12/17 05/13/17 06:59 06:59 06:59 Intake Total 3293 3413 3539 Balance 3293 3413 3539 Weight 98.2 kg 98.5 kg General appearance: PRESENT: no acute distress, well-developed, well-nourished Head exam: PRESENT: atraumatic, normocephalic Mouth exam: PRESENT: moist, tongue midline Neck exam: PRESENT: full ROM. ABSENT: JVD, tracheal deviation Respiratory exam: PRESENT: clear to auscultation ricardo. ABSENT: accessory muscle use, chest wall tenderness, crackles, rales, wheezes Cardiovascular exam: PRESENT: irregular rhythm, systolic murmur GI/Abdominal exam: PRESENT: normal bowel sounds, soft. ABSENT: diminished bowel sounds Extremities exam: PRESENT: pedal edema - -trrace+. ABSENT: tenderness Musculoskeletal exam: PRESENT: normal inspection. ABSENT: deformity, tenderness Neurological exam: PRESENT: alert, awake, oriented to person, oriented to place , oriented to time, oriented to situation Psychiatric exam: PRESENT: appropriate affect, normal mood Skin exam: PRESENT: dry, intact, warm Results Laboratory Results: 05/12/17 13:47 05/12/17 14:44 05/11/17 05/11/17 05/11/17 17:32 19:32 19:32 WBC 6.5 RBC 3.31 L Hgb 8.3 L Hct 25.4 L MCV 77 L MCH 25.2 L MCHC 32.8 RDW 14.6 H Plt Count 244 Seg Neutrophils % 70.0 Lymphocytes % 18.3 Monocytes % 8.0 Eosinophils % 3.0 Basophils % 0.7 Absolute Neutrophils 4.6 Absolute Lymphocytes 1.2 Absolute Monocytes 0.5 Absolute Eosinophils 0.2 Absolute Basophils 0.0 Sodium Potassium Chloride Carbon Dioxide Anion Gap BUN Creatinine Est GFR ( Amer) Est GFR (Non-Af Amer) Glucose Calcium Iron TIBC % Saturation Ferritin Urine Color YELLOW Urine Appearance SLIGHTLY-CLOUDY Urine pH 5.0 Ur Specific [place] 1.005 Urine Protein NEGATIVE Urine Glucose (UA) NEGATIVE Urine Ketones NEGATIVE Urine Blood NEGATIVE Urine Nitrite NEGATIVE Ur Leukocyte Esterase MODERATE H Urine WBC (Auto) 39 Urine RBC (Auto) 1 Stool Occult Blood Blood Type O POSITIVE Antibody Screen NEGATIVE 05/12/17 05/12/17 05/12/17 01:00 13:47 14:25 WBC 5.6 7.7 RBC 3.05 L 4.18 Hgb 7.8 L 10.7 L D Hct 23.3 L 32.1 L MCV 76 L 77 L MCH 25.6 L 25.6 L MCHC 33.5 33.3 RDW 14.6 H 15.4 H Plt Count 194 216 Seg Neutrophils % 68.0 78.2 H Lymphocytes % 18.9 11.5 L Monocytes % 8.5 7.0 Eosinophils % 3.9 2.9 Basophils % 0.7 0.4 Absolute Neutrophils 3.8 6.0 Absolute Lymphocytes 1.1 0.9 Absolute Monocytes 0.5 0.5 Absolute Eosinophils 0.2 0.2 Absolute Basophils 0.0 0.0 Sodium Potassium Chloride Carbon Dioxide Anion Gap BUN Creatinine Est GFR ( Amer) Est GFR (Non-Af Amer) Glucose Calcium Iron TIBC % Saturation Ferritin Urine Color Urine Appearance Urine pH Ur Specific [place] Urine Protein Urine Glucose (UA) Urine Ketones Urine Blood Urine Nitrite Ur Leukocyte Esterase Urine WBC (Auto) Urine RBC (Auto) Stool Occult Blood NEGATIVE Blood Type Antibody Screen 05/12/17 14:44 WBC RBC Hgb Hct MCV MCH MCHC RDW Plt Count Seg Neutrophils % Lymphocytes % Monocytes % Eosinophils % Basophils % Absolute Neutrophils Absolute Lymphocytes Absolute Monocytes Absolute Eosinophils Absolute Basophils Sodium 132.0 L Potassium 4.7 Chloride 102 Carbon Dioxide 19 L Anion Gap 11 BUN 24 H Creatinine 1.81 H Est GFR ( Amer) 34 L Est GFR (Non-Af Amer) 28 L Glucose 110 Calcium 9.6 Iron 145.3 TIBC 291 % Saturation 50 Ferritin 202.00 Urine Color Urine Appearance Urine pH Ur Specific [place] Urine Protein Urine Glucose (UA) Urine Ketones Urine Blood Urine Nitrite Ur Leukocyte Esterase Urine WBC (Auto) Urine RBC (Auto) Stool Occult Blood Blood Type Antibody Screen 05/06/17 05/06/17 05/08/17 00:28 06:07 03:12 Creatine Kinase 133 CK-MB (CK-2) Troponin I < 0.012 0.013 05/08/17 05/08/17 05/08/17 03:12 08:42 08:42 Creatine Kinase 125 CK-MB (CK-2) 1.38 1.39 Troponin I < 0.012 < 0.012 Impressions: Head CT 05/05/17 16:50 IMPRESSION: Biparietal small vessel chronic appearing white matter disease. No CT evidence of acute ischemic change, acute intracranial hemorrhage, mass effect, or midline shift. EVIDENCE OF ACUTE STROKE: NO. Renal Ultrasound 05/06/17 00:00 IMPRESSION: No hydronephrosis. Chest X-Ray 05/08/17 00:00 IMPRESSION: No acute radiographic finding in the chest. Assessment & Plan - Diagnosis (1) RAINER (acute kidney injury) Plan: Looks to be stable, strongly suspicious of this being her baseline. Would d/c IV fluids and continue rehydrating orally. Would like her to follow in [address] Bowser or me as outpatient if she remains in [place]. If she goes back to [place] I would recommend her PCP refer her to a channel man for follow up. (2) Anemia Qualifiers: Anemia type: iron deficiency Is this a current diagnosis for this admission?: Yes Plan: iron panel is normal, if she keeps dropping she may need epogen. (3) Diabetes Qualifiers: Diabetes mellitus type: type 2 Diabetes mellitus complication status: with kidney complications Diabetes mellitus complication detail: with chronic kidney disease Diabetes mellitus fdc insulin use: unspecified fdc insulin use status Chronic kidney disease stage: unspecified stage Qualified Code(s): E11.22 - Type 2 diabetes mellitus with diabetic chronic kidney disease Is this a current diagnosis for this admission?: Yes Plan: controlled (4) Hypercalcemia Is this a current diagnosis for this admission?: Yes Plan: stable (5) Hypertension Qualifiers: Hypertension type: essential hypertension Qualified Code(s): I10 - Essential (primary) hypertension Is this a current diagnosis for this admission?: Yes Plan: looks to be controlled/low (6) CKD stage 3 secondary to diabetes Plan: Highly suspicious of CKD due to comorbities. Will need follow up as out patient. (7) Hyponatremia Is this a current diagnosis for this admission?: Yes Plan: looks to be returning to normal, still recommend fluid restriction of 1L per a day if sodium starts to decrease (8) Hypotension Qualifiers: Hypotension type: unspecified hypotension type Qualified Code(s): I95.9 - Hypotension, unspecified Is this a current diagnosis for this admission?: Yes Plan: currently stable, continue oral fluids.
[2017-05-12] MEDS: ATORVASTATIN CALCIUM 20 MG TABLET PO SCH (21:08)
[2017-05-12] MEDS: RISPERIDONE 1 MG TABLET PO SCH (21:09)
[2017-05-13 05:06] LABS: HEMATOCRIT 28.8 % (36.0-47.0); HEMOGLOBIN 9.8 g/dL (12.0-15.5); HGB HCT DIFFERENCE 0.6; MEAN CORPUSCULAR HEMOGLOBIN 25.8 pg (27.0-33.4); MEAN CORPUSCULAR VOLUME 76 fl (80-97); RED CELL DISTRIBUTION WIDTH 15.3 % (11.5-14.0)
[2017-05-13 05:35] LABS: ANION GAP 8 (5-19); BLOOD UREA NITROGEN 26 mg/dL (7-20); CALCIUM 9.6 mg/dL (8.4-10.2); CARBON DIOXIDE 21 mmol/L (22-30); CHLORIDE 105 mmol/L (98-107); CREATININE RESULT 1.78 mg/dL (0.52-1.25); GLUCOSE 73 mg/dL (75-110); SODIUM 133.6 mmol/L (137-145)
[2017-05-13] MEDS: METOPROLOL TARTRATE 25 MG TABLET PO SCH ×2 (10:02→21:33)
[2017-05-13] MEDS: LANSOPRAZOLE 30 MG TAB.RAP.DR PO SCH (10:02)
[2017-05-13] MEDS: OMEGA-3 ACID ETHYL ESTERS 1 GM CAPSULE PO SCH (10:03)
[2017-05-13] MEDS: FERROUS SULFATE 325 MG TABLET PO SCH (10:03)
[2017-05-13] MEDS: SERTRALINE HCL 50 MG TABLET PO SCH (10:03)
[2017-05-13] MEDS: RANOLAZINE 500 MG TAB.SR.12H PO SCH ×2 (10:03→21:33)
[2017-05-13] MEDS: DONEPEZIL HCL 5 MG TABLET PO SCH (10:03)
[2017-05-13] MEDS: INSULIN GLARGINE,HUM.REC.ANLOG 300 UNIT/3 ML INSULN.PEN SUBCUT SCH ×2 (10:03→22:06)
--- NOTE | 2017-05-13 11:57 | PDOC PROGRESS REPORT ---
Subjective Progress Note for:: 05/13/17 Subjective:: Patient is seen on morning rounds. She is resting in bed comfortably having just finished her breakfast. She states that her palpitations have resolved. She has been ambulating in room , to bathroom, without incidences of dizziness or weakness. Overall, she reports that she is feeling much better. She denies dizziness, headache, chest pain, dyspnea, and orthopnea. She denies noticeable active bleeding; denies hematuria, melena, and hematchezia. She has no other questions or concerns today. Physical Exam Vital Signs: Temp Pulse Resp BP Pulse Ox 98.7 F 71 20 104/41 L 100 05/13/17 07:19 05/13/17 07:19 05/13/17 07:19 05/13/17 07:19 05/13/17 07:19 Intake & Output 05/12/17 05/13/17 05/14/17 06:59 06:59 06:59 Intake Total 3413 4259 Output Total 0 Balance 3413 4259 Weight 98.5 kg 100.1 kg 100.1 kg General appearance: PRESENT: no acute distress, well-developed, well-nourished, other - overweight Head exam: PRESENT: atraumatic, normocephalic Eye exam: PRESENT: conjunctiva pink, EOMI, PERRLA. ABSENT: scleral icterus Ear exam: PRESENT: normal external ear exam Mouth exam: PRESENT: moist, tongue midline Neck exam: ABSENT: carotid bruit, JVD, lymphadenopathy, thyromegaly Respiratory exam: PRESENT: clear to auscultation ricardo, symmetrical, unlabored. ABSENT: rales, rhonchi, wheezes Cardiovascular exam: PRESENT: RRR, +S1, +S2. ABSENT: diastolic murmur, rubs, systolic murmur, tachycardia Pulses: PRESENT: normal dorsalis pedis pul Vascular exam: PRESENT: normal capillary refill GI/Abdominal exam: PRESENT: normal bowel sounds, soft. ABSENT: distended, guarding, mass, organolmegaly, rebound, tenderness Rectal exam: PRESENT: deferred Extremities exam: PRESENT: full ROM. ABSENT: calf tenderness, clubbing, pedal edema Neurological exam: PRESENT: alert, awake, oriented to person, oriented to place , oriented to time, oriented to situation, CN II-XII grossly intact. ABSENT: motor sensory deficit Psychiatric exam: PRESENT: appropriate affect, normal mood. ABSENT: homicidal ideation, suicidal ideation Skin exam: PRESENT: dry, intact, warm. ABSENT: cyanosis, rash Results Laboratory Results: 05/13/17 04:13 05/13/17 04:13 05/12/17 05/12/17 05/12/17 13:47 14:25 14:44 WBC 7.7 RBC 4.18 Hgb 10.7 L D Hct 32.1 L MCV 77 L MCH 25.6 L MCHC 33.3 RDW 15.4 H Plt Count 216 Seg Neutrophils % 78.2 H Lymphocytes % 11.5 L Monocytes % 7.0 Eosinophils % 2.9 Basophils % 0.4 Absolute Neutrophils 6.0 Absolute Lymphocytes 0.9 Absolute Monocytes 0.5 Absolute Eosinophils 0.2 Absolute Basophils 0.0 Sodium 132.0 L Potassium 4.7 Chloride 102 Carbon Dioxide 19 L Anion Gap 11 BUN 24 H Creatinine 1.81 H Est GFR ( Amer) 34 L Est GFR (Non-Af Amer) 28 L Glucose 110 Calcium 9.6 Iron 145.3 TIBC 291 % Saturation 50 Ferritin 202.00 Stool Occult Blood NEGATIVE 05/13/17 05/13/17 04:13 04:13 WBC 7.0 RBC 3.80 Hgb 9.8 L Hct 28.8 L MCV 76 L MCH 25.8 L MCHC 34.0 RDW 15.3 H Plt Count 191 Seg Neutrophils % Lymphocytes % Monocytes % Eosinophils % Basophils % Absolute Neutrophils Absolute Lymphocytes Absolute Monocytes Absolute Eosinophils Absolute Basophils Sodium 133.6 L Potassium 5.0 Chloride 105 Carbon Dioxide 21 L Anion Gap 8 BUN 26 H Creatinine 1.78 H Est GFR ( Amer) 34 L Est GFR (Non-Af Amer) 28 L Glucose 73 L Calcium 9.6 Iron TIBC % Saturation Ferritin Stool Occult Blood 05/08/17 08:42 Blood Blood Culture - Final NO GROWTH IN 5 DAYS 05/08/17 06:25 Blood Blood Culture - Final NO GROWTH IN 5 DAYS 05/06/17 05/06/17 05/08/17 00:28 06:07 03:12 Creatine Kinase 133 CK-MB (CK-2) Troponin I < 0.012 0.013 05/08/17 05/08/17 05/08/17 03:12 08:42 08:42 Creatine Kinase 125 CK-MB (CK-2) 1.38 1.39 Troponin I < 0.012 < 0.012 Impressions: Head CT 05/05/17 16:50 IMPRESSION: Biparietal small vessel chronic appearing white matter disease. No CT evidence of acute ischemic change, acute intracranial hemorrhage, mass effect, or midline shift. EVIDENCE OF ACUTE STROKE: NO. Renal Ultrasound 05/06/17 00:00 IMPRESSION: No hydronephrosis. Chest X-Ray 05/08/17 00:00 IMPRESSION: No acute radiographic finding in the chest. Assessment & Plan - Diagnosis (1) Anemia Qualifiers: Chronic kidney disease stage: stage 3 (moderate) Is this a current diagnosis for this admission?: Yes Plan: Improved. Iron deficiency anemia secondary to CKD and exacerbated by IVF. Pt with 8 kg wt gain this admission s/p receiving 7 L IV fluids for RAINER. Now s/p 2 units PRBC. Will monitor. UA and Guiac negative for blood. Normal colonoscopy 2 years ago per patient. 1- Continue iron supplementation 2- Appreciate Nephrology's input w/ regard to kidney disease; may require Epogen in future. (2) Paroxysmal atrial fibrillation Is this a current diagnosis for this admission?: Yes Plan: Pt with A. fib and RVR; now in sinus rhythm. 1- Appreciate Cardiology consultation 2- Continue Metoprolol 12.5 mg BID; will titrate up as BP allows 3- Holding anticoagulants 2/2 acute/chronic anemia (3) CAD (coronary artery disease) Qualifiers: Coronary Disease-Associated Artery/Lesion type: circle artery [place] vs. transplanted heart: unspecified whether circle or transplanted heart Associated angina: angina presence unspecified Qualified Code(s): I25.10 - Atherosclerotic heart disease of circle coronary artery without angina pectoris Is this a current diagnosis for this admission?: Yes (4) Diabetes Qualifiers: Diabetes mellitus type: type 2 Diabetes mellitus complication status: with kidney complications Diabetes mellitus complication detail: with chronic kidney disease Diabetes mellitus technician terminal and repeater insulin use: unspecified technician terminal and repeater insulin use status Chronic kidney disease stage: unspecified stage Qualified Code(s): E11.22 - Type 2 diabetes mellitus with diabetic chronic kidney disease Is this a current diagnosis for this admission?: Yes Plan: 1- Consistent carb diet 2- Accuchecks ACHS 3- Lantus 10 units BID 4- Humulin for SSI 5- Appreciate RD recommendations (5) Hypotension Qualifiers: Hypotension type: unspecified hypotension type Qualified Code(s): I95.9 - Hypotension, unspecified Is this a current diagnosis for this admission?: Yes Plan: Improved and no longer symptomatic with activity; will ask PT to evaluate patient. Afib with RVR now converted to NSR, on low dose metoprolol. Has received IVF and 2 units PRBC. Cortisol and TSH levels normal. 1- Appreciate cardiology consultation and recommendations 2- Continue metoprolol 3- MARIA INES hose 4- Fall risk 5- Pt to evaluate and treat (6) Hyponatremia Is this a current diagnosis for this admission?: Yes Plan: Improving. Initial Na 117.4 now 133.6 after IVF. IVF discontinued, expect Na to continue to normalize with p.o. intake. Will continue to monitor. (7) RAINER (acute kidney injury) Plan: Resolved. Patient initially admitted with Creatinine of 4.69. RAINER determined to be 2/2 hypotension, has improved with IVF, PRBC, and adjustments to BP medications. Pt is has a history of diabetes and hypertension; likely has a component of chronic kidney disease. Creatinine has gradually improved and is now stable at 1.71. 1- Appreciate Nephrology consultation and recommendations 2- Avoid nephrotoxic medications (8) CKD stage 3 secondary to diabetes Is this a current diagnosis for this admission?: Yes Plan: RAINER corrected; creatinine stabilized at 1.78. 1- Appreciate nephrology consultation and recommendations; pt should f/u with their office 10-14 days following discharge. - Time Time Spent with patient: 25-34 minutes Medications reviewed and adjusted accordingly: Yes Anticipated discharge: Home Within: within 48 hours
[2017-05-13] MEDS: RISPERIDONE 1 MG TABLET PO SCH (21:33)
[2017-05-13] MEDS: ATORVASTATIN CALCIUM 20 MG TABLET PO SCH (21:33)
[2017-05-14 05:02] LABS: HEMATOCRIT 29.2 % (36.0-47.0); HEMOGLOBIN 9.9 g/dL (12.0-15.5); HGB HCT DIFFERENCE 0.5; MEAN CORPUSCULAR HEMOGLOBIN 25.8 pg (27.0-33.4); MEAN CORPUSCULAR HGB CONC 33.8 g/dL (32.0-36.0); MEAN CORPUSCULAR VOLUME 77 fl (80-97); RED BLOOD COUNT 3.82 10^6/uL (3.72-5.28); RED CELL DISTRIBUTION WIDTH 15.3 % (11.5-14.0); WHITE BLOOD COUNT 6.6 10^3/uL (4.0-10.5)
[2017-05-14 05:27] LABS: ANION GAP 9 (5-19); BLOOD UREA NITROGEN 23 mg/dL (7-20); CALCIUM 9.6 mg/dL (8.4-10.2); CARBON DIOXIDE 20 mmol/L (22-30); CHLORIDE 104 mmol/L (98-107); CREATININE RESULT 1.67 mg/dL (0.52-1.25); GLUCOSE 73 mg/dL (75-110); POTASSIUM 4.7 mmol/L (3.6-5.0)
[2017-05-14 07:56] LABS: APPEARANCE,URINE CLEAR; BILIRUBIN,URINE NEGATIVE (NEGATIVE); GLUCOSE, URINE NEGATIVE (NEGATIVE); KETONES,URINE NEGATIVE (NEGATIVE); LEUKOCYTE ESTERASE,URINE MODERATE (NEGATIVE); NITRITE,URINE NEGATIVE (NEGATIVE); PROTEIN,URINE NEGATIVE (NEGATIVE); URINE SPECIFIC GRAVITY 1.002; UROBILINOGEN,URINE NEGATIVE mg/dL (<2.0)
[2017-05-14] MEDS: METOPROLOL TARTRATE 25 MG TABLET PO SCH (09:41)
[2017-05-14] MEDS: LANSOPRAZOLE 30 MG TAB.RAP.DR PO SCH (09:42)
[2017-05-14] MEDS: SERTRALINE HCL 50 MG TABLET PO SCH (09:42)
[2017-05-14] MEDS: RANOLAZINE 500 MG TAB.SR.12H PO SCH (09:42)
[2017-05-14] MEDS: FERROUS SULFATE 325 MG TABLET PO SCH (09:42)
[2017-05-14] MEDS: DONEPEZIL HCL 5 MG TABLET PO SCH (09:42)
[2017-05-14] MEDS: OMEGA-3 ACID ETHYL ESTERS 1 GM CAPSULE PO SCH (09:42)
[2017-05-14] MEDS: INSULIN GLARGINE,HUM.REC.ANLOG 300 UNIT/3 ML INSULN.PEN SUBCUT SCH (10:47)
--- NOTE | 2017-05-14 11:56 | PDOC DISCHARGE SUMMARY ---
General - Admit/Disc Date/PCP Admission Date/Primary Care Provider: 05/05/17 21:26 Discharge Date: 05/14/17 - Discharge Diagnosis (1) Anemia Is this a current diagnosis for this admission?: Yes Summary: Patient with baseline anemia related to chronic kidney disease. On admission hemoglobin of 11.3 that decreased to 7.8 secondary to hemodilution; pt recieved >7 L for treatment of RAINER. She was transfused 2 units PRBC. UA and Guiac were negative for blood. Pt reports normal colonoscopy 2 years ago. Hgb now stable at 9.9. To continue p.o. iron supplementation on discharge. (2) Paroxysmal atrial fibrillation Is this a current diagnosis for this admission?: Yes Summary: Pt with paroxysmal atrial fibrillation. Cardiology was consulted. She was placed on low dose metoprolol and spontaneously converted to a normal sinus rhythm. Chronic anticoagulation was held 2/2 anemia; recommend that PCP evaluate risks/benefits should she continue to experience atrial fibrillation. (3) CAD (coronary artery disease) Is this a current diagnosis for this admission?: Yes (4) Diabetes Is this a current diagnosis for this admission?: Yes Summary: Pt with intermediate manager insulin use for type 2 Diabetes mellitus. She did experience three separate hypoglycemic events while admitted which resolved with adjustments of long acting insulin. She will be discharged to home on her previous insulin regiment with recommendations for close monitoring and follow up with PCP. (5) Hypotension Is this a current diagnosis for this admission?: Yes Summary: Improved with IVF and PRBC. She is no longer symptomatic with activity and orthostats are negative. BP now averaging 110/40's. Will maintain low-dose metoprolol for PAF. (6) Hyponatremia Is this a current diagnosis for this admission?: Yes Summary: Initial NA found to be 117.4 which was gradually corrected with IVF. Nephrology was consulted for management of hypotention, RAINER, and presumed CKD. Per their recommendations, pt should restrict fluid intake to 1L per day. (7) RAINER (acute kidney injury) Summary: Pt was initially admitted with a Creatinine of 4.69. RAINER was determined to be 2 /2 hyppotension and improved with IVF, PRBC, and adjustments to BP medications. Nephrology was consulted and recommendations were implemented. Pt has a hx of diabetes and hypertension; therefore kidney function likely reflects a component of chronic kidney disease as her creatinine has been stable at 1.7 for the last 5 days. (8) CKD stage 3 secondary to diabetes Is this a current diagnosis for this admission?: Yes Summary: As above. - Additional Information Resuscitation Status: Full Code Discharge Diet: Diabetic Discharge Activity: Activity As Tolerated, Balance Activity w/Rest, Slowly Increase Activity Home Medications: Donepezil HCl [Aricept 5 mg Tablet] 5 mg PO DAILY 05/05/17 Ferrous Sulfate [Feosol 325 mg Tablet] 325 mg PO DAILY 05/05/17 Insulin Glargine,Hum.rec.anlog [Lantus Solostar] 25 unit SQ Q12 05/05/17 [place]-3 Fatty Acids [[place]-3] 1,000 mg PO DAILY 05/05/17 Omeprazole 40 mg PO DAILY 05/05/17 Risperidone [Risperdal] 2 mg PO QHS 05/05/17 Sertraline HCl [Zoloft 50 mg Tablet] 100 mg PO DAILY 05/05/17 Atorvastatin Calcium [Lipitor 20 mg Tablet] 20 mg PO QHS #30 tablet 05/06/17 Atorvastatin Calcium [Lipitor 20 mg Tablet] 20 mg PO QHS #30 tablet 05/14/17 Metoprolol Tartrate [Lopressor 25 mg Tablet] 12.5 mg PO Q12 #60 tablet 05/14/17 Ranolazine [Ranexa 500 mg Tab.sr] 500 mg PO Q12 #60 tab.sr.12h 05/14/17 History of Present Illness Patient complains of: Muscle twitching (resolved) History of Present Illness: Per H&P by Dr. Tinajero: RADHA HERNANDEZ is a 67 year old femalewith type 1 diabetes mellitus with peripheral neuropathy, difficult to control blood pressure, on multiple medications for same, hyperlipidemia, history of atrial fibrillation, with anticoagulant stopped earlier this year, known coronary artery disease, status post stent implant more than 5 years ago, but, by her account, no known underlying renal disease, who presents to the emergency room for evaluation of above complaint. Patient has been discussed with emergency room physician who evaluated the patient. Went to a local urgent care yesterday for complaints of mild headache and vision problems along with generalized weakness. Blood pressure there was reportedly 60/33. She was discharged to home, with instructions to hold her blood pressure medicines and return to acute care facility tomorrow. Presented to the emergency room this evening with complaints of intermittent mild twitching of her lips, never having had this before, along with intermittent now resolved mild substernal chest tightness. Has had nausea but no vomiting. No fever or chills, Has had a number of diarrheal stools over the last 2-3 days, without blood. 2 today. No friends or family with similar complaints. No abdominal pain. States a number of medication dosages were increased by her primary care provider approximately a month ago. She is compliant with her medications. Currently resting quietly, denying any pain. Emergency room physician did discuss the patient by phone with Dr. Santacruz, on- call cook frozen dessert at [facility]. We have no nephrology coverage at our facility this week. Dr. Santacruz gave basic recommendations, but did not feel dialysis was warranted, and also did not specifically feel that transfer to a tertiary center was warranted. Physical Exam Vital Signs: Temp Pulse Resp BP Pulse Ox 98.1 F 71 16 122/47 L 100 05/14/17 07:42 05/14/17 07:42 05/14/17 07:42 05/14/17 07:42 05/14/17 07:42 Intake & Output 05/13/17 05/14/17 05/15/17 06:59 06:59 06:59 Intake Total 4259 2497 Output Total 0 Balance 4259 2497 Weight 100.1 kg 98.7 kg General appearance: PRESENT: no acute distress, obese, well-developed, well- nourished Head exam: PRESENT: atraumatic, normocephalic Eye exam: PRESENT: conjunctiva pink, EOMI, PERRLA. ABSENT: scleral icterus Ear exam: PRESENT: normal external ear exam Mouth exam: PRESENT: moist, tongue midline Neck exam: ABSENT: carotid bruit, JVD, lymphadenopathy, thyromegaly Respiratory exam: PRESENT: clear to auscultation ricardo, symmetrical, unlabored. ABSENT: rales, rhonchi, wheezes Cardiovascular exam: PRESENT: RRR. ABSENT: diastolic murmur, rubs, systolic murmur Pulses: PRESENT: normal dorsalis pedis pul Vascular exam: PRESENT: normal capillary refill GI/Abdominal exam: PRESENT: normal bowel sounds, soft. ABSENT: distended, guarding, mass, organolmegaly, rebound, tenderness Rectal exam: PRESENT: deferred Extremities exam: PRESENT: full ROM. ABSENT: calf tenderness, clubbing, pedal edema Neurological exam: PRESENT: alert, awake, oriented to person, oriented to place , oriented to time, oriented to situation, CN II-XII grossly intact. ABSENT: motor sensory deficit Psychiatric exam: PRESENT: appropriate affect, normal mood. ABSENT: homicidal ideation, suicidal ideation Skin exam: PRESENT: dry, intact, warm. ABSENT: cyanosis, rash Results Laboratory Results: 05/14/17 04:16 05/14/17 04:16 05/14/17 05/14/17 05/14/17 04:16 04:16 07:10 WBC 6.6 RBC 3.82 Hgb 9.9 L Hct 29.2 L MCV 77 L MCH 25.8 L MCHC 33.8 RDW 15.3 H Plt Count 177 Sodium 133.0 L Potassium 4.7 Chloride 104 Carbon Dioxide 20 L Anion Gap 9 BUN 23 H Creatinine 1.67 H Est GFR ( Amer) 37 L Est GFR (Non-Af Amer) 30 L Glucose 73 L Calcium 9.6 Urine Color STRAW Urine Appearance CLEAR Urine pH 6.0 Ur Specific [place] 1.002 Urine Protein NEGATIVE Urine Glucose (UA) NEGATIVE Urine Ketones NEGATIVE Urine Blood NEGATIVE Urine Nitrite NEGATIVE Ur Leukocyte Esterase MODERATE H Urine WBC (Auto) 48 Urine RBC (Auto) 0 05/08/17 08:42 Blood Blood Culture - Final NO GROWTH IN 5 DAYS 05/08/17 06:25 Blood Blood Culture - Final NO GROWTH IN 5 DAYS 05/06/17 05/06/17 05/08/17 00:28 06:07 03:12 Creatine Kinase 133 CK-MB (CK-2) Troponin I < 0.012 0.013 05/08/17 05/08/17 05/08/17 03:12 08:42 08:42 Creatine Kinase 125 CK-MB (CK-2) 1.38 1.39 Troponin I < 0.012 < 0.012 Impressions: Head CT 05/05/17 16:50 IMPRESSION: Biparietal small vessel chronic appearing white matter disease. No CT evidence of acute ischemic change, acute intracranial hemorrhage, mass effect, or midline shift. EVIDENCE OF ACUTE STROKE: NO. Renal Ultrasound 05/06/17 00:00 IMPRESSION: No hydronephrosis. Chest X-Ray 05/08/17 00:00 IMPRESSION: No acute radiographic finding in the chest. Qualifiers PATEINT BEING DISCHARGED WITH ANY OF THE FOLLOWING DIAGNOSIS?: No
[2017-05-14 15:01] VITALS: BP 126/51
== END 2017-05-14 15:37 | disposition home or self-care (01) | DRG 683 ==
LOC: ER 16:44 → EH 20:36 → UNDOADMIN 20:36 → EH 21:26 → 3W 22:35 → ICU 05-08 08:00 → 3W 05-09 18:06
PROVIDERS: ADMIT Family Medicine; ATTEND Family Medicine
PROC: 30233N1 Transfusion of Nonautologous Red Blood Cells into Peripheral Vein, Percutaneous Approach (ICD-10-PCS; principal; 2017-05-12)
DX: N17.9 Acute kidney failure, unspecified (principal); E87.1 Hypo-osmolality and hyponatremia; I95.9 Hypotension, unspecified; D50.9 Iron deficiency anemia, unspecified; I12.9 Hypertensive chronic kidney disease with stage 1 through stage 4 chronic kidney disease, or unspecified chronic kidney disease; E10.42 Type 1 diabetes mellitus with diabetic polyneuropathy; E10.649 Type 1 diabetes mellitus with hypoglycemia without coma; N18.3 Chronic kidney disease, stage 3 (moderate); E83.52 Hypercalcemia; D63.1 Anemia in chronic kidney disease; E11.22 Type 2 diabetes mellitus with diabetic chronic kidney disease; I48.0 Paroxysmal atrial fibrillation; E78.5 Hyperlipidemia, unspecified; R07.9 Chest pain, unspecified; R00.1 Bradycardia, unspecified; F03.90 Unspecified dementia, unspecified severity, without behavioral disturbance, psychotic disturbance, mood disturbance, and anxiety; Z79.4 Long term (current) use of insulin; Z86.73 Personal history of transient ischemic attack (TIA), and cerebral infarction without residual deficits; I25.10 Atherosclerotic heart disease of native coronary artery without angina pectoris; Z79.899 Other long term (current) drug therapy; Z95.5 Presence of coronary angioplasty implant and graft
CPT/HCPCS: 36415; 36430; 70450; 71010; 76770; 78452; 80048; 80053; 80061; 81001; 82024; 82272; 82533; 82550; 82553; 82728; 82962; 83036; 83540; 83550; 83605; 83735; 83930; 83935; 83970; 84100; 84300; 84439; 84443; 84481; 84484; 85025; 85027; 85610; 85730; 86850; 86900; 86901; 86920; 87040; 93005; 93010; 93017; 93306; 96360; 99291; A9500; G8978-GP; G8979-GP; J0280; J1644; J1815; J2785; J3475; J3490; J7030; J7060; P9016; Q9969

== ENCOUNTER → 2017-05-29 | Outpatient (CLI) | payer MEDICARE, MEDICAID ==
[2017-05-29 10:08] LABS: ABSOLUTE EOSINOPHILS # (AUTO) 0.2 10^3/uL (0.0-0.6); ABSOLUTE LYMPHOCYTES (AUTO) 0.8 10^3/uL (0.5-4.7); ABSOLUTE MONOCYTES (AUTO) 0.4 10^3/uL (0.1-1.4); BASOPHILS % (AUTO) 0.4 % (0-2); EOSINOPHILS % (AUTO) 3.1 % (0-6); HEMATOCRIT 30.6 % (36.0-47.0); HEMOGLOBIN 10.3 g/dL (12.0-15.5); HGB HCT DIFFERENCE 0.3; LYMPHOCYTES % (AUTO) 14.5 % (13-45); MEAN CORPUSCULAR HEMOGLOBIN 25.9 pg (27.0-33.4); MEAN CORPUSCULAR HGB CONC 33.7 g/dL (32.0-36.0); MEAN CORPUSCULAR VOLUME 77 fl (80-97); RED BLOOD COUNT 3.98 10^6/uL (3.72-5.28); RED CELL DISTRIBUTION WIDTH 15.5 % (11.5-14.0); WHITE BLOOD COUNT 5.3 10^3/uL (4.0-10.5)
[2017-05-29 10:35] LABS: ALANINE AMINOTRANSFERASE 32 U/L (9-52); ALBUMIN 3.5 g/dL (3.5-5.0); ALKALINE PHOSPHATASE 122 U/L (38-126); ANION GAP 12 (5-19); ASPARTATE AMINO TRANSFERASE 16 U/L (14-36); BILIRUBIN,DIRECT 0.5 mg/dL (0.0-0.4); BILIRUBIN,TOTAL 0.5 mg/dL (0.2-1.3); BLOOD UREA NITROGEN 14 mg/dL (7-20); CALCIUM 9.9 mg/dL (8.4-10.2); CARBON DIOXIDE 23 mmol/L (22-30); CHLORIDE 102 mmol/L (98-107); CREATININE RESULT 1.41 mg/dL (0.52-1.25); GLUCOSE 93 mg/dL (75-110); POTASSIUM 3.7 mmol/L (3.6-5.0); SODIUM 137.2 mmol/L (137-145)
[2017-05-29 10:55] LABS: MAGNESIUM 1.2 mg/dL (1.6-2.3)
== END ==
LOC: OD 08:35
PROVIDERS: ATTEND Internal Medicine Nephrology
DX: E11.22 Type 2 diabetes mellitus with diabetic chronic kidney disease (principal); I12.9 Hypertensive chronic kidney disease with stage 1 through stage 4 chronic kidney disease, or unspecified chronic kidney disease; N18.3 Chronic kidney disease, stage 3 (moderate); R60.9 Edema, unspecified
CPT/HCPCS: 36415; 80053; 83735; 85025

== ENCOUNTER → 2017-07-02 | Outpatient (CLI) | payer MEDICARE, MEDICAID ==
[2017-07-02 08:44] LABS: HEMATOCRIT 33.9 % (36.0-47.0); HEMOGLOBIN 11.2 g/dL (12.0-15.5); HGB HCT DIFFERENCE -0.3; MEAN CORPUSCULAR HEMOGLOBIN 26.2 pg (27.0-33.4); MEAN CORPUSCULAR VOLUME 80 fl (80-97); RED BLOOD COUNT 4.27 10^6/uL (3.72-5.28); RED CELL DISTRIBUTION WIDTH 15.9 % (11.5-14.0); WHITE BLOOD COUNT 4.5 10^3/uL (4.0-10.5)
[2017-07-02 08:48] LABS: APPEARANCE,URINE CLEAR; BILIRUBIN,URINE NEGATIVE (NEGATIVE); GLUCOSE, URINE NEGATIVE (NEGATIVE); KETONES,URINE NEGATIVE (NEGATIVE); LEUKOCYTE ESTERASE,URINE SMALL (NEGATIVE); NITRITE,URINE NEGATIVE (NEGATIVE); PROTEIN,URINE NEGATIVE (NEGATIVE); URINE SPECIFIC GRAVITY 1.006; UROBILINOGEN,URINE NEGATIVE mg/dL (<2.0)
[2017-07-02 09:04] LABS: ANION GAP 8 (5-19); BLOOD UREA NITROGEN 27 mg/dL (7-20); CALCIUM 10.9 mg/dL (8.4-10.2); CARBON DIOXIDE 28 mmol/L (22-30); CHLORIDE 102 mmol/L (98-107); CREATININE RESULT 1.61 mg/dL (0.52-1.25); GLUCOSE 94 mg/dL (75-110); MAGNESIUM 1.7 mg/dL (1.6-2.3); POTASSIUM 4.3 mmol/L (3.6-5.0); SODIUM 137.9 mmol/L (137-145)
[2017-07-06 14:39] LABS: A/G RATIO 1.3 (0.7-1.7); ALPHA-1-GLOBULIN 2 0.2 g/dL (0.0-0.4); GAMMA GLOBULIN 0.8 g/dL (0.4-1.8); PROTEIN TOTAL SERUM 6.4 g/dL (6.0-8.5)
== END ==
LOC: OD 07:22
PROVIDERS: ATTEND Internal Medicine Nephrology
DX: N18.3 Chronic kidney disease, stage 3 (moderate) (principal); I50.9 Heart failure, unspecified; D64.9 Anemia, unspecified; E83.42 Hypomagnesemia
CPT/HCPCS: 36415; 80048; 81001; 82728; 83540; 83550; 83735; 84165; 85027

== ENCOUNTER → 2017-08-14 | Outpatient (CLI) | payer MEDICARE, MEDICAID ==
[2017-08-14 08:06] LABS: HEMATOCRIT 33.8 % (36.0-47.0); MEAN CORPUSCULAR HEMOGLOBIN 26.5 pg (27.0-33.4); MEAN CORPUSCULAR HGB CONC 32.6 g/dL (32.0-36.0); MEAN CORPUSCULAR VOLUME 81 fl (80-97); PLATELET COUNT 241 10^3/uL (150-450); RED BLOOD COUNT 4.16 10^6/uL (3.72-5.28); RED CELL DISTRIBUTION WIDTH 14.6 % (11.5-14.0); WHITE BLOOD COUNT 3.9 10^3/uL (4.0-10.5)
[2017-08-14 08:16] LABS: APPEARANCE,URINE CLEAR; BILIRUBIN,URINE NEGATIVE (NEGATIVE); COLOR,URINE YELLOW; GLUCOSE, URINE NEGATIVE (NEGATIVE); KETONES,URINE NEGATIVE (NEGATIVE); LEUKOCYTE ESTERASE,URINE TRACE (NEGATIVE); NITRITE,URINE NEGATIVE (NEGATIVE); PROTEIN,URINE 30 mg/dL (NEGATIVE); URINE SPECIFIC GRAVITY 1.009; UROBILINOGEN,URINE NEGATIVE mg/dL (<2.0)
[2017-08-14 08:28] LABS: ALANINE AMINOTRANSFERASE 29 U/L (9-52); ALKALINE PHOSPHATASE 150 U/L (38-126); ANION GAP 8 (5-19); ASPARTATE AMINO TRANSFERASE 22 U/L (14-36); BILIRUBIN,DIRECT 0.3 mg/dL (0.0-0.4); BILIRUBIN,TOTAL 0.3 mg/dL (0.2-1.3); BLOOD UREA NITROGEN 26 mg/dL (7-20); CALCIUM 11.3 mg/dL (8.4-10.2); CARBON DIOXIDE 26 mmol/L (22-30); CHLORIDE 105 mmol/L (98-107); GLUCOSE 90 mg/dL (75-110); IRON(TIBC) 57.8 ug/dL (37-170); PHOSPHORUS 2.8 mg/dL (2.5-4.5); POTASSIUM 4.8 mmol/L (3.6-5.0); SODIUM 138.5 mmol/L (137-145); TOTAL PROTEIN 6.6 g/dL (6.3-8.2)
== END ==
LOC: OD 07:20
PROVIDERS: ATTEND Internal Medicine Nephrology
DX: N18.3 Chronic kidney disease, stage 3 (moderate) (principal); D64.9 Anemia, unspecified; I50.9 Heart failure, unspecified; E83.42 Hypomagnesemia
CPT/HCPCS: 36415; 80053; 81001; 82043; 82728; 83540; 83550; 83970; 84100; 84443; 85027

== ENCOUNTER → 2017-10-02 | Outpatient (CLI) | payer MEDICARE, MEDICAID | LOC: OD 14:25 | DX: M16.11 Unilateral primary osteoarthritis, right hip (principal) | CPT/HCPCS: 36415; 83036 ==

== ENCOUNTER → 2017-10-31 | Outpatient (CLI) | payer MEDICARE, MEDICAID ==
[2017-10-31 11:29] LABS: HEMATOCRIT 34.9 % (36.0-47.0); HEMOGLOBIN 11.2 g/dL (12.0-15.5); MEAN CORPUSCULAR HEMOGLOBIN 26.1 pg (27.0-33.4); MEAN CORPUSCULAR VOLUME 82 fl (80-97); PLATELET COUNT 279 10^3/uL (150-450); RED BLOOD COUNT 4.28 10^6/uL (3.72-5.28); WHITE BLOOD COUNT 4.4 10^3/uL (4.0-10.5)
[2017-10-31 11:41] LABS: AMORPHOUS SEDIMENT,URINE TRACE /HPF; APPEARANCE,URINE SLIGHTLY-CLOUDY; BILIRUBIN,URINE NEGATIVE (NEGATIVE); COLOR,URINE YELLOW; GLUCOSE, URINE NEGATIVE (NEGATIVE); KETONES,URINE NEGATIVE (NEGATIVE); LEUKOCYTE ESTERASE,URINE LARGE (NEGATIVE); NITRITE,URINE NEGATIVE (NEGATIVE); PROTEIN,URINE 30 mg/dL (NEGATIVE); URINE SPECIFIC GRAVITY 1.006; UROBILINOGEN,URINE NEGATIVE mg/dL (<2.0)
[2017-10-31 11:47] LABS: ANION GAP 9 (5-19); BLOOD UREA NITROGEN 22 mg/dL (7-20); CARBON DIOXIDE 27 mmol/L (22-30); CHLORIDE 105 mmol/L (98-107); GLUCOSE 167 mg/dL (75-110); PHOSPHORUS 2.9 mg/dL (2.5-4.5); POTASSIUM 4.4 mmol/L (3.6-5.0); SODIUM 140.5 mmol/L (137-145)
[2017-10-31 11:54] LABS: UR PRO/CREAT RATIO RESULT 1.2 mg/mg (0.0-0.2); URINE CREATININE 46.9 mg/dL (15-278); URINE PROTEIN 55.9 mg/dL (<12)
== END ==
LOC: OD 10:56
PROVIDERS: ATTEND Internal Medicine Nephrology
DX: N18.3 Chronic kidney disease, stage 3 (moderate) (principal); E83.42 Hypomagnesemia; D64.9 Anemia, unspecified; I50.9 Heart failure, unspecified
CPT/HCPCS: 36415; 80048; 81001; 82570; 83735; 83970; 84100; 84156; 85027

== ENCOUNTER 2018-04-19 00:45 | Emergency (ER) | payer MEDICARE, MEDICAID ==
[2018-04-19] MEDS ORDERED: DEXTROSE 50%-WATER 25 GM/50 ML DISP.SYRIN IV ONE ×2 (01:22→01:25)
--- NOTE | 2018-04-19 01:35 | ER Document Report ---
ED General - General Chief Complaint: Other Stated Complaint: WEAKNESS Time Seen by Provider: 04/19/18 01:27 Notes: Patient is a 67-year-old female presents with an episode of feeling very weak and sweaty. When she was brought back to the room in the ER they did check her sugar and it was down to 30. Since then she is eating food and drink some juice and she feels much improved. Patient denies any recent fevers or infections. No vomiting or diarrhea. She says that she takes insulin for elevated blood sugar as needed. She says for the last week her blood sugar has been normal and therefore she has not had use any insulin. She denies being on any oral diabetic medications. No recent antibiotic use. No other complaints at this time. No chest pain or shortness of breath. TRAVEL OUTSIDE OF THE [place] IN LAST 30 DAYS: No - Related Data Allergies/Adverse Reactions: Sulfa (Sulfonamide Antibiotics) Allergy (Verified 04/19/18 00:49) Past Medical History - Social History Smoking Status: Unknown if Ever Smoked Frequency of alcohol use: None Drug Abuse: None Family History: Hypertension - Past Medical History Cardiac Medical History: Reports: Hx Atrial Fibrillation - History of same; anticoagulant DC'd spring 2016., Hx Coronary Artery Disease - Stent 1 more than 5 years ago, Hx Heart Attack, Hx Hypercholesterolemia, Hx Hypertension Denies: Hx Congestive Heart Failure, Hx DVT, Hx Pulmonary Embolism Pulmonary Medical History: Denies: Hx Asthma, Hx COPD, Hx Sleep Apnea Neurological Medical History: Reports: Hx Seizures - Distant history 1; never on antiepileptic Endocrine Medical History: Reports: Hx Diabetes Mellitus Type 1, Hx Diabetes Mellitus Type 2 Renal/ Medical History: Denies: Hx Peritoneal Dialysis GI Medical History: Denies: Hx Cirrhosis, Hx Gastroesophageal Reflux Disease, Hx Hepatitis Musculoskeletal Medical History: Reports Hx Arthritis, Reports Hx Musculoskeletal Trauma - Fractured left femur pinned Psychiatric Medical History: Denies: Hx Depression Infectious Medical History: Denies: Hx Hepatitis Past Surgical History: Reports: Hx Cardiac Catheterization - stents placed, Hx Cholecystectomy, Hx Coronary Stent - 1, more than 5 years ago, Hx Hysterectomy , Hx Orthopedic Surgery - Fracture left femur Review of Systems - Review of Systems Notes: My Normal Review Basic REVIEW OF SYSTEMS: CONSTITUTIONAL : Denies fever, chills, or sweats. Denies recent illness. EENT: Denies eye, ear, throat, or mouth pain or symptoms. Denies nasal or sinus congestion. CARDIOVASCULAR: Denies chest pain. RESPIRATORY: Denies cough, cold, or chest congestion. Denies shortness of breath, difficulty breathing, or wheezing. GASTROINTESTINAL: Denies abdominal pain. Denies nausea, vomiting, or diarrhea. MUSCULOSKELETAL: Denies neck or back pain or joint pain or swelling. SKIN: Denies rash or skin lesions. NEUROLOGICAL: Episode of feeling very generally weak. ALL OTHER SYSTEMS REVIEWED AND NEGATIVE. Physical Exam - Vital signs Vitals: Pulse Resp BP Pulse Ox 58 L 24 H 153/60 H 99 04/19/18 00:51 04/19/18 00:51 04/19/18 00:51 04/19/18 00:51 - Notes Notes: General Appearance: Well nourished, alert, cooperative, no acute distress, no obvious discomfort. Well-appearing. my exam is after the patient received orange juice to raise her sugar. Vitals: reviewed, See vital signs table. Head: no swelling or tenderness to the head Eyes: PERRL, EOMI, Conjuctiva clear Mouth: No decreasd moisture Lungs: No wheezing, No rales, No rhonci, No accessory muscle use, good air exchange bilaterally. Heart: Normal rate, Regular rythm, No murmur, no rub Abdomen: Normal BS, soft, No rigidity, No abdominal tenderness, No guarding, no rebound, no abdominal masses, no organomegaly Extremities: strength 5/5 in all extremities, good pulses in all extremities, no swelling or tenderness in the extremities, no edema. Skin: warm, dry, appropriate color, no rash Neuro: speech clear, oriented x 3, normal affect, responds appropriately to questions. Cranial nerves II through XII are intact. Distal sensation intact. Patient moves all extremities without difficulty. Normal gait. Course - Re-evaluation Re-evalutation: 04/19/18 03:55 Since eating patient continues to do well. Blood sugar continues to stay up without recurrent drops. She is up and walk around without any difficulty. Just awaiting results of her urine at this time. 04/19/18 05:04 The exact cause of the patient's episode of hypoglycemia is not clear. She did not take any insulin. Her C-peptide levels are low. She has no fever. She has no signs of infection. Her blood work does not show any concerning findings. She has had no symptoms of heart attack. Her cardiac enzymes and EKG are negative. Informed patient that she should avoid her insulin unless her sugar is running high. I informed her that if she is feeling weak or fatigued that she should check her sugar immediately and eat something if it is low. If her sugar is low again then she should return to ER for reevaluation. I instructed her follow-up with her doctor this week. I encouraged her return to ER immediately if she has recurrent low blood sugars, fevers, chest pain, difficulty breathing, or she feels unwell. Patient agrees with plan and will be discharged home. Dictation of this chart was performed using voice recognition software; therefore, there may be some unintended grammatical errors. 04/19/18 05:04 - Vital Signs Vital signs: Temp Pulse Resp BP Pulse Ox 97.5 F 58 L 24 H 153/60 H 99 04/19/18 03:49 04/19/18 00:51 04/19/18 00:51 04/19/18 00:51 04/19/18 00:51 - Laboratory Result Diagrams: 04/19/18 01:20 04/19/18 01:20 Laboratory results interpreted by me: 04/19/18 04/19/18 04/19/18 01:20 01:20 01:20 Hgb 10.1 L Hct 31.2 L MCH 26.3 L RDW 15.1 H BUN 29 H Creatinine 1.68 H Est GFR ( Amer) 37 L Est GFR (Non-Af Amer) 30 L Glucose 25 L* C-Peptide 0.230 L Calcium 10.3 H AST 55 H Alkaline Phosphatase 158 H Urine Protein 04/19/18 03:41 Hgb Hct MCH RDW BUN Creatinine Est GFR ( Amer) Est GFR (Non-Af Amer) Glucose C-Peptide Calcium AST Alkaline Phosphatase Urine Protein 100 H - EKG Interpretation by Me Additional EKG results interpreted by me: 04/19/18 01:33 EKG is reviewed and interpreted by me. EKG shows sinus bradycardia with rate of [address] segment elevation in the lateral precordial leads. No reciprocal ST segment depression. IA interval, QRS duration, QTc intervals are within normal range. The last mild ST segment elevations are unchanged comparison to her old EKG from May 11, 2017. 04/19/18 01:36 Discharge - Discharge Clinical Impression: Hypoglycemia Condition: Good Disposition: HOME, SELF-CARE Additional Instructions: Please keep a close eye on your blood sugars over the next several days. Please avoid using insulin unless your sugars are running high. Please make sure you eat something such as peanut butter and crackers before going to bed. If you are feeling weak or tired please check your blood sugar immediately and eat something if it is below 90. Please return to the ER if your sugar goes below 50 requiring you to eat something. Please return to the ER immediately if you have any fevers, chest pain, difficulty breathing, or if you feel unwell in any way. Follow up with your doctor this week for reevaluaton.
[2018-04-19 01:44] LABS: ABSOLUTE EOSINOPHILS # (AUTO) 0.2 10^3/uL (0.0-0.6); ABSOLUTE LYMPHOCYTES (AUTO) 1.7 10^3/uL (0.5-4.7); ABSOLUTE MONOCYTES (AUTO) 0.5 10^3/uL (0.1-1.4); ABSOLUTE NEUT (AUTO) 2.6 10^3/uL (1.7-8.2); BASOPHILS % (AUTO) 0.7 % (0-2); HEMATOCRIT 31.2 % (36.0-47.0); HEMOGLOBIN 10.1 g/dL (12.0-15.5); LYMPHOCYTES % (AUTO) 33.2 % (13-45); MEAN CORPUSCULAR HEMOGLOBIN 26.3 pg (27.0-33.4); MEAN CORPUSCULAR HGB CONC 32.5 g/dL (32.0-36.0); MEAN CORPUSCULAR VOLUME 81 fl (80-97); MONOCYTES % (AUTO) 9.3 % (3-13); PLATELET COUNT 266 10^3/uL (150-450); RED BLOOD COUNT 3.85 10^6/uL (3.72-5.28); RED CELL DISTRIBUTION WIDTH 15.1 % (11.5-14.0); SEGMENTED NEUTROPHILS % (AUTO) 52.8 % (42-78); TOTAL CELLS COUNTED % (AUTO) 100 %
[2018-04-19 01:48] LABS: VENOUS BLOOD BASE EXCESS -2.2 mmol/L; VENOUS BLOOD HCO3 24.1 mmol/L (20-32); VENOUS BLOOD PCO2 48.2 mmHg (35-63); VENOUS BLOOD PH 7.32 (7.30-7.42)
--- NOTE | 2018-04-19 01:57 | RADIOLOGY REPORT (SQ) ---
XR CHEST 1 VIEW HISTORY: Weakness. COMPARISON: 05/08/2017 FINDINGS/IMPRESSION: Query mild cardiomegaly. Pulmonary vasculature is unremarkable. Lungs are clear. No pleural effusion or pneumothorax is seen. No acute osseous findings.
[2018-04-19 02:03] LABS: ALANINE AMINOTRANSFERASE 37 U/L (9-52); ALBUMIN 3.7 g/dL (3.5-5.0); ALKALINE PHOSPHATASE 158 U/L (38-126); ANION GAP 6 (5-19); ASPARTATE AMINO TRANSFERASE 55 U/L (14-36); BILIRUBIN,DIRECT 0.3 mg/dL (0.0-0.4); BILIRUBIN,TOTAL 0.3 mg/dL (0.2-1.3); BLOOD UREA NITROGEN 29 mg/dL (7-20); CALCIUM 10.3 mg/dL (8.4-10.2); CARBON DIOXIDE 26 mmol/L (22-30); CHLORIDE 107 mmol/L (98-107); POTASSIUM 3.9 mmol/L (3.6-5.0); SODIUM 139.2 mmol/L (137-145); TOTAL PROTEIN 6.9 g/dL (6.3-8.2)
[2018-04-19 02:23] LABS: GLUCOSE 25 mg/dL (75-110)
[2018-04-19 04:36] LABS: APPEARANCE,URINE CLEAR; BILIRUBIN,URINE NEGATIVE (NEGATIVE); COLOR,URINE YELLOW; GLUCOSE, URINE NEGATIVE (NEGATIVE); KETONES,URINE NEGATIVE (NEGATIVE); LEUKOCYTE ESTERASE,URINE NEGATIVE (NEGATIVE); NITRITE,URINE NEGATIVE (NEGATIVE); PROTEIN,URINE 100 mg/dL (NEGATIVE); URINE SPECIFIC GRAVITY 1.006; UROBILINOGEN,URINE NEGATIVE mg/dL (<2.0)
[2018-04-19 05:12] VITALS: BP 155/67
--- NOTE | 2018-04-19 07:58 | EKG REPORT ---
SEVERITY:- BORDERLINE ECG - SINUS RHYTHM PROBABLE LATERAL INFARCT, OLD : Confirmed by: Ellie Osman 19-Apr-2018 07:56:32
== END 2018-04-19 05:21 | disposition home or self-care (01) ==
LOC: ER 00:45
DX: E11.649 Type 2 diabetes mellitus with hypoglycemia without coma (principal); R53.1 Weakness; R00.1 Bradycardia, unspecified; R61 Generalized hyperhidrosis; I25.10 Atherosclerotic heart disease of native coronary artery without angina pectoris; I10 Essential (primary) hypertension; I25.2 Old myocardial infarction; Z95.5 Presence of coronary angioplasty implant and graft; Z88.2 Allergy status to sulfonamides
CPT/HCPCS: 93005; 99285; 96374; 36415; 82962; 85025; 80053; 81001; 84484; 82803; 84681; 71045; 93010; J3490